=== PATIENT | male | born 1960 | race Caucasian/White ===

== ENCOUNTER → 2016-07-28 | Outpatient (CLI) | payer OTHER ==
[2016-05-05 05:51] VITALS: BP 146/74
[~2016-07-28] MED LIST: ASPI81TA2 PO; CEFU250S PO; CIPR250T30 PO; CRESTOR20 MG PO; DULO20CA PO; FENT1PAT21 TP; GUAI12003 PO; HYDR-2672 PO; HYDR200T5 PO; HYDR40TA PO; IPRA3AMP NEB; LEVO25TA4 PO; LORA0.5T PO; MULT-208 PO; MYCO500T PO; OMEP20CA9 PO; PRED5TAB PO; ZOLP5TAB PO
[2016-07-28 09:06] LABS: BASO % 1 % (0-3); EOS # 0.1 x10^3/uL (0.0-0.7); EOS % 1 % (0-3); HEMATOCRIT 38.4 % (39.0-53.0); HEMOGLOBIN 12.6 g/dL (13.0-17.5); LYMPH # 0.8 x10^3/uL (1.0-4.8); LYMPH % 9 % (24-48); MEAN CORPUSCULAR HEMOGLOBIN 31 pg (25-35); MEAN CORPUSCULAR HGB CONC 33 g/dL (31-37); MEAN CORPUSCULAR VOLUME 94 fL (79-100); MONO # 0.6 x10^3/uL (0.0-1.1); MONO % 7 % (0-9); NEUT # 7.2 x10^3uL (1.8-7.7); NEUT % 82 % (31-73); PLATELET COUNT 254 x10^3/uL (140-400); RED CELL DISTRIBUTION WIDTH 13.8 % (11.5-14.5); WHITE BLOOD COUNT 8.7 x10^3/uL (4.0-11.0)
[2016-07-28 09:11] LABS: ALBUMIN 3.7 g/dL (3.4-5.0); ALBUMIN/GLOBULIN RATIO 0.9 (1.0-1.7); C REACTIVE PROTEIN 3.1 mg/L (0-3.3); CALCIUM 8.8 mg/dL (8.5-10.1); CREATININE 1.2 mg/dL (0.7-1.3); GFR 62.2; POTASSIUM 3.6 mmol/L (3.5-5.1); TOTAL BILIRUBIN 0.3 mg/dL (0.2-1.0); TOTAL PROTEIN 7.7 g/dL (6.4-8.2)
[2016-07-28 10:27] LABS: SEDIMENTATION RATE 20 (0-15)
== END | disposition home or self-care (01) ==
LOC: LAB 09:22
PROVIDERS: ATTEND Internal Medicine
DX: M25.50 Pain in unspecified joint (principal)
CPT/HCPCS: 36415; 80053; 85027; 85651; 86140

== ENCOUNTER → 2016-10-18 | Outpatient (CLI) | payer OTHER ==
[2016-05-05 05:51] VITALS: BP 146/74
[~2016-10-18] MED LIST changes: +ASPI-630 PO; -ASPI81TA2 PO; -DULO20CA PO; +DULO20CA50 PO; -HYDR-2672 PO; +HYDR-2766 PO
[2016-10-18 14:54] LABS: BASO # 0.1 x10^3/uL (0.0-0.2); BASO % 1 % (0-3); EOS # 0.3 x10^3/uL (0.0-0.7); EOS % 5 % (0-3); HEMATOCRIT 36.6 % (39.0-53.0); HEMOGLOBIN 12.2 g/dL (13.0-17.5); LYMPH # 0.8 x10^3/uL (1.0-4.8); LYMPH % 14 % (24-48); MEAN CORPUSCULAR HEMOGLOBIN 31 pg (25-35); MEAN CORPUSCULAR HGB CONC 34 g/dL (31-37); MEAN CORPUSCULAR VOLUME 92 fL (79-100); MONO # 0.6 x10^3/uL (0.0-1.1); MONO % 11 % (0-9); NEUT # 3.7 x10^3uL (1.8-7.7); NEUT % 69 % (31-73); PLATELET COUNT 188 x10^3/uL (140-400); RED BLOOD COUNT 3.99 x10^6/uL (4.30-5.70); RED CELL DISTRIBUTION WIDTH 13.8 % (11.5-14.5); WHITE BLOOD COUNT 5.4 x10^3/uL (4.0-11.0)
[2016-10-18 14:57] LABS: ALBUMIN 3.7 g/dL (3.4-5.0); C REACTIVE PROTEIN 2.3 mg/L (0-3.3); CALCIUM 8.9 mg/dL (8.5-10.1); CREATININE 1.2 mg/dL (0.7-1.3); GFR 62.2; POTASSIUM 4.4 mmol/L (3.5-5.1); TOTAL BILIRUBIN 0.4 mg/dL (0.2-1.0); TOTAL PROTEIN 7.5 g/dL (6.4-8.2)
[2016-10-18 15:59] LABS: SEDIMENTATION RATE 22 (0-15)
== END | disposition home or self-care (01) ==
LOC: LAB 14:19
PROVIDERS: ATTEND Internal Medicine
DX: M05.742 Rheumatoid arthritis with rheumatoid factor of left hand without organ or systems involvement (principal); Z79.899 Other long term (current) drug therapy
CPT/HCPCS: 36415; 80053; 85027; 85651; 86140

== ENCOUNTER → 2017-03-23 | Outpatient (CLI) | payer MEDICARE ==
[2016-05-05 05:51] VITALS: BP 146/74
--- NOTE | 2017-03-23 17:55 | RAD ---
Chest x-ray Indication: Chest congestion, cough Technique: PA and lateral chest Comparison: None Findings: Heart is mildly enlarged in size. No pneumothorax or pleural effusion. There is honeycombing noted in bilateral lungs also seen on previous CT from 05/04/2016. Scattered patchy opacities are noted in the lung bases. Visualized bony thorax within normal limits. Impression: Findings of interstitial lung disease. Superimposed viral/atypical pneumonia not ruled out.
== END | disposition home or self-care (01) ==
LOC: DXRAD 13:29
PROVIDERS: ATTEND Family Medicine
DX: J98.4 Other disorders of lung (principal); I51.7 Cardiomegaly
CPT/HCPCS: 71020

== ENCOUNTER 2017-03-31 15:46 | Inpatient (IN) | payer OTHER, MEDICARE ==
[~2017-03-31] VITALS: Ht 181.6 cm; Wt 155.1 kg
[2017-03-31 16:11] VITALS: BP 162/82
[2017-03-31 16:55] LABS: ALBUMIN 3.1 g/dL (3.4-5.0); ALBUMIN/GLOBULIN RATIO 0.7 (1.0-1.7); CREATININE 1.3 mg/dL (0.7-1.3); GFR 56.5; POTASSIUM 4.1 mmol/L (3.5-5.1); TOTAL BILIRUBIN 0.4 mg/dL (0.2-1.0); TOTAL PROTEIN 7.7 g/dL (6.4-8.2)
--- NOTE | 2017-03-31 17:07 | RAD ---
CT of the chest without contrast, 03/31/2017: History: Pneumonia, fibrosis Noncontrast scans were obtained as requested. Comparison is made to a study from 05/04/2016. Again noted is extensive pulmonary fibrosis with bronchiectasis and honeycombing. There is dominant involvement of the right upper and lower lobes. There are also underlying emphysematous changes. No superimposed acute infiltrate or mass is seen. There is no evidence of pleural fluid. There is mild calcific plaquing of the thoracic aorta. Several coronary artery calcifications are noted. No mediastinal adenopathy is seen. The heart is of normal size. A lap band type device is in place related to the proximal aspect of the stomach. Moderate hypertrophic spurring is present in the spine with bony bridging at multiple levels. IMPRESSION: 1. Emphysema with fibrosis, bronchiectasis and honeycombing, similar to that seen on 05/04/2016. 2. No superimposed acute infiltrate is identified. PQRS Compliance Statement: One or more of the following individualized dose reduction techniques were utilized for this examination: 1. Automated exposure control 2. Adjustment of the mA and/or kV according to patient size 3. Use of iterative reconstruction technique
[2017-03-31 17:18] LABS: BASO # 0.1 x10^3/uL (0.0-0.2); BASO % 0 % (0-3); EOS # 0.2 x10^3/uL (0.0-0.7); EOS % 1 % (0-3); HEMATOCRIT 37.8 % (39.0-53.0); HEMOGLOBIN 12.7 g/dL (13.0-17.5); LYMPH # 0.5 x10^3/uL (1.0-4.8); LYMPH % 3 % (24-48); MEAN CORPUSCULAR HEMOGLOBIN 31 pg (25-35); MEAN CORPUSCULAR HGB CONC 34 g/dL (31-37); MEAN CORPUSCULAR VOLUME 91 fL (79-100); MONO % 6 % (0-9); NEUT # 15.2 x10^3uL (1.8-7.7); NEUT % 90 % (31-73); PLATELET COUNT 359 x10^3/uL (140-400); RED BLOOD COUNT 4.16 x10^6/uL (4.30-5.70); RED CELL DISTRIBUTION WIDTH 13.6 % (11.5-14.5); WHITE BLOOD COUNT 16.9 x10^3/uL (4.0-11.0)
[2017-03-31] MEDS ORDERED: MORP30TA83 PO (17:58)
[2017-03-31] MEDS ORDERED: TRIA0.25 PO (17:58)
[2017-03-31] MEDS ORDERED: CHOL2000 PO (17:58)
[2017-03-31] MEDS ORDERED: LORA1TAB47 PO (17:58)
[2017-03-31] MEDS ORDERED: CARB1TAB2 PO (17:58)
[2017-03-31] MEDS ORDERED: LEVO112T4 PO (17:58)
[2017-03-31] MEDS ORDERED: GUAI600T47 PO (17:58)
[2017-03-31] MEDS ORDERED: PANT40TA3 PO (17:58)
[2017-03-31] MEDS ORDERED: DOCU-109 PO (17:58)
[2017-03-31] MEDS: IPRATRPIUM/ALBUTEROL 0.5/2.5MG 3 ML NEBU. NEB SCH ×2 (18:15→21:34)
[2017-03-31 18:41] VITALS: BP 141/93
[2017-03-31] MEDS: VANCOMYCIN PER PHARMACY MC PRN (19:04)
[2017-03-31] MEDS ORDERED: IPRATRPIUM/ALBUTEROL 0.5/2.5MG 3 ML NEBU. NEB SCH (20:00)
[2017-03-31] MEDS: VANCOMYCIN 2 GM in IV NORMAL SALINE 500ML 500 ML IV SCH (20:15)
[2017-03-31] MEDS: LACTOBACILLUS RHAMNOSUS GG 1 CAPSULE. PO SCH (20:16)
[2017-03-31] MEDS: ZOLPIDEM 10 MG TABLET. PO SCH (20:17)
[2017-03-31] MEDS: HYDROXYCHLOROQUINE 200 MG TABLET PO SCH (20:19)
[2017-03-31] MEDS: MORPHINE ER 30 MG TABLET.ER PO SCH (20:19)
[2017-03-31] MEDS: CARBIDOPA/LEVODOPA 25/100MG TABLET PO SCH (20:20)
[2017-03-31 22:22] LABS: % BANDS 2 % (0-9); % BASOS 1 % (0-3); % EOS 1 % (0-5); % LYMPHS 3 % (24-48); % MONOS 7 % (0-10); % SEGS 86 % (35-66)
[2017-03-31 22:25] LABS: PLT ESTIMATE ADEQUATE (ADEQUATE)
[2017-03-31 23:21] VITALS: BP 107/71
[2017-04-01 05:08] VITALS: BP 118/74
[2017-04-01] MEDS: IPRATRPIUM/ALBUTEROL 0.5/2.5MG 3 ML NEBU. NEB SCH ×4 (05:54→21:07)
[2017-04-01] MEDS: LEVOTHYROXINE 112 MCG TABLET PO SCH (06:05)
[2017-04-01 06:38] LABS: BASO # 0.1 x10^3/uL (0.0-0.2); BASO % 1 % (0-3); EOS # 0.1 x10^3/uL (0.0-0.7); EOS % 2 % (0-3); HEMATOCRIT 34.3 % (39.0-53.0); HEMOGLOBIN 11.5 g/dL (13.0-17.5); LYMPH # 1.3 x10^3/uL (1.0-4.8); LYMPH % 14 % (24-48); MEAN CORPUSCULAR HEMOGLOBIN 31 pg (25-35); MEAN CORPUSCULAR HGB CONC 33 g/dL (31-37); MEAN CORPUSCULAR VOLUME 91 fL (79-100); MONO # 0.9 x10^3/uL (0.0-1.1); MONO % 10 % (0-9); NEUT # 6.6 x10^3uL (1.8-7.7); NEUT % 73 % (31-73); PLATELET COUNT 265 x10^3/uL (140-400); RED BLOOD COUNT 3.76 x10^6/uL (4.30-5.70); RED CELL DISTRIBUTION WIDTH 13.8 % (11.5-14.5); WHITE BLOOD COUNT 9.1 x10^3/uL (4.0-11.0)
[2017-04-01 06:43] LABS: ALBUMIN 2.7 g/dL (3.4-5.0); ALBUMIN/GLOBULIN RATIO 0.6 (1.0-1.7); CALCIUM 8.7 mg/dL (8.5-10.1); CREATININE 1.1 mg/dL (0.7-1.3); GFR 68.5; POTASSIUM 3.8 mmol/L (3.5-5.1); TOTAL BILIRUBIN 0.3 mg/dL (0.2-1.0); TOTAL PROTEIN 6.9 g/dL (6.4-8.2)
[2017-04-01] MEDS: VANCOMYCIN 2 GM in IV NORMAL SALINE 500ML 500 ML IV SCH ×2 (08:12→20:39)
[2017-04-01] MEDS: MORPHINE ER 30 MG TABLET.ER PO SCH ×2 (08:13→20:38)
[2017-04-01] MEDS: ATORVASTATIN CALCIUM 20 MG TABLET PO SCH (08:13)
[2017-04-01] MEDS: PANTOPRAZOLE 40 MG TABLET. PO SCH (08:13)
[2017-04-01] MEDS: DULoxetine HCL 60 MG CAPSULE.DR PO SCH (08:14)
[2017-04-01] MEDS: ASPIRIN 81 MG TAB.CHEW PO SCH (08:14)
[2017-04-01] MEDS: LACTOBACILLUS RHAMNOSUS GG 1 CAPSULE. PO SCH ×2 (08:14→20:37)
[2017-04-01] MEDS: predniSONE 5 MG TABLET PO SCH (08:14)
[2017-04-01] MEDS ORDERED: FUROSEMIDE 20 MG/2 ML VIAL IVP ONE (09:15)
[2017-04-01] MEDS: ENOXAPARIN 40 MG/0.4 ML DISP.SYRIN. SQ SCH ×2 (09:25→20:37)
[2017-04-01] MEDS: DOCUSATE SODIUM 100 MG CAPSULE PO SCH (09:26)
[2017-04-01] MEDS: HYDROXYCHLOROQUINE 200 MG TABLET PO SCH ×2 (09:27→20:37)
--- NOTE | 2017-04-01 10:28 | PN ---
DATE: 03/31/2017 INDICATIONS: The patient with an exacerbation of COPD, acute bronchitis. He had Staph aureus in his sputum. He had a white count of nearly 17,000 on admission. The patient otherwise this morning says he is feeling better. He is on vancomycin and Levaquin. He is making good progress in that regard. He is bringing up quite a bit of phlegm. The patient initially did have a blood pressure of 160/80, respiratory rate 20, pulse 105, temperature 98.4, oxygen saturation 91% on room air. He continues to receive breathing treatments. PHYSICAL EXAMINATION: GENERAL: On exam, pleasant white male, in no apparent distress. However, the patient is on oxygen. The patient otherwise seems to be resting fairly comfortably. LUNGS: Show coarse breath sounds, rhonchi even in the upper lobes. He sounds wet throughout. CARDIOVASCULAR: Regular sinus rhythm. ABDOMEN: Soft, protuberant. EXTREMITIES: No clubbing, cyanosis nor edema. NEUROLOGIC: The patient is alert and oriented x 3. The patient is on Lovenox. We will give him a short course of Lasix and make further evaluation on him. IMPRESSION: Acute exacerbation of chronic obstructive pulmonary disease, acute bronchitis with Staphylococcus aureus, type 2 diabetes, and mild to moderate protein malnutrition. SANDRA NEGRETE MD DR: RAMONA/neetu JOB#: [id number] / [id number]
[2017-04-01 10:58] VITALS: BP 120/84
[2017-04-01 15:50] VITALS: BP 102/78
[2017-04-01] MEDS: levoFLOXacin 750 MG TABLET PO SCH (16:07)
[2017-04-01 19:40] VITALS: BP 118/81
[2017-04-01] MEDS: ZOLPIDEM 10 MG TABLET. PO SCH (20:37)
[2017-04-01] MEDS: LORazepam 0.5 MG TABLET PO PRN (20:37)
[2017-04-01] MEDS: CARBIDOPA/LEVODOPA 25/100MG TABLET PO SCH (20:37)
[2017-04-01 23:03] VITALS: BP 130/67
[2017-04-02] MEDS: IPRATRPIUM/ALBUTEROL 0.5/2.5MG 3 ML NEBU. NEB SCH ×4 (05:42→21:04)
[2017-04-02] MEDS: LEVOTHYROXINE 112 MCG TABLET PO SCH (06:12)
[2017-04-02 06:17] VITALS: BP 118/79
[2017-04-02 08:04] LABS: VANC TR 27.2 mcg/mL (10.0-20.0)
[2017-04-02 08:13] LABS: BASO % 1 % (0-3); EOS # 0.4 x10^3/uL (0.0-0.7); EOS % 4 % (0-3); HEMATOCRIT 34.1 % (39.0-53.0); HEMOGLOBIN 11.3 g/dL (13.0-17.5); LYMPH % 10 % (24-48); MEAN CORPUSCULAR HEMOGLOBIN 30 pg (25-35); MEAN CORPUSCULAR HGB CONC 33 g/dL (31-37); MEAN CORPUSCULAR VOLUME 91 fL (79-100); MONO # 0.9 x10^3/uL (0.0-1.1); MONO % 10 % (0-9); NEUT # 7.3 x10^3uL (1.8-7.7); NEUT % 76 % (31-73); PLATELET COUNT 284 x10^3/uL (140-400); RED BLOOD COUNT 3.75 x10^6/uL (4.30-5.70); RED CELL DISTRIBUTION WIDTH 14.2 % (11.5-14.5); WHITE BLOOD COUNT 9.6 x10^3/uL (4.0-11.0)
[2017-04-02 08:20] LABS: ALBUMIN 2.8 g/dL (3.4-5.0); ALBUMIN/GLOBULIN RATIO 0.7 (1.0-1.7); CALCIUM 8.8 mg/dL (8.5-10.1); CREATININE 1.2 mg/dL (0.7-1.3); POTASSIUM 3.7 mmol/L (3.5-5.1); TOTAL BILIRUBIN 0.3 mg/dL (0.2-1.0); TOTAL PROTEIN 7.1 g/dL (6.4-8.2)
[2017-04-02] MEDS: LACTOBACILLUS RHAMNOSUS GG 1 CAPSULE. PO SCH ×2 (08:22→20:08)
[2017-04-02] MEDS: ATORVASTATIN CALCIUM 20 MG TABLET PO SCH (08:22)
[2017-04-02] MEDS: DULoxetine HCL 60 MG CAPSULE.DR PO SCH (08:23)
[2017-04-02] MEDS: predniSONE 5 MG TABLET PO SCH (08:24)
[2017-04-02] MEDS: MORPHINE ER 30 MG TABLET.ER PO SCH ×2 (08:24→20:08)
[2017-04-02] MEDS: ASPIRIN 81 MG TAB.CHEW PO SCH (08:24)
[2017-04-02] MEDS: PANTOPRAZOLE 40 MG TABLET. PO SCH (08:24)
[2017-04-02] MEDS: HYDROXYCHLOROQUINE 200 MG TABLET PO SCH ×2 (08:25→20:09)
[2017-04-02] MEDS: DOCUSATE SODIUM 100 MG CAPSULE PO SCH (08:25)
[2017-04-02] MEDS: VANCOMYCIN PER PHARMACY MC PRN (08:58)
[2017-04-02] MEDS: ENOXAPARIN 40 MG/0.4 ML DISP.SYRIN. SQ SCH ×2 (10:14→20:07)
[2017-04-02 10:40] VITALS: BP 124/87
[2017-04-02] MEDS ORDERED: FUROSEMIDE 20 MG/2 ML VIAL IVP ONE (13:30)
[2017-04-02 15:56] VITALS: BP 117/75
[2017-04-02] MEDS: levoFLOXacin 750 MG TABLET PO SCH (16:30)
[2017-04-02 19:32] VITALS: BP 108/56
[2017-04-02] MEDS: CARBIDOPA/LEVODOPA 25/100MG TABLET PO SCH (20:07)
[2017-04-02] MEDS: LORazepam 0.5 MG TABLET PO PRN (20:08)
[2017-04-02] MEDS: ZOLPIDEM 10 MG TABLET. PO SCH (20:08)
[2017-04-02] MEDS: VANCOMYCIN 2 GM in IV NORMAL SALINE 500ML 500 ML IV SCH (20:18)
[2017-04-02 22:45] VITALS: BP 103/71
--- NOTE | 2017-04-03 02:23 | PN ---
DATE: SUBJECTIVE: A 57-year-old male in with exacerbation of COPD. The patient says he is feeling a little bit better. He did have recent sputum with Staph aureus, unresponsive to oral antibiotics. As a result of this, the patient was admitted. PHYSICAL EXAMINATION: VITAL SIGNS: Blood pressure 124/87, respiratory rate 20, pulse 88, afebrile presently. HEENT: The patient's head was atraumatic, normocephalic. Eyes: PERRLA without jaundice. The mouth and throat were normal. NECK: Supple. LUNGS: Show diminished breath sounds, particularly a squeaky sensation, wheezing, especially in the right lower lobe and sounds like a wet sponge. CARDIOVASCULAR: Regular sinus rhythm, S1, S2. ABDOMEN: Protuberant. EXTREMITIES: No clubbing, cyanosis, or edema. NEUROLOGIC: Intact. LABORATORY DATA: Show glucose 115. Liver enzymes are normal. Albumin low at 2.8. IMPRESSION: Exacerbation of chronic obstructive pulmonary disease, emphysema, and pulmonary fibrosis. PLAN: Continue to monitor the patient accordingly. Continue with IV vancomycin for Staphylococcus aureus infection and make further assessment at that time. SANDRA NEGRETE MD DR: RAMONA/neetu JOB#: [id number] / [id number]
[2017-04-03] MEDS: LEVOTHYROXINE 112 MCG TABLET PO SCH (05:50)
[2017-04-03] MEDS: IPRATRPIUM/ALBUTEROL 0.5/2.5MG 3 ML NEBU. NEB SCH ×4 (05:51→21:22)
[2017-04-03 06:06] VITALS: BP 110/74
[2017-04-03] MEDS: PANTOPRAZOLE 40 MG TABLET. PO SCH (08:12)
[2017-04-03] MEDS: DULoxetine HCL 60 MG CAPSULE.DR PO SCH (08:12)
[2017-04-03] MEDS: LACTOBACILLUS RHAMNOSUS GG 1 CAPSULE. PO SCH ×2 (08:12→21:38)
[2017-04-03] MEDS: ATORVASTATIN CALCIUM 20 MG TABLET PO SCH (08:13)
[2017-04-03] MEDS: DOCUSATE SODIUM 100 MG CAPSULE PO SCH (08:13)
[2017-04-03] MEDS: ASPIRIN 81 MG TAB.CHEW PO SCH (08:13)
[2017-04-03] MEDS: MORPHINE ER 30 MG TABLET.ER PO SCH ×2 (08:13→21:39)
[2017-04-03] MEDS: HYDROXYCHLOROQUINE 200 MG TABLET PO SCH ×2 (08:14→21:48)
[2017-04-03] MEDS: ENOXAPARIN 40 MG/0.4 ML DISP.SYRIN. SQ SCH ×2 (08:15→21:38)
[2017-04-03 09:28] LABS: HEMATOCRIT 34.1 % (39.0-53.0); HEMOGLOBIN 11.4 g/dL (13.0-17.5); RED BLOOD COUNT 3.75 x10^6/uL (4.30-5.70); RED CELL DISTRIBUTION WIDTH 13.9 % (11.5-14.5); WHITE BLOOD COUNT 6.7 x10^3/uL (4.0-11.0)
[2017-04-03 09:44] LABS: CALCIUM 8.9 mg/dL (8.5-10.1); CREATININE 1.3 mg/dL (0.7-1.3); GFR 56.5; POTASSIUM 3.7 mmol/L (3.5-5.1)
[2017-04-03] MEDS: predniSONE 5 MG TABLET PO SCH (09:51)
[2017-04-03 11:14] VITALS: BP 118/75
[2017-04-03] MEDS ORDERED: FUROSEMIDE 40 MG/4 ML VIAL IVP ONE (12:00)
[2017-04-03 15:35] VITALS: BP 127/66
[2017-04-03] MEDS: levoFLOXacin 750 MG TABLET PO SCH (16:32)
[2017-04-03 19:32] VITALS: BP 126/76
[2017-04-03] MEDS: CARBIDOPA/LEVODOPA 25/100MG TABLET PO SCH (21:37)
[2017-04-03] MEDS: LORazepam 0.5 MG TABLET PO PRN (21:38)
[2017-04-03] MEDS: ZOLPIDEM 10 MG TABLET. PO SCH (21:42)
[2017-04-03] MEDS: VANCOMYCIN 2 GM in IV NORMAL SALINE 500ML 500 ML IV SCH (21:49)
[2017-04-03 22:59] VITALS: BP 138/79
--- NOTE | 2017-04-04 02:43 | PN ---
DATE: SUBJECTIVE: A 57-year-old male in with acute exacerbation of COPD. The patient is doing a little bit better. He is improving; however, still very congested and still has very wet rales noted primarily in the right lower lung base. The patient otherwise says he is feeling a little bit better. OBJECTIVE: VITAL SIGNS: Blood pressure 138/80, respiratory rate 20, pulse 99, temperature afebrile, oxygen saturation 92 on 3 liters. GENERAL: The patient alert and oriented. LUNGS: Show rales in the bases, primarily on the right side. CARDIOVASCULAR: Regular sinus rhythm, S1, S2. ABDOMEN: Soft. EXTREMITIES: No clubbing, cyanosis, nor edema. NEUROLOGIC: Intact. LABORATORY DATA: Basically stable with terms of hemoglobin and hematocrit remained basically stable as well as his electrolytes and blood sugars. IMPRESSION: Acute exacerbation of chronic obstructive pulmonary disease, type 2 diabetes, obesity, moderate protein malnutrition, emphysema and pulmonary fibrosis. PLAN: Continue with aggressive diuresis and make further evaluation on him as indicated. SANDRA NEGRETE MD DR: RAMONA/neetu JOB#: [id number] / [id number]
[2017-04-04] MEDS: LEVOTHYROXINE 112 MCG TABLET PO SCH (04:58)
[2017-04-04 05:18] VITALS: BP 130/75
[2017-04-04] MEDS: IPRATRPIUM/ALBUTEROL 0.5/2.5MG 3 ML NEBU. NEB SCH ×2 (05:43→10:36)
[2017-04-04] MEDS: ASPIRIN 81 MG TAB.CHEW PO SCH (08:06)
[2017-04-04] MEDS: LACTOBACILLUS RHAMNOSUS GG 1 CAPSULE. PO SCH (08:06)
[2017-04-04] MEDS: DOCUSATE SODIUM 100 MG CAPSULE PO SCH (08:06)
[2017-04-04] MEDS: ATORVASTATIN CALCIUM 20 MG TABLET PO SCH (08:07)
[2017-04-04] MEDS: DULoxetine HCL 60 MG CAPSULE.DR PO SCH (08:07)
[2017-04-04] MEDS: MORPHINE ER 30 MG TABLET.ER PO SCH (08:08)
[2017-04-04] MEDS: predniSONE 5 MG TABLET PO SCH (08:09)
[2017-04-04] MEDS: PANTOPRAZOLE 40 MG TABLET. PO SCH (08:09)
[2017-04-04] MEDS: ENOXAPARIN 40 MG/0.4 ML DISP.SYRIN. SQ SCH (08:10)
[2017-04-04] MEDS: HYDROXYCHLOROQUINE 200 MG TABLET PO SCH (08:10)
[2017-04-04] MEDS ORDERED: FUROSEMIDE 40 MG/4 ML VIAL IVP SCH (09:15)
[2017-04-04 10:46] VITALS: BP 124/78
[2017-04-04] MEDS ORDERED: FURO40TA4 PO (15:31)
[2017-04-04 15:33] VITALS: BP 110/67
--- NOTE | 2017-04-04 15:36 | CARD ---
APPROVED REPORT EXAM: Two-dimensional and M-mode echocardiogram with Doppler and color Doppler. Other Information Technically limited study due to body habitus. INDICATION Dyspnea RISK FACTORS Obesity 2D DIMENSIONS RVDd3.3 (2.9-3.5cm)Left Atrium(2D)3.9 (1.6-4.0cm) IVSd1.1 (0.7-1.1cm)Aortic Root(2D)3.0 (2.0-3.7cm) LVDd5.2 (3.9-5.9cm)LVOT Diameter2.4 (1.8-2.4cm) PWd1.0 (0.7-1.1cm)LVDs4.6 (2.5-4.0cm) FS (%) 11.6 %SV32.5 ml LVEF(%)24.9 (>50%) Aortic Valve AoV Peak Bill.161.4cm/sAoV VTI24.8cm AO Peak GR.10.4mmHgLVOT Peak Bill.114.4cm/s LVOT VTI 20.07cmAO Mean GR.5mmHg SEDRICK (VMAX)3.28xt3PWO (VTI)3.59cm2 Mitral Valve MV E Tcvlngks37.7cm/sMV DECEL NSIR370jm MV A Tesywztd62.1cm/sE/A Ratio0.7 LEFT VENTRICLE The left ventricle is normal size. There is normal left ventricular wall thickness. Suspect mild LV d ysfunction. EF 50% LV wall motion not well visualized due to body habitus, suspect inferolateral hypo kinesis. Transmitral Doppler flow pattern is Grade I-abnormal relaxation pattern. RIGHT VENTRICLE The right ventricle is normal size. The right ventricular systolic function is normal. ATRIA The left atrium size is normal. The right atrium size is normal. The interatrial septum is intact wit h no evidence for an atrial septal defect or patent foramen ovale as noted on 2-D or Doppler imaging. AORTIC VALVE The aortic valve is not well visualized but appears to be functioning normally by Doppler interrogati on. Doppler and Color Flow revealed no significant aortic regurgitation. There is no significant aort ic valvular stenosis. MITRAL VALVE The mitral valve is calcified but opens well. There is no evidence of mitral valve prolapse. There is no mitral valve stenosis. Doppler and Color Flow revealed no mitral valve regurgitation noted. TRICUSPID VALVE The tricuspid valve is normal in structure and function. Doppler and Color Flow revealed no tricuspid valve regurgitation noted. There is no tricuspid valve stenosis. PULMONIC VALVE Doppler and Color Flow revealed no pulmonic valvular regurgitation. There is no pulmonic valvular kandace nosis. GREAT VESSELS The aortic root is normal in size. The ascending aorta is normal in size. The IVC was not visualized. PERICARDIAL EFFUSION There is no evidence of significant pericardial effusion. Critical Notification Critical Value: No <Conclusion> Suspect mild LV dysfunction. EF 50% LV wall motion not well visualized due to body habitus, suspect inferolateral hypokinesis. No significant valvular disease or pulmonary hypertension.
[2017-04-04] MEDS: levoFLOXacin 750 MG TABLET PO SCH (15:42)
== END 2017-04-04 16:26 | disposition home or self-care (01) | DRG 871 ==
LOC: 1 SOUTH 15:46
PROVIDERS: ADMIT Family Medicine; ATTEND Family Medicine
PROC: 5A09357 Assistance with Respiratory Ventilation, Less than 24 Consecutive Hours, Continuous Positive Airway Pressure (ICD-10-PCS; principal; 2017-04-01)
PROC: 5A09357 Assistance with Respiratory Ventilation, Less than 24 Consecutive Hours, Continuous Positive Airway Pressure (ICD-10-PCS; 2017-04-02)
PROC: 5A09357 Assistance with Respiratory Ventilation, Less than 24 Consecutive Hours, Continuous Positive Airway Pressure (ICD-10-PCS; 2017-04-03)
PROC: 5A09357 Assistance with Respiratory Ventilation, Less than 24 Consecutive Hours, Continuous Positive Airway Pressure (ICD-10-PCS; 2017-04-04)
DX: A41.9 Sepsis, unspecified organism (principal); J15.211 Pneumonia due to Methicillin susceptible Staphylococcus aureus; E44.0 Moderate protein-calorie malnutrition; J96.11 Chronic respiratory failure with hypoxia; J84.10 Pulmonary fibrosis, unspecified; J84.89 Other specified interstitial pulmonary diseases; J44.1 Chronic obstructive pulmonary disease with (acute) exacerbation; M05.40 Rheumatoid myopathy with rheumatoid arthritis of unspecified site; Z68.42 Body mass index [BMI] 45.0-49.9, adult; J44.0 Chronic obstructive pulmonary disease with (acute) lower respiratory infection; E66.01 Morbid (severe) obesity due to excess calories; E11.9 Type 2 diabetes mellitus without complications; B95.61 Methicillin susceptible Staphylococcus aureus infection as the cause of diseases classified elsewhere; J20.9 Acute bronchitis, unspecified; E03.9 Hypothyroidism, unspecified; E78.5 Hyperlipidemia, unspecified; F32.9 Major depressive disorder, single episode, unspecified; G47.30 Sleep apnea, unspecified; M10.9 Gout, unspecified; M54.5 Low back pain; F17.210 Nicotine dependence, cigarettes, uncomplicated
CPT/HCPCS: 36415; 71250; 80048; 80053; 80202; 83605; 83880; 85007; 85025; 85027; 86738; 87040; 93306; 94640; 94760; G0238; J1650; J1940; J1956; J3370; J7040; J7512; J7620

== ENCOUNTER → 2017-07-23 | Outpatient (CLI) | payer MEDICARE ==
[~2017-07-23] MED LIST changes: +CARB1TAB2 PO; +CHOL2000 PO; +DOCU-109 PO; +FURO40TA4 PO; +GUAI600T47 PO; +LEVO112T4 PO; +LORA1TAB47 PO; +MORP30TA83 PO; +PANT40TA3 PO; +TRIA0.25 PO
[2017-07-23 11:06] LABS: BASO # 0.1 x10^3/uL (0.0-0.2); BASO % 1 % (0-3); EOS # 0.5 x10^3/uL (0.0-0.7); EOS % 7 % (0-3); HEMATOCRIT 39.3 % (39.0-53.0); HEMOGLOBIN 13.1 g/dL (13.0-17.5); LYMPH % 13 % (24-48); MEAN CORPUSCULAR HEMOGLOBIN 31 pg (25-35); MEAN CORPUSCULAR HGB CONC 33 g/dL (31-37); MEAN CORPUSCULAR VOLUME 93 fL (79-100); MONO # 0.8 x10^3/uL (0.0-1.1); MONO % 11 % (0-9); NEUT # 5.2 x10^3uL (1.8-7.7); NEUT % 68 % (31-73); PLATELET COUNT 206 x10^3/uL (140-400); RED BLOOD COUNT 4.22 x10^6/uL (4.30-5.70); RED CELL DISTRIBUTION WIDTH 13.9 % (11.5-14.5); WHITE BLOOD COUNT 7.6 x10^3/uL (4.0-11.0)
[2017-07-23 11:14] LABS: ALBUMIN 3.4 g/dL (3.4-5.0); ALBUMIN/GLOBULIN RATIO 0.9 (1.0-1.7); C REACTIVE PROTEIN 5.9 mg/L (0-3.3); CALCIUM 8.8 mg/dL (8.5-10.1); CREATININE 1.2 mg/dL (0.7-1.3); POTASSIUM 4.1 mmol/L (3.5-5.1); TOTAL BILIRUBIN 0.4 mg/dL (0.2-1.0); TOTAL PROTEIN 7.1 g/dL (6.4-8.2)
[2017-07-23 12:05] LABS: SEDIMENTATION RATE 32 (0-15)
== END | disposition home or self-care (01) ==
LOC: LAB 10:26
PROVIDERS: ATTEND Internal Medicine
DX: J84.9 Interstitial pulmonary disease, unspecified (principal); M05.742 Rheumatoid arthritis with rheumatoid factor of left hand without organ or systems involvement; Z79.899 Other long term (current) drug therapy
CPT/HCPCS: 36415; 80053; 85025; 85651; 86140

== ENCOUNTER 2017-08-17 15:28 | Inpatient (IN) | payer MEDICARE ==
[~2017-08-17] VITALS: Ht 181.6 cm; Wt 149.9 kg
[2017-08-17] MEDS ORDERED: IPRATRPIUM/ALBUTEROL 0.5/2.5MG 3 ML NEBU. NEB ONE (15:45)
[2017-08-17] MEDS ORDERED: methylPREDNISolone SOD SUCC PF 125 MG/2 ML VIAL. IV ONE ×2 (16:00→17:30)
--- NOTE | 2017-08-17 16:11 | RAD ---
Single view chest 08/17/2017 Clinical indication: Irregular heartbeat, shortness of breath. COMPARISON: Chest 03/23/2017, CT chest 03/31/2017. FINDINGS: Hypoinflation of both lungs. Heart size upper limits of normal. There is coarse interstitial thickening most prominent in the left lung base and throughout the right lung. No pleural effusion or pneumothorax. No new focal consolidation. IMPRESSION: No significant change in exam compared to the 03/23/2017 examination with coarse interstitial opacities, likely fibrosis. Electronically signed by: Edd Gates MD (08/17/2017 4:08 PM) [facility] [place]
--- NOTE | 2017-08-17 16:23 | PHYS DOC ---
Adult General Chief Complaint Chief Complaint: SHORTNESS OF BREATH HPI HPI Patient is a 57 year old male who presents with dyspnea. The patient reports 3 day history of cough productive of yellow sputum, shortness of breath at rest, decreased energy, right sided chest pain. Denies fevers, nausea, vomiting, diarrhea, lower extremity pain/swelling. History of pulmonary fibrosis, oxygen dependent 5L at baseline, former cigar smoker. Denies CAD, CHF, COPD. Referred here from Dr. Negrete's office. Review of Systems Review of Systems Constitutional: Denies fever or chills Eyes: Denies change in visual acuity HENT: Denies nasal congestion or sore throat Respiratory: Reports cough and shortness of breath Cardiovascular: Reports chest pain, denies edema GI: Denies abdominal pain, nausea, vomiting, or diarrhea : Denies dysuria or hematuria Musculoskeletal: Denies back pain or joint pain Integument: Denies rash or skin lesions Neurologic: Denies headache, focal weakness or sensory changes All other systems were reviewed and found to be within normal limits, except as documented in this note. Current Medications Current Medications Current Medications Medications (Trade) Dose Ordered Sig/Chris Start Time Stop Time Status Last Admin Dose Admin Albuterol/ Ipratropium (Duoneb) 3 ml 1X ONCE 08/17/17 15:45 08/17/17 15:50 DC Methylprednisolone Sodium Succinate (SOLU-Medrol 125MG VIAL) 125 mg 1X ONCE 08/17/17 16:00 08/17/17 16:01 Allergies Allergies Allergies Coded Allergies Type Severity Reaction Last Updated Verified erythromycin base Allergy Severe 05/05/16 Yes Sulfa (Sulfonamide Antibiotics) Allergy Intermediate 05/04/16 Yes acetaminophen Allergy Intermediate itching 03/31/17 Yes oxycodone Allergy Intermediate itching 03/31/17 Yes Physical Exam Physical Exam Constitutional: obese, no acute distress, non-toxic appearance. HENT: Normocephalic, atraumatic, bilateral external ears normal, oropharynx moist, nose normal. no tonsillar enlargement or exudate. Eyes: conjunctiva normal, no discharge. Neck: supple, no stridor. Cardiovascular: RRR, no murmurs, no edema. Lungs & Thorax: breath sounds present bilaterally, coarse in right base, no definite wheezing, labored breathing without distress. Abdomen: soft, nontender, nondistended. Skin: Warm, dry, no erythema, no rash. Back: No tenderness. Extremities: No tenderness, no edema. no calf tenderness or swelling, distal pulses palpable bilaterally in lower extremities. Neurologic: Alert and oriented X 3, no focal deficits noted. Psychologic: Affect normal, judgement normal, mood normal. EKG EKG interpreted by me: Radiology/Procedures Radiology/Procedures PROCEDURE: CHEST AP ONLY Single view chest 08/17/2017 Clinical indication: Irregular heartbeat, shortness of breath. COMPARISON: Chest 03/23/2017, CT chest 03/31/2017. FINDINGS: Hypoinflation of both lungs. Heart size upper limits of normal. There is coarse interstitial thickening most prominent in the left lung base and throughout the right lung. No pleural effusion or pneumothorax. No new focal consolidation. IMPRESSION: No significant change in exam compared to the 03/23/2017 examination with coarse interstitial opacities, likely fibrosis. Electronically signed by: Mi Gates MD (08/17/2017 4:08 PM) [facility] DICTATED AND SIGNED BY: MI GATES MD DATE: 08/17/17 1606 Course & Med Decision Making Course & Med Decision Making Pertinent Labs and Imaging studies reviewed. (See chart for details) Patient presents with shortness of breath. Continued administering oxygen. Gave nebulized breathing treatment and solumedrol. Obtained labs, EKG, CXR. No definite infiltrate but tachycardic upon arrival with leukocytosis. Will give rocephin for possible bronchitis. Patient still dyspneic. Discussed with Dr. Negrete who agrees to accept for admission to inpatient status. Will give lasix 40 mg BID. The patient agrees with plan of care, is admitted in stable condition. [] Dragon Disclaimer Dragon Disclaimer This electronic medical record was generated, in whole or in part, using a voice recognition dictation system. Departure Departure: Impression: Primary Impression: Acute bronchitis Additional Impressions: Pulmonary fibrosis Leukocytosis Disposition: ADMITTED INPATIENT Admitting Physician: Sandra Negrete Condition: STABLE Referrals: SANDRA NEGRETE MD (PCP) Problem Qualifiers LEONA COX MD Aug 17, 2017 16:23
[2017-08-17 16:25] LABS: BASO % 0 % (0-3); EOS % 0 % (0-3); HEMATOCRIT 36.6 % (39.0-53.0); HEMOGLOBIN 12.4 g/dL (13.0-17.5); LYMPH # 0.5 x10^3/uL (1.0-4.8); LYMPH % 3 % (24-48); MEAN CORPUSCULAR HEMOGLOBIN 31 pg (25-35); MEAN CORPUSCULAR HGB CONC 34 g/dL (31-37); MEAN CORPUSCULAR VOLUME 91 fL (79-100); MONO # 1.3 x10^3/uL (0.0-1.1); MONO % 8 % (0-9); NEUT % 89 % (31-73); PLATELET COUNT 215 x10^3/uL (140-400); RED CELL DISTRIBUTION WIDTH 13.3 % (11.5-14.5); WHITE BLOOD COUNT 15.8 x10^3/uL (4.0-11.0)
[2017-08-17 16:45] LABS: ALBUMIN 3.2 g/dL (3.4-5.0); ALBUMIN/GLOBULIN RATIO 0.7 (1.0-1.7); CREATININE 1.2 mg/dL (0.7-1.3); POTASSIUM 3.8 mmol/L (3.5-5.1); TOTAL BILIRUBIN 0.5 mg/dL (0.2-1.0); TOTAL PROTEIN 7.7 g/dL (6.4-8.2)
[2017-08-17 16:49] LABS: INFLUENZA A PATIENT NEGATIVE (NEGATIVE); INFLUENZA B PATIENT NEGATIVE (NEGATIVE)
[2017-08-17] MEDS ORDERED: ONDANSETRON PF 4 MG/2 ML VIAL. IV PRN (17:30)
[2017-08-17] MEDS ORDERED: IV NORMAL SALINE 500ML 500 ML IV ONE (17:30)
[2017-08-17] MEDS ORDERED: FUROSEMIDE 40 MG/4 ML VIAL IVP ONE (17:30)
[2017-08-17] MEDS ORDERED: cefTRIAXone IV Push 1 GM VIAL. IVP ONE ×2 (17:30→17:45)
[2017-08-17] MEDS ORDERED: cefTRIAXone SODIUM 1 GM VIAL IV ONE (17:31)
--- NOTE | 2017-08-17 17:52 | EKG ---
[address] [address] Test Date: 2017-08-17 Test Time: 15:47:27 Pat Name: YOLANDA CONDE Department: Room: Gender: M [employer]: : [id number] Requested By: LEONA COX Order Number: [id number] Reading MD: Measurements Intervals [place] Rate: 112 P: 57 [place]: 156 QRS: -17 QRSD: 96 T: 52 QT: 308 QTc: 422 Interpretive Statements SINUS TACHYCARDIA VENTRICULAR PREMATURE COMPLEX(ES) LEFTWARD AXIS QRS(T) CONTOUR ABNORMALITY CONSIDER ANTEROLATERAL MYOCARDIAL DAMAGE ABNORMAL ECG RI6.01 No previous ECG available for comparison
[2017-08-17] MEDS ORDERED: ASPIRIN 81 MG TAB.CHEW PO ONE (18:00)
[2017-08-17 18:08] LABS: % BANDS 4 % (0-9); % LYMPHS 2 % (24-48); % MONOS 4 % (0-10); % SEGS 89 % (35-66)
--- NOTE | 2017-08-17 18:09 | NUR ---
PT YOLANDA CONDE 57 ADMITTED TO ROOM 119 FROM ED VIA AMBULANCE FOR BRONCHITIS. Pt is alert and oriented x4. On tele, SR/ST with occasional PVCs. Pt oriented to room. Will continue to monitor.
[2017-08-17 18:13] VITALS: BP 131/85
[2017-08-17 18:16] LABS: PLT ESTIMATE ADEQUATE (ADEQUATE)
[2017-08-17 18:39] LABS: % ATYL 1 % (0-0)
[2017-08-17] MEDS ORDERED: GABA300C8 (18:48)
[2017-08-17] MEDS ORDERED: ZOLP10TA PO (18:48)
[2017-08-17] MEDS ORDERED: LORazepam 0.5 MG TABLET PO PRN (19:00)
[2017-08-17 19:33] VITALS: BP 141/81
[2017-08-17] MEDS ORDERED: IPRATRPIUM/ALBUTEROL 0.5/2.5MG 3 ML NEBU. NEB SCH (21:00)
[2017-08-17] MEDS: PSEUDOEPHEDRINE ER 120 MG TABLET.ER. PO SCH (21:38)
[2017-08-17] MEDS: MORPHINE ER 30 MG TABLET.ER PO SCH (21:40)
[2017-08-17] MEDS: HYDROXYCHLOROQUINE 200 MG TABLET PO SCH (21:41)
[2017-08-17] MEDS: ZOLPIDEM 5 MG TABLET. PO SCH (21:41)
[2017-08-17] MEDS: ENOXAPARIN 40 MG/0.4 ML DISP.SYRIN. SQ SCH (21:42)
[2017-08-17] MEDS: IPRATRPIUM/ALBUTEROL 0.5/2.5MG 3 ML NEBU. NEB SCH (22:09)
[2017-08-17] MEDS: GABAPENTIN 300 MG CAPSULE. PO SCH (22:13)
[2017-08-17 23:00] VITALS: BP 133/67
[2017-08-18 03:16] VITALS: BP 143/75
[2017-08-18 05:01] VITALS: BP 127/71
[2017-08-18] MEDS: IPRATRPIUM/ALBUTEROL 0.5/2.5MG 3 ML NEBU. NEB SCH ×3 (05:33→16:13)
[2017-08-18] MEDS: LEVOTHYROXINE 112 MCG TABLET PO SCH (05:43)
[2017-08-18 06:40] LABS: BASO % 0 % (0-3); EOS % 0 % (0-3); HEMATOCRIT 36.1 % (39.0-53.0); HEMOGLOBIN 12.3 g/dL (13.0-17.5); LYMPH # 0.6 x10^3/uL (1.0-4.8); LYMPH % 7 % (24-48); MEAN CORPUSCULAR HEMOGLOBIN 31 pg (25-35); MEAN CORPUSCULAR HGB CONC 34 g/dL (31-37); MEAN CORPUSCULAR VOLUME 92 fL (79-100); MONO # 0.2 x10^3/uL (0.0-1.1); MONO % 2 % (0-9); NEUT # 8.3 x10^3uL (1.8-7.7); NEUT % 91 % (31-73); PLATELET COUNT 184 x10^3/uL (140-400); RED BLOOD COUNT 3.92 x10^6/uL (4.30-5.70); RED CELL DISTRIBUTION WIDTH 13.5 % (11.5-14.5); WHITE BLOOD COUNT 9.2 x10^3/uL (4.0-11.0)
[2017-08-18 06:49] LABS: CALCIUM 9.1 mg/dL (8.5-10.1); CREATININE 1.4 mg/dL (0.7-1.3); GFR 51.9; POTASSIUM 3.6 mmol/L (3.5-5.1)
[2017-08-18] MEDS: PSEUDOEPHEDRINE ER 120 MG TABLET.ER. PO SCH ×2 (08:42→20:59)
[2017-08-18] MEDS: FUROSEMIDE 40 MG/4 ML VIAL IVP SCH ×2 (08:43→14:51)
[2017-08-18] MEDS: DOCUSATE SODIUM 100 MG CAPSULE PO SCH (08:43)
[2017-08-18] MEDS: ASPIRIN 81 MG TAB.CHEW PO SCH (08:44)
[2017-08-18] MEDS: GABAPENTIN 300 MG CAPSULE. PO SCH ×3 (08:44→21:00)
[2017-08-18] MEDS: DULoxetine HCL 60 MG CAPSULE.DR PO SCH (08:44)
[2017-08-18] MEDS: CHOLECALCIFEROL (VITAMIN D3) 1,000 UNIT TABLET PO SCH (08:44)
[2017-08-18] MEDS: ATORVASTATIN CALCIUM 20 MG TABLET PO SCH (08:44)
[2017-08-18] MEDS: PANTOPRAZOLE 40 MG TABLET. PO SCH (08:45)
[2017-08-18] MEDS: MORPHINE ER 30 MG TABLET.ER PO SCH ×2 (08:45→21:01)
[2017-08-18] MEDS: CETIRIZINE HCL 10 MG TABLET PO SCH (08:46)
[2017-08-18] MEDS: MULTIVITAMIN with MINERAL TABLET. PO SCH (08:46)
[2017-08-18] MEDS: ENOXAPARIN 40 MG/0.4 ML DISP.SYRIN. SQ SCH ×2 (08:47→20:59)
[2017-08-18] MEDS: HYDROXYCHLOROQUINE 200 MG TABLET PO SCH ×2 (08:48→21:01)
[2017-08-18] MEDS ORDERED: FUROSEMIDE 40 MG TABLET PO SCH (09:00)
--- NOTE | 2017-08-18 10:04 | PDOC2 ---
CONSULT Date of Admission DATE: 08/18/17 TIME: 09:59 Reason for Consult: SOB/CHF Problem List Problems Medical Problems: (1) Acute bronchitis Status: Acute (2) Leukocytosis Status: Acute (3) Pulmonary fibrosis Status: Acute History of Present Illness Mr Delaney is a 57 year old male with history of pulmonary fibrosis, edema, and significant family history of coronary artery disease who presents with complaints of upper respiratory type symptoms and progressive dyspnea over the last several days. He denies chest discomfort, orthopnea or PND, palpitations, lightheadedness or syncope. He does report lower extremity edema which is worse in the right leg. He has a very limited functional capacity of 1/4 block before needing to stop and catch his breath. He uses oxygen with exertion only. He did have an echo recently that revealed normal LV function and a probable inferolateral hypokinesis but was a technically difficult study. He has been essentially in bed over the last 3 days due to symptoms. He reports having been started on lasix outpatient every other day and symptoms had improved. His reports he has not been compliant with this recently. Past Medical History pulmonary fibrosis (5L exertional oxygen), rheumatoid arthritis, hyperlipidemia , hypothyroid, GERD, anxiety, depression Past Surgical History lap band, trigger finger, tonsillectomy Family History mother - from PE, sister - valve replacement, chf, bypass in her early 50s, age 58. Social History occasional cigar, quit > 3years ago, no significant ETOH, no illicit drugs Current Medications Current Medications Albuterol/ Ipratropium (Duoneb) 3 ml 1X ONCE NEB Last administered on at 16:10; Start 08/17/17 at 15:45; Stop 08/17/17 at 15:50; Status DC Methylprednisolone Sodium Succinate (SOLU-Medrol 125MG VIAL) 125 mg 1X ONCE IV Last administered on 08/17/17at 16:20; Start 08/17/17 at 16:00; Stop 08/17/17 at 16:01; Status DC Sodium Chloride 500 ml @ 0 mls/hr 1X ONCE IV ; Start 08/17/17 at 17:30; Stop at 17:32; Status DC Furosemide (Lasix) 40 mg 1X ONCE IVP Last administered on 08/17/17at 18:08; Start 08/17/17 at 17:30; Stop 08/17/17 at 17:32; Status DC Methylprednisolone Sodium Succinate (SOLU-Medrol 125MG VIAL) 125 mg 1X ONCE IV ; Start 08/17/17 at 17:30; Stop 08/17/17 at 17:51; Status DC Ceftriaxone Sodium 1 gm/ Sodium Chloride 50 ml @ 100 mls/hr 1X ONCE IV ; Start 08/17/17 at 17:30; Stop 08/17/17 at 17:33; Status DC Ondansetron HCl (Zofran) 4 mg PRN Q4HRS PRN IV NAUSEA/VOMITING; Start 08/17/17 at 17:30; Stop 08/18/17 at 17:29 Albuterol/ Ipratropium (Duoneb) 3 ml RTQID NEB Last administered on 08/18/17at 09:36; Start 08/17/17 at 20:00; Stop 08/18/17 at 19:59 Furosemide (Lasix) 40 mg BID92 IVP Last administered on 08/18/17at 08:43; Start 08/18/17 at 09:00 Ceftriaxone Sodium (Rocephin) 1 gm STK-MED ONCE IVP ; Start 08/17/17 at 17:30; Stop 08/17/17 at 17:31; Status DC Ceftriaxone Sodium (Rocephin) 1 gm STK-MED ONCE IV ; Start 08/17/17 at 17:31; Stop 08/17/17 at 17:32; Status DC Ceftriaxone Sodium (Rocephin) 1 gm 1X ONCE IVP Last administered on 08/17/17at 18:08; Start 08/17/17 at 17:45; Stop 08/17/17 at 17:46; Status DC Aspirin (Children'S Aspirin) 324 mg 1X ONCE PO Last administered on 08/17/17at 19:54; Start 08/17/17 at 18:00; Stop 08/17/17 at 18:02; Status DC Aspirin (Children'S Aspirin) 81 mg DAILY PO Last administered on 08/18/17at 08: 44; Start 08/18/17 at 09:00 Docusate Sodium (Colace) 100 mg DAILY PO Last administered on 08/18/17at 08:43; Start 08/18/17 at 09:00 Duloxetine HCl (Cymbalta) 60 mg DAILY PO Last administered on 08/18/17 08:44; Start 08/18/17 at 09:00 Furosemide (Lasix) 40 mg DAILY PO Last administered on 08/18/17 08:56; Start 08/18/17 at 09:00 Gabapentin (Neurontin) 300 mg TID PO Last administered on 08/18/17 08:44; Start 08/17/17 at 21:00 Guaifenesin (Mucinex Er) 600 mg BID PO Last administered on 08/18/17 08:44; Start 08/17/17 at 21:00 Hydroxychloroquine Sulfate (Plaquenil) 200 mg BID PO Last administered on 08:48; Start 08/17/17 at 21:00 Albuterol/ Ipratropium (Duoneb) 3 ml QID NEB ; Start 08/17/17 at 21:00; Stop at 21:00; Status DC Levothyroxine Sodium (Synthroid) 112 mcg DAILY06 PO Last administered on at 05:43; Start 08/18/17 at 06:00 Lorazepam (Ativan) 0.5 mg PRN TID PRN PO ANXIETY / AGITATION; Start 08/17/17 at 19:00 Morphine Sulfate (Ms Contin) 30 mg BID PO Last administered on 08/18/17 08:45 ; Start 08/17/17 at 21:00 Pantoprazole Sodium (Protonix) 40 mg DAILYAC PO Last administered on 08/18/17 08:45; Start 08/18/17 at 07:30 Vitamin D (Vitamin D3) 2,000 unit DAILY PO Last administered on 08/18/17 08:44 ; Start 08/18/17 at 09:00 Cetirizine HCl (ZyrTEC) 5 mg DAILY PO Last administered on 08/18/17 08:46; Start 08/18/17 at 09:00 Multivitamins/ Calcium (Thera-M Plus) 1 tab DAILY PO Last administered on 08:46; Start 08/18/17 at 09:00 Atorvastatin Calcium (Lipitor) 80 mg DAILY PO Last administered on 08/18/17 08 :44; Start 08/18/17 at 09:00 Zolpidem Tartrate (Ambien) 10 mg QHS PO Last administered on 08/17/17at 21:41; Start 08/17/17 at 21:00 Enoxaparin Sodium (Lovenox) 40 mg Q12HR SQ Last administered on 08/18/17at 08:47 ; Start 08/17/17 at 21:00 Ceftriaxone Sodium 1 gm/ Sodium Chloride 50 ml @ 100 mls/hr Q24H IV ; Start at 19:15; Stop 08/17/17 at 19:43; Status DC Levofloxacin/ Dextrose (Levaquin Per Pharmacy) 1 each PRN DAILY PRN MC SEE COMMENTS; Start 08/17/17 at 19:15 Ceftriaxone Sodium (Rocephin) 1 gm Q24H IVP ; Start 08/18/17 at 18:00 Levofloxacin/ Dextrose 150 ml @ 150 mls/hr Q24H IV Last administered on at 21:43; Start 08/17/17 at 20:00 Pseudoephedrine HCl (Sudafed 12-Hour) 120 mg BID PO Last administered on at 08:42; Start 08/17/17 at 21:00 Active Scripts Active Furosemide 40 Mg Tablet 1 Tab PO DAILY Duoneb 0.5-3(2.5) Mg/3 Ml (Albuterol/Ipratropium) 3 Ml Ampul.neb 3 Ml NEB QID Multi-Day Vitamins (Multivitamin) 1 Each Tablet 1 Tab PO DAILY Hydroxychloroquine Sulfate 200 Mg Tablet 1 Tab PO BID Lorazepam 0.5 Mg Tablet 1 Tab PO TID PRN Crestor (Rosuvastatin Calcium) 20 Mg Tablet 1 Tab PO DAILY Reported Gabapentin 300 Mg Capsule Ambien (Zolpidem Tartrate) 10 Mg Tablet 1 Tab PO QHS Mucinex (Guaifenesin) 600 Mg Tablet.er 1 Tab PO BID LAST DOSE GIVEN: DATE: TODAY TIME: AM NEXT DOSE DUE: DATE: TODAY TIME: PM Ms Contin (Morphine Sulfate) 30 Mg Tablet.er 1 Tab PO BID LAST DOSE GIVEN: DATE: TODAY TIME: AM NEXT DOSE DUE: DATE: TODAY TIME: PM Vitamin D (Cholecalciferol (Vitamin D3)) 2,000 Unit Capsule 1 Cap PO DAILY LAST DOSE GIVEN: DATE: TIME: NEXT DOSE DUE: DATE: TIME: Claritin-D 12 Hour Tablet (Loratadine/Pseudoephedrine) 1 Each Tab.er.12h 1 Each PO DAILY LAST DOSE GIVEN: DATE: TIME: NEXT DOSE DUE: DATE: TIME: Colace (Docusate Sodium) 100 Mg Capsule 100 Mg PO DAILY LAST DOSE GIVEN: DATE: TODAY TIME: AM NEXT DOSE DUE: DATE: TOMORROW TIME: AM Levothyroxine Sodium 112 Mcg Tablet 1 Tab PO DAILY LAST DOSE GIVEN: DATE: TODAY TIME: AM NEXT DOSE DUE: DATE: TOMORROW TIME: AM Protonix (Pantoprazole Sodium) 40 Mg Tablet.dr 1 Tab PO DAILY LAST DOSE GIVEN: DATE: TODAY TIME: AM NEXT DOSE DUE: DATE: TOMORROW TIME: AM Cymbalta (Duloxetine Hcl) 20 Mg Capsule.dr 3 Cap PO DAILY LAST DOSE GIVEN: DATE: TODAY TIME: AM NEXT DOSE DUE: DATE: TOMORR TIME: AM Aspirin 81 Mg Tab.chew 1 Tab PO DAILY LAST DOSE GIVEN: DATE: TODAY TIME: AM NEXT DOSE DUE: DATE: TOMORROW TIME: AM Allergies: Coded Allergies: erythromycin base (Verified Allergy, Severe, 05/05/16) Sulfa (Sulfonamide Antibiotics) (Verified Allergy, Intermediate, 05/04/16) acetaminophen (Verified Allergy, Intermediate, itching, 03/31/17) oxycodone (Verified Allergy, Intermediate, itching, 03/31/17) Review of System as per HPI General: YES: Fatigue, Malaise PSYCHOLOGICAL ROS: YES: Anxiety, Depression Respiratory: YES: Cough, SOB with excertion, Sputum Changes Cardiovascular: yes: Edema Musculoskeletal: YES: Joint Pain, Joint Stiffness General: Alert, Oriented X3, Cooperative, No acute distress HEENT: Atraumatic, EOMI, Mucous membr. moist/pink Lungs: Other (basilar crackles bilaterally, no wheezing or rhonchi) Heart: Regular rate, Normal S1, Normal S2, Other (no gallops, clicks or rubs) Abdomen: Normal bowel sounds, Soft, No tenderness, Other (obese) Extremities: Normal pulses, Other (+ bilateral lower extremity edema) Neuro: Normal speech, Strength at 5/5 X4 ext Psych/Mental Status: Mental status NL, Mood NL VITALS Vital Signs Date Time Temp Pulse Resp B/P (MAP) Pulse Ox O2 Delivery O2 Flow Rate FiO2 08/18/17 09:37 97 Nasal Cannula 3.5 08/18/17 05:01 97.7 74 18 127/71 (89) Labs Laboratory Tests Test 08/17/17 15:50 08/17/17 16:00 08/17/17 23:42 08/18/17 06:05 Influenza Type A (Rapid) Negative (NEGATIVE) Influenza Type B (Rapid) Negative (NEGATIVE) White Blood Count 15.8 x10^3/uL (4.0-11.0) 9.2 x10^3/uL (4.0-11.0) Red Blood Count 4.00 x10^6/uL (4.30-5.70) 3.92 x10^6/uL (4.30-5.70) Hemoglobin 12.4 g/dL (13.0-17.5) 12.3 g/dL (13.0-17.5) Hematocrit 36.6 % (39.0-53.0) 36.1 % (39.0-53.0) Mean Corpuscular Volume 91 fL (79-100) 92 fL (79-100) Mean Corpuscular Hemoglobin 31 pg (25-35) 31 pg (25-35) Mean Corpuscular Hemoglobin Concent 34 g/dL (31-37) 34 g/dL (31-37) Red Cell Distribution Width 13.3 % (11.5-14.5) 13.5 % (11.5-14.5) Platelet Count 215 x10^3/uL (140-400) 184 x10^3/uL (140-400) Neutrophils (%) (Auto) 89 % (31-73) 91 % (31-73) Lymphocytes (%) (Auto) 3 % (24-48) 7 % (24-48) Monocytes (%) (Auto) 8 % (0-9) 2 % (0-9) Eosinophils (%) (Auto) 0 % (0-3) 0 % (0-3) Basophils (%) (Auto) 0 % (0-3) 0 % (0-3) Neutrophils # (Auto) 14.0 x10^3uL (1.8-7.7) 8.3 x10^3uL (1.8-7.7) Lymphocytes # (Auto) 0.5 x10^3/uL (1.0-4.8) 0.6 x10^3/uL (1.0-4.8) Monocytes # (Auto) 1.3 x10^3/uL (0.0-1.1) 0.2 x10^3/uL (0.0-1.1) Eosinophils # (Auto) 0.0 x10^3/uL (0.0-0.7) 0.0 x10^3/uL (0.0-0.7) Basophils # (Auto) 0.0 x10^3/uL (0.0-0.2) 0.0 x10^3/uL (0.0-0.2) Segmented Neutrophils % 89 % (35-66) Band Neutrophils % 4 % (0-9) Lymphocytes % 2 % (24-48) Atypical Lymphocytes % (Manual) 1 % (0-0) Monocytes % 4 % (0-10) Platelet Estimate Adequate (ADEQUATE) Erythrocyte Sedimentation Rate 85 (0-15) Prothrombin Time 10.2 SEC (9.4-11.4) Prothromb Time International Ratio 1.0 (0.9-1.1) D-Dimer (Yu) 3.97 mg/L (0.00-0.50) Sodium Level 137 mmol/L (136-145) 137 mmol/L (136-145) Potassium Level 3.8 mmol/L (3.5-5.1) 3.6 mmol/L (3.5-5.1) Chloride Level 100 mmol/L (98-107) 99 mmol/L (98-107) Carbon Dioxide Level 26 mmol/L (21-32) 26 mmol/L (21-32) Anion Gap 11 (6-14) 12 (6-14) Blood Urea Nitrogen 17 mg/dL (8-26) 22 mg/dL (8-26) Creatinine 1.2 mg/dL (0.7-1.3) 1.4 mg/dL (0.7-1.3) Estimated GFR (Cockcroft-Gault) 62.0 51.9 BUN/Creatinine Ratio 14 (6-20) Glucose Level 102 mg/dL (70-99) 170 mg/dL (70-99) Lactic Acid Level 1.9 mmol/L (0.4-2.0) Calcium Level 9.0 mg/dL (8.5-10.1) 9.1 mg/dL (8.5-10.1) Magnesium Level 1.9 mg/dL (1.8-2.4) Total Bilirubin 0.5 mg/dL (0.2-1.0) Aspartate Amino Transf (AST/SGOT) 27 U/L (15-37) Alanine Aminotransferase (ALT/SGPT) 21 U/L (16-63) Alkaline Phosphatase 98 U/L (46-116) Creatine Kinase 66 U/L (39-308) Troponin I Quantitative < 0.017 ng/mL (0-0.055) < 0.017 ng/mL (0-0.055) C-Reactive Protein 177.0 mg/L (0-3.3) YP-Muf-C-Type Natriuretic Peptide 335 pg/mL (0-124) Total Protein 7.7 g/dL (6.4-8.2) Albumin 3.2 g/dL (3.4-5.0) Albumin/Globulin Ratio 0.7 (1.0-1.7) Images CXR - IMPRESSION: No significant change in exam compared to the 03/23/2017 examination with coarse interstitial opacities, likely fibrosis. EKG - sinus rhythm, LAD, early R transition, non specific t abn, PVCs. Assessment/Plan 1. acute on chronic respiratory insufficiency - likely multifactorial acute bronchitis - per PCP pulmonary fibrosis - mgmt per PCP possible mild acute diastolic HF - consider increased diuresis short term. monitor I/Os and daily weights. avoid sodium in diet. repeat echo with contrast. 2. abnormal EKG - non specific abnormalities with PVCs 3. inferolateral hypokinesis on echo - MPI in am 4. elevated d dimer - CTA chest, venous duplex 5. hyperlipidemia - check lipids 6. family history of premature coronary disease Problems: CHEPE ESPINOZA PERMIT COORDINATOR Aug 18, 2017 10:04
[2017-08-18 10:54] VITALS: BP 118/79
[2017-08-18] MEDS ORDERED: IOHEXOL 300 MG/ML 75 ML VIAL. IV ONE (11:00)
[2017-08-18] MEDS ORDERED: IOHEXOL 300 MG/ML 50 ML VIAL. IV ONE (11:00)
--- NOTE | 2017-08-18 12:50 | RAD ---
Bilateral lower extremity venous duplex ultrasound. 08/18/2017 12:46 PM Indication: + Elevated d-dimer. Shortness of breath. Comparison study: None Discussion: Sonographic evaluation of the deep veins of the bilateral lower extremities was performed. This includes grayscale imaging and color duplex imaging with spectral analysis. No evidence of deep venous thrombosis is seen. Interrogated veins are compressible and demonstrate augmentable blood flow and color Doppler imaging. Impression: No evidence of deep venous thrombosis involving either lower extremity.
[2017-08-18 14:57] VITALS: BP 142/83
--- NOTE | 2017-08-18 15:00 | RAD ---
PQRS Compliance Statement: One or more of the following individualized dose reduction techniques were utilized for this examination: 1. Automated exposure control 2. Adjustment of the mA and/or kV according to patient size 3. Use of iterative reconstruction technique CT CHEST WITH CONTRAST, PULMONARY ANGIOGRAM History: SHORT OF BREATH, ELEVATED D-DIMER, HX OF PULMONARY FIBROSIS Comparison: CT chest without contrast, 01/29/2017. Technique: Helical CT of the chest was performed after the administration of 100 cc of Omnipaque 300 intravenous contrast according to PE protocol. Axial and coronal reconstructions were obtained. 3-D MIP images were constructed to better evaluate the pulmonary arteries. Findings: Contrast opacification of the pulmonary arteries is nondiagnostic for evaluation of pulmonary embolus. 10 mm upper right paratracheal lymph node, smaller than on prior study. No hilar adenopathy. Great vessels are normal caliber. Mild coronary artery disease. Cardiac size normal, no pericardial effusion. No pleural effusion. Pulmonary fibrotic changes have not progressed. The central airways are patent. There is gastric lap band in appropriate position. Old right anterolateral fifth rib fracture. Degenerative spondylosis of the thoracic spine. IMPRESSION: 1. Study is nondiagnostic for pulmonary embolus. 2. Pulmonary fibrosis, no significant change from prior study. Electronically signed by: Sergey Alexis MD (08/18/2017 2:57 PM) [id number]
[2017-08-18] MEDS ORDERED: PERFLUTREN PROTEIN-A MICROSPHR 0.22 MG/ML 3 ML VIAL. IV ONE (15:45)
--- NOTE | 2017-08-18 16:46 | CARD ---
MR#: [id number] Date of Study: 08/18/2017 Ordering Physician: SANDRA NEGRETE, Referring Physician: SANDRA NEGRETE Tech: Ting Maloney ROSEMARY APPROVED REPORT EXAM: Two-dimensional and M-mode echocardiogram with Doppler and color Doppler. Other Information Quality : Technically Limited Technically limited study due to body habitus. INDICATION Dyspnea Congestive Heart Failure Echo Enhancing Agent Indication: Endocardial border delineation Agent/Amount Used: [id number] RISK FACTORS Obesity 2D DIMENSIONS Left Atrium(2D)3.1 (1.6-4.0cm)IVSd1.1 (0.7-1.1cm) Aortic Root(2D)3.5 (2.0-3.7cm)LVDd4.5 (3.9-5.9cm) LVOT Diameter2.4 (1.8-2.4cm)PWd1.1 (0.7-1.1cm) LVDs3.0 (2.5-4.0cm)FS (%) 34.3 % SV59.2 mlLVEF(%)60.4 (>50%) Aortic Valve AoV Peak Bill.158.7cm/sAoV VTI24.6cm AO Peak GR.10.1mmHgLVOT Peak Bill.149.7cm/s LVOT VTI 24.10cmAO Mean GR.6mmHg SEDRICK (VMAX)4.38ns7SCR (VTI)4.44cm2 Mitral Valve MV E Umzohsbo90.9cm/sMV DECEL [id number] MV A Ivbthyho068.9cm/sE/A Ratio0.6 LEFT VENTRICLE The left ventricle is normal size. There is normal left ventricular wall thickness. The left ventricu lar systolic function is normal. The Ejection Fraction is 55-60%. There is normal LV segmental wall m otion. RIGHT VENTRICLE The right ventricle is normal size. The right ventricular systolic function is normal. ATRIA The left atrium size is normal. The right atrium size is normal. The interatrial septum is intact wit h no evidence for an atrial septal defect or patent foramen ovale as noted on 2-D or Doppler imaging. AORTIC VALVE The aortic valve is calcified but opens well. Doppler and Color Flow revealed no significant aortic r egurgitation. There is no significant aortic valvular stenosis. MITRAL VALVE The mitral valve is calcified but opens well. There is no evidence of mitral valve prolapse. There is no mitral valve stenosis. Doppler and Color Flow revealed no mitral valve regurgitation noted. TRICUSPID VALVE The tricuspid valve is normal in structure and function. Doppler and Color Flow revealed no tricuspid valve regurgitation noted. There is no tricuspid valve stenosis. PULMONIC VALVE The pulmonic valve is not well visualized. Doppler and Color Flow revealed trace pulmonic valvular re gurgitation. There is no pulmonic valvular stenosis. GREAT VESSELS The aortic root is normal in size. The ascending aorta is not well seen. The IVC was not visualized. PERICARDIAL EFFUSION There is no evidence of significant pericardial effusion. Critical Notification Critical Value: No <Conclusion> Technically very difficult study. Valves not well visualized. The left ventricular systolic function is normal. The Ejection Fraction is 55-60%. There is normal LV segmental wall motion. There is no evidence of significant pericardial effusion. Signed by : Sagar Limon, Electronically Approved : 08/18/2017 16:45:30
[2017-08-18] MEDS ORDERED: cefTRIAXone IV Push 1 GM VIAL. IVP SCH (18:00)
[2017-08-18 19:17] VITALS: BP 133/89
[2017-08-18] MEDS: ZOLPIDEM 5 MG TABLET. PO SCH (21:00)
[2017-08-18] MEDS: LACTOBACILLUS RHAMNOSUS GG 1 CAPSULE. PO SCH (21:01)
[2017-08-18 23:10] VITALS: BP 126/73
--- NOTE | 2017-08-19 00:42 | PN ---
DATE: 08/18/2017 SUBJECTIVE: The patient is a 57-year-old gentleman came in with probable mild congestive heart failure as well as acute bronchitis, possible pneumonitis. The patient's white count went down from 15,000 down to 9000, hemoglobin from 12, states that his sed rate 85 elevated. His C-reactive protein is 177, elevated rheumatoid factor. BUN and creatinine remain basically stable, slightly decreased on his albumin. BNP elevated at 300. OBJECTIVE: VITAL SIGNS: Blood pressure 130/70, respiratory rate 18, pulse 74, temperature 97.7. GENERAL: The patient is alert and oriented. LUNGS: Diminished coarse breath sounds, but basically clear than they were yesterday. CARDIOVASCULAR: Regular sinus rhythm. ABDOMEN: Soft, protuberant. EXTREMITIES: No clubbing, cyanosis. Trace edema. PLAN: The patient will have an echo. Cardiology consultation. Labs will be forwarded on to his life management teacher. In any case, the patient is resting fairly comfortably and we will get further testing as indicated. SANDRA NEGRETE MD DR: RAMONA/neetu JOB#: [id number] / [id number]
[2017-08-19] MEDS ORDERED: IPRATRPIUM/ALBUTEROL 0.5/2.5MG 3 ML NEBU. ONE (04:46)
[2017-08-19 05:18] VITALS: BP 126/77
[2017-08-19] MEDS: LEVOTHYROXINE 112 MCG TABLET PO SCH (05:48)
[2017-08-19] MEDS ORDERED: REGADENOSON 0.4 MG/5 ML DISP.SYRIN. IV ONE (08:30)
[2017-08-19] MEDS: DOCUSATE SODIUM 100 MG CAPSULE PO SCH (09:14)
[2017-08-19] MEDS: FUROSEMIDE 40 MG/4 ML VIAL IVP SCH (09:14)
[2017-08-19] MEDS: ENOXAPARIN 40 MG/0.4 ML DISP.SYRIN. SQ SCH (09:14)
[2017-08-19] MEDS: PANTOPRAZOLE 40 MG TABLET. PO SCH (09:15)
[2017-08-19] MEDS: MULTIVITAMIN with MINERAL TABLET. PO SCH (09:15)
[2017-08-19] MEDS: LACTOBACILLUS RHAMNOSUS GG 1 CAPSULE. PO SCH (09:15)
[2017-08-19] MEDS: DULoxetine HCL 60 MG CAPSULE.DR PO SCH (09:15)
[2017-08-19] MEDS: GABAPENTIN 300 MG CAPSULE. PO SCH ×2 (09:15→14:00)
[2017-08-19] MEDS: CHOLECALCIFEROL (VITAMIN D3) 1,000 UNIT TABLET PO SCH (09:15)
[2017-08-19] MEDS: MORPHINE ER 30 MG TABLET.ER PO SCH (09:15)
[2017-08-19] MEDS: PSEUDOEPHEDRINE ER 120 MG TABLET.ER. PO SCH (09:15)
[2017-08-19] MEDS: ATORVASTATIN CALCIUM 20 MG TABLET PO SCH (09:15)
[2017-08-19] MEDS: ASPIRIN 81 MG TAB.CHEW PO SCH (09:15)
[2017-08-19] MEDS: CETIRIZINE HCL 10 MG TABLET PO SCH (09:17)
[2017-08-19] MEDS: HYDROXYCHLOROQUINE 200 MG TABLET PO SCH (09:17)
--- NOTE | 2017-08-19 09:43 | PDOC ---
ALEXISCHEPE J ASSOCIATE DIRECTOR DATA [employer] ANALYTICS 08/19/17 0943: PROGRESS NOTES Diagnosis Problem Problems Medical Problems: (1) Acute bronchitis Status: Acute (2) Leukocytosis Status: Acute (3) Pulmonary fibrosis Status: Acute Assessment Problems Medical Problems: (1) Acute bronchitis Status: Acute (2) Leukocytosis Status: Acute (3) Pulmonary fibrosis Status: Acute 1. acute on chronic respiratory insufficiency - likely multifactorial acute bronchitis - per PCP pulmonary fibrosis - mgmt per PCP possible mild acute diastolic HF though this is less likely and he currently appears euvolemic - monitor I/Os and daily weights. avoid sodium in diet. repeat echo reveals continued normal LVEF. 2. abnormal EKG - non specific abnormalities with PVCs 3. inferolateral hypokinesis on prior echo - MPI pending. 4. elevated d dimer - CTA chest, venous duplex both negative. 5. hyperlipidemia - lipids well controlled. 6. family history of premature coronary disease 7. mild renal insufficiency - suggest decreased dose of lasix. Await MPI results. If negative, ok for DC from cardiology perspective with outpatient follow up. Suggest risk factor reduction to include current medical therapy and weight reduction. Thank you for the consultation. Feel free to call with any questions or concerns. Problems: Subjective no chest pain, dyspnea improved. swelling improved. no palpitations. Objective Vital Signs Date Time Temp Pulse Resp B/P (MAP) Pulse Ox O2 Delivery O2 Flow Rate FiO2 08/19/17 09:15 99 Nasal Cannula 3.0 08/19/17 05:18 97.9 86 18 126/77 (93) Intake and Output 08/19/17 07:00 Intake Total 1350 ml Output Total 1325 ml Balance 25 ml Intake Oral 1200 ml IV Total 150 ml Output Urine Total 1325 ml Abdomen: Normal bowel sounds, Soft Heart: Regular rate, Normal S1, Normal S2, No murmurs, Other (no gallops, clicks or rubs) Extremities: No cyanosis, Normal pulses, Other (trace edema) General: Alert, Oriented X3, Cooperative, No acute distress HEENT: Atraumatic, EOMI, Mucous membr. moist/pink Lungs: Other (few basilar crackles) Neuro: Normal speech, Strength at 5/5 X4 ext Psych/Mental Status: Mental status NL, Mood NL Review of Relevant I have reviewed the following items jamie (where applicable) has been applied. Labs Laboratory Tests Test 08/17/17 15:50 08/17/17 16:00 08/17/17 23:42 08/18/17 06:05 Influenza Type A (Rapid) Negative (NEGATIVE) Influenza Type B (Rapid) Negative (NEGATIVE) White Blood Count 15.8 x10^3/uL (4.0-11.0) 9.2 x10^3/uL (4.0-11.0) Red Blood Count 4.00 x10^6/uL (4.30-5.70) 3.92 x10^6/uL (4.30-5.70) Hemoglobin 12.4 g/dL (13.0-17.5) 12.3 g/dL (13.0-17.5) Hematocrit 36.6 % (39.0-53.0) 36.1 % (39.0-53.0) Mean Corpuscular Volume 91 fL (79-100) 92 fL (79-100) Mean Corpuscular Hemoglobin 31 pg (25-35) 31 pg (25-35) Mean Corpuscular Hemoglobin Concent 34 g/dL (31-37) 34 g/dL (31-37) Red Cell Distribution Width 13.3 % (11.5-14.5) 13.5 % (11.5-14.5) Platelet Count 215 x10^3/uL (140-400) 184 x10^3/uL (140-400) Neutrophils (%) (Auto) 89 % (31-73) 91 % (31-73) Lymphocytes (%) (Auto) 3 % (24-48) 7 % (24-48) Monocytes (%) (Auto) 8 % (0-9) 2 % (0-9) Eosinophils (%) (Auto) 0 % (0-3) 0 % (0-3) Basophils (%) (Auto) 0 % (0-3) 0 % (0-3) Neutrophils # (Auto) 14.0 x10^3uL (1.8-7.7) 8.3 x10^3uL (1.8-7.7) Lymphocytes # (Auto) 0.5 x10^3/uL (1.0-4.8) 0.6 x10^3/uL (1.0-4.8) Monocytes # (Auto) 1.3 x10^3/uL (0.0-1.1) 0.2 x10^3/uL (0.0-1.1) Eosinophils # (Auto) 0.0 x10^3/uL (0.0-0.7) 0.0 x10^3/uL (0.0-0.7) Basophils # (Auto) 0.0 x10^3/uL (0.0-0.2) 0.0 x10^3/uL (0.0-0.2) Segmented Neutrophils % 89 % (35-66) Band Neutrophils % 4 % (0-9) Lymphocytes % 2 % (24-48) Atypical Lymphocytes % (Manual) 1 % (0-0) Monocytes % 4 % (0-10) Platelet Estimate Adequate (ADEQUATE) Erythrocyte Sedimentation Rate 85 (0-15) Prothrombin Time 10.2 SEC (9.4-11.4) Prothromb Time International Ratio 1.0 (0.9-1.1) D-Dimer (Yu) 3.97 mg/L (0.00-0.50) Sodium Level 137 mmol/L (136-145) 137 mmol/L (136-145) Potassium Level 3.8 mmol/L (3.5-5.1) 3.6 mmol/L (3.5-5.1) Chloride Level 100 mmol/L (98-107) 99 mmol/L (98-107) Carbon Dioxide Level 26 mmol/L (21-32) 26 mmol/L (21-32) Anion Gap 11 (6-14) 12 (6-14) Blood Urea Nitrogen 17 mg/dL (8-26) 22 mg/dL (8-26) Creatinine 1.2 mg/dL (0.7-1.3) 1.4 mg/dL (0.7-1.3) Estimated GFR (Cockcroft-Gault) 62.0 51.9 BUN/Creatinine Ratio 14 (6-20) Glucose Level 102 mg/dL (70-99) 170 mg/dL (70-99) Lactic Acid Level 1.9 mmol/L (0.4-2.0) Calcium Level 9.0 mg/dL (8.5-10.1) 9.1 mg/dL (8.5-10.1) Magnesium Level 1.9 mg/dL (1.8-2.4) Total Bilirubin 0.5 mg/dL (0.2-1.0) Aspartate Amino Transf (AST/SGOT) 27 U/L (15-37) Alanine Aminotransferase (ALT/SGPT) 21 U/L (16-63) Alkaline Phosphatase 98 U/L (46-116) Creatine Kinase 66 U/L (39-308) Troponin I Quantitative < 0.017 ng/mL (0-0.055) < 0.017 ng/mL (0-0.055) C-Reactive Protein 177.0 mg/L (0-3.3) QX-Hkq-F-Type Natriuretic Peptide 335 pg/mL (0-124) Total Protein 7.7 g/dL (6.4-8.2) Albumin 3.2 g/dL (3.4-5.0) Albumin/Globulin Ratio 0.7 (1.0-1.7) Procalcitonin 0.23 ng/mL (0.00-0.10) Thyroid Stimulating Hormone (TSH) 2.479 uIU/mL (0.358-3.740) Rheumatoid Factor 18.6 IU/mL (0.0-13.9) Mycoplasma Serology (LAB) Negative (NEGATIVE) Triglycerides Level 64 mg/dL (0-150) Cholesterol Level 158 mg/dL (0-200) LDL Cholesterol, Calculated 69 mg/dL (0-100) VLDL Cholesterol, Calculated 12 mg/dL (0-40) Non-HDL Cholesterol Calculated 81 mg/dL (0-129) HDL Cholesterol 77 mg/dL (40-60) Cholesterol/HDL Ratio 2.0 Vitamin B12 Level 727 pg/mL (247-911) 25-Hydroxy Vitamin D Total 19.7 ng/mL (30-100) Microbiology 08/17/17 Blood Culture - Preliminary, Resulted NO GROWTH AFTER 1 DAY Medications Current Medications Albuterol/ Ipratropium (Duoneb) 3 ml 1X ONCE NEB Last administered on at 16:10; Start 08/17/17 at 15:45; Stop 08/17/17 at 15:50; Status DC Methylprednisolone Sodium Succinate (SOLU-Medrol 125MG VIAL) 125 mg 1X ONCE IV Last administered on 08/17/17at 16:20; Start 08/17/17 at 16:00; Stop 08/17/17 at 16:01; Status DC Sodium Chloride 500 ml @ 0 mls/hr 1X ONCE IV ; Start 08/17/17 at 17:30; Stop at 17:32; Status DC Furosemide (Lasix) 40 mg 1X ONCE IVP Last administered on 08/17/17at 18:08; Start 08/17/17 at 17:30; Stop 08/17/17 at 17:32; Status DC Methylprednisolone Sodium Succinate (SOLU-Medrol 125MG VIAL) 125 mg 1X ONCE IV ; Start 08/17/17 at 17:30; Stop 08/17/17 at 17:51; Status DC Ceftriaxone Sodium 1 gm/ Sodium Chloride 50 ml @ 100 mls/hr 1X ONCE IV ; Start 08/17/17 at 17:30; Stop 08/17/17 at 17:33; Status DC Ondansetron HCl (Zofran) 4 mg PRN Q4HRS PRN IV NAUSEA/VOMITING; Start 08/17/17 at 17:30; Stop 08/18/17 at 17:29; Status DC Albuterol/ Ipratropium (Duoneb) 3 ml RTQID NEB Last administered on 08/18/17at 16:13; Start 08/17/17 at 20:00; Stop 08/18/17 at 19:59; Status DC Furosemide (Lasix) 40 mg BID92 IVP Last administered on 08/19/17at 09:14; Start 08/18/17 at 09:00 Ceftriaxone Sodium (Rocephin) 1 gm STK-MED ONCE IVP ; Start 08/17/17 at 17:30; Stop 08/17/17 at 17:31; Status DC Ceftriaxone Sodium (Rocephin) 1 gm STK-MED ONCE IV ; Start 08/17/17 at 17:31; Stop 08/17/17 at 17:32; Status DC Ceftriaxone Sodium (Rocephin) 1 gm 1X ONCE IVP Last administered on 08/17/17at 18:08; Start 08/17/17 at 17:45; Stop 08/17/17 at 17:46; Status DC Aspirin (Children'S Aspirin) 324 mg 1X ONCE PO Last administered on 08/17/17at 19:54; Start 08/17/17 at 18:00; Stop 08/17/17 at 18:02; Status DC Aspirin (Children'S Aspirin) 81 mg DAILY PO Last administered on 08/19/17 09: 15; Start 08/18/17 at 09:00 Docusate Sodium (Colace) 100 mg DAILY PO Last administered on 08/19/17 09:14; Start 08/18/17 at 09:00 Duloxetine HCl (Cymbalta) 60 mg DAILY PO Last administered on 08/19/17 09:15; Start 08/18/17 at 09:00 Furosemide (Lasix) 40 mg DAILY PO Last administered on 08/18/17at 08:56; Start 08/18/17 at 09:00; Stop 08/18/17 at 12:52; Status DC Gabapentin (Neurontin) 300 mg TID PO Last administered on 08/19/17 09:15; Start 08/17/17 at 21:00 Guaifenesin (Mucinex Er) 600 mg BID PO Last administered on 08/19/17 09:15; Start 08/17/17 at 21:00 Hydroxychloroquine Sulfate (Plaquenil) 200 mg BID PO Last administered on 09:17; Start 08/17/17 at 21:00 Albuterol/ Ipratropium (Duoneb) 3 ml QID NEB ; Start 08/17/17 at 21:00; Stop at 21:00; Status DC Levothyroxine Sodium (Synthroid) 112 mcg DAILY06 PO Last administered on at 05:48; Start 08/18/17 at 06:00 Lorazepam (Ativan) 0.5 mg PRN TID PRN PO ANXIETY / AGITATION Last administered on 08/18/17at 21:01; Start 08/17/17 at 19:00 Morphine Sulfate (Ms Contin) 30 mg BID PO Last administered on 08/19/17 09:15 ; Start 08/17/17 at 21:00 Pantoprazole Sodium (Protonix) 40 mg DAILYAC PO Last administered on 08/19/17 09:15; Start 08/18/17 at 07:30 Vitamin D (Vitamin D3) 2,000 unit DAILY PO Last administered on 08/19/17at 09:15 ; Start 08/18/17 at 09:00 Cetirizine HCl (ZyrTEC) 5 mg DAILY PO Last administered on 08/19/17 09:17; Start 08/18/17 at 09:00 Multivitamins/ Calcium (Thera-M Plus) 1 tab DAILY PO Last administered on 09:15; Start 08/18/17 at 09:00 Atorvastatin Calcium (Lipitor) 80 mg DAILY PO Last administered on 08/19/17 09 :15; Start 08/18/17 at 09:00 Zolpidem Tartrate (Ambien) 10 mg QHS PO Last administered on 08/18/17at 21:00; Start 08/17/17 at 21:00 Enoxaparin Sodium (Lovenox) 40 mg Q12HR SQ Last administered on 08/19/17 09:14 ; Start 08/17/17 at 21:00 Ceftriaxone Sodium 1 gm/ Sodium Chloride 50 ml @ 100 mls/hr Q24H IV ; Start at 19:15; Stop 08/17/17 at 19:43; Status DC Levofloxacin/ Dextrose (Levaquin Per Pharmacy) 1 each PRN DAILY PRN MC SEE COMMENTS; Start 08/17/17 at 19:15 Ceftriaxone Sodium (Rocephin) 1 gm Q24H IVP Last administered on 08/18/17 18: 22; Start 08/18/17 at 18:00 Levofloxacin/ Dextrose 150 ml @ 150 mls/hr Q24H IV Last administered on 21:02; Start 08/17/17 at 20:00 Pseudoephedrine HCl (Sudafed 12-Hour) 120 mg BID PO Last administered on 09:15; Start 08/17/17 at 21:00 Iohexol (Omnipaque 300 Mg/ml) 50 ml 1X ONCE IV Last administered on 08/18/17 11:08; Start 08/18/17 at 11:00; Stop 08/18/17 at 11:01; Status DC Iohexol (Omnipaque 300 Mg/ml) 75 ml 1X ONCE IV Last administered on 08/18/17 11:08; Start 08/18/17 at 11:00; Stop 08/18/17 at 11:01; Status DC Perflutren Protein Type A Microsphe (Optison) 0.66 mg 1X ONCE IV Last administered on 08/18/17at 15:45; Start 08/18/17 at 15:45; Stop 08/18/17 at 15:46 ; Status DC Lactobacillus Rhamnosus (Culturelle) 1 cap BID PO Last administered on at 09:15; Start 08/18/17 at 21:00 Albuterol/ Ipratropium (Duoneb) 3 ml STK-MED ONCE .ROUTE ; Start 08/19/17 at 04: 46; Stop 08/19/17 at 04:47; Status DC Regadenoson (Lexiscan) 0.4 mg 1X ONCE IV Last administered on 08/19/17at 08:58 ; Start 08/19/17 at 08:30; Stop 08/19/17 at 08:31; Status DC Active Scripts Active Furosemide 40 Mg Tablet 1 Tab PO DAILY Duoneb 0.5-3(2.5) Mg/3 Ml (Albuterol/Ipratropium) 3 Ml Ampul.neb 3 Ml NEB QID Multi-Day Vitamins (Multivitamin) 1 Each Tablet 1 Tab PO DAILY Hydroxychloroquine Sulfate 200 Mg Tablet 1 Tab PO BID Lorazepam 0.5 Mg Tablet 1 Tab PO TID PRN Crestor (Rosuvastatin Calcium) 20 Mg Tablet 1 Tab PO DAILY Reported Gabapentin 300 Mg Capsule Ambien (Zolpidem Tartrate) 10 Mg Tablet 1 Tab PO QHS Mucinex (Guaifenesin) 600 Mg Tablet.er 1 Tab PO BID LAST DOSE GIVEN: DATE: TODAY TIME: AM NEXT DOSE DUE: DATE: TODAY TIME: PM Ms Contin (Morphine Sulfate) 30 Mg Tablet.er 1 Tab PO BID LAST DOSE GIVEN: DATE: TODAY TIME: AM NEXT DOSE DUE: DATE: TODAY TIME: PM Vitamin D (Cholecalciferol (Vitamin D3)) 2,000 Unit Capsule 1 Cap PO DAILY LAST DOSE GIVEN: DATE: TIME: NEXT DOSE DUE: DATE: TIME: Claritin-D 12 Hour Tablet (Loratadine/Pseudoephedrine) 1 Each Tab.er.12h 1 Each PO DAILY LAST DOSE GIVEN: DATE: TIME: NEXT DOSE DUE: DATE: TIME: Colace (Docusate Sodium) 100 Mg Capsule 100 Mg PO DAILY LAST DOSE GIVEN: DATE: TODAY TIME: AM NEXT DOSE DUE: DATE: TOMORROW TIME: AM Levothyroxine Sodium 112 Mcg Tablet 1 Tab PO DAILY LAST DOSE GIVEN: DATE: TODAY TIME: AM NEXT DOSE DUE: DATE: TOMORROW TIME: AM Protonix (Pantoprazole Sodium) 40 Mg Tablet.dr 1 Tab PO DAILY LAST DOSE GIVEN: DATE: TODAY TIME: AM NEXT DOSE DUE: DATE: TOMORROW TIME: AM Cymbalta (Duloxetine Hcl) 20 Mg Capsule.dr 3 Cap PO DAILY LAST DOSE GIVEN: DATE: TODAY TIME: AM NEXT DOSE DUE: DATE: TOMORROW TIME: AM Aspirin 81 Mg Tab.chew 1 Tab PO DAILY LAST DOSE GIVEN: DATE: TODAY TIME: AM NEXT DOSE DUE: DATE: TOMORROW TIME: AM Vitals/I & O Vital Sign - Last 24 Hours 08/18/17 08/18/17 08/18/17 08/18/17 09:37 10:54 14:57 16:13 Temp 97.5 97.8 Pulse 107 100 Resp 24 20 B/P (MAP) 118/79 (92) 142/83 (102) Pulse Ox 97 94 98 98 O2 Delivery Nasal Cannula Nasal Cannula Nasal Cannula Nasal Cannula O2 Flow Rate 3.5 3.0 3.0 3.5 08/18/17 08/18/17 08/18/17 08/18/17 19:17 19:55 21:01 22:00 Temp 97.8 Pulse 105 Resp 20 16 B/P (MAP) 133/89 (104) Pulse Ox 96 96 O2 Delivery Nasal Cannula Nasal Cannula Room Air Nasal Cannula O2 Flow Rate 3.0 3.0 3.0 3.5 08/18/17 08/19/17 08/19/17 08/19/17 23:10 01:05 05:18 09:15 Temp 97.9 Pulse 112 86 Resp 18 16 18 B/P (MAP) 126/73 (90) 126/77 (93) Pulse Ox 98 99 99 O2 Delivery Nasal Cannula Nasal Cannula Nasal Cannula Nasal Cannula O2 Flow Rate 3.0 3.0 3.0 3.0 Intake and Output 08/18/17 08/18/17 08/19/17 15:00 23:00 07:00 Intake Total 720 ml 480 ml 150 ml Output Total 500 ml 400 ml 425 ml Balance 220 ml 80 ml -275 ml JOSE GAY MD 08/20/17 8897: PROGRESS NOTES Review of Relevant Pt. seen and examined. Agree with above [employer] note. Late entry for 08/19/2017 57 y.o male with dysnea and abnormal stress test. (1) Plan for LHC/RHC and coronary angiography CHEPE ESPINOZA APRN Aug 19, 2017 09:43 JOSE GAY MD Aug 20, 2017 16:37
[2017-08-19] MEDS ORDERED: ONDANSETRON PF 4 MG/2 ML VIAL. IV PRN (10:00)
[2017-08-19 10:48] VITALS: BP 158/95
--- NOTE | 2017-08-19 12:18 | RAD ---
MR#: [id number] Date of Study: 08/18/2017 Ordering Physician: CHEPE ESPINOZA, Referring Physician: JAMESON BEDOLLA Tech: ELIJAH Fisher ARRT (R) (N) APPROVED REPORT Test Type: Pharmacological Stress Nurse/Tech: GARRETT Joe Test Indications: dyspnea Medications: See Electronic Medical Record Medical History: See Electronic Medical Record Resting ECG: ST Resting Heart Rate: 95 bpm Resting Blood Pressure: 151/77mmHg Pretest Chest Pain: None Nurse/Tech Notes SR, NO CP, NO EKG CHAGES Pharm. Details Pharmacologic stress testing was performed using 0.4mg per 5ml of regadenoson given intravenously ove r 7-10 seconds. Stress Symptoms No chest pain or symptoms. POST EXERCISE Reason for Termination: Infusion complete Target HR: No Max HR: 106 bpm 77% of Maximum Predicted HR: 136 bpm Exercise duration: 6 min:sec, Stage Max Blood Pressure: 131/81mmHg Blood Pressure response to exercise: Normal blood pressure response during stress. Chest Pain: No. Arrhythmia: No. ST Change: No. INTERPRETATION Stress EKG Conclusion: Baseline EKG showed sinus rhythm. No ischemic changes at peak stress. No arr hythmias. Imaging Protocol IMAGE PROTOCOL: Rest Tc-99m/stress Tc-99m 2 days Rest: Stress: Viability: Radiopharm.Tc99m [id number] Sestamibi Wgzm26bMr 38mCi Img Date 08/18/2017 08/19/2017 Inj-Img Eswb01qoc. 90min. Rest Admin Site:IV - Right HandAdministrator: ELIJAH Fisher ARRT (R)(N) Stress Admin Site: IV - Left AntecubitalAdministrator: ELIJAH Fisher ARRT (R)(N) STRESS DATA End Diast. Vol.146.0mlAv. Heart Rate98.0bpm LVEDV index BSA2.0mlCardiac Output0.1L/min End Syst. Vol.63.0mlCO Index BSA8.1L/min LVESV index BSA1.0mlMyocardial Szrv997.0g Eject. Tktycwmk91.0% Stress Rates Pk. Fill Rate3.62EDV/secLVtime Pk. Fill 176.88msec Pk. Empty Rate3.55ESV/secLVtime Pk. Eject82.82msec 1/3 Pk. Fill1.33EDV/sec Stress Scores Regional WT1.00Summed WT9.00 Regional WM0.00Summed WM8.00 LV Perfusion Scintigraphic images showed moderate reversible defect involving anteroapical wall consistent with is chemia. Also seen was transient ischemic dilation 1.45 in stress images suggestive of balanced ische rosemary. Wall Motion Normal left ventricular systolic function with ejection fraction calculated at 57%. LV Perf. Quant 17 Seg. SSS13.00 17 Seg. SRS1.00 17 Seg. SDS12.00 Stress Defect Extent (% LAD)31.90Rest Defect Extent (% LAD)6.30Rev. Defect Extent (% LAD)27.50 Stress Defect Extent (% LCX) 30.00Rest Defect Extent (% LCX)0.00Rev. Defect Extent (% LCX)23.80 Stress Defect Extent (% RCA)11.10Rest Defect Extent (% RCA)0.00Rev. Defect Extent (% RCA)11.10 Stress Defect Extent (% AIDA)28.90Rest Defect Extent (% AIDA)2.20Rev. Defect Extent (% AIDA)25.00 Conclusion 1. Regadenoson cardioisotope stress test showed moderate amount of anteroapical wall ischemia associa dagmar with transient ischemic dilation. 2. Normal left ventricular systolic function with ejection fraction calculated at 57%. 3. Consider cardiac catheterization for definitive evaluation. Signed by : Sagar Limon, Electronically Approved : 08/19/2017 12:17:37
--- NOTE | 2017-08-19 14:31 | NUR ---
Discharge Note: YOLANDA CONDE Discharge instructions and discharge home medications reviewed with JIN [facility] RN, and a copy given. All questions have been answered and understanding verbalized. The following instructions and handouts were given: MEDICATIONS, LABS, IMAGING, HISTORY, ACTIVITY, DIET, IV SITE, AND PLAN OF CARE. Discontinued lines and drains: PERIPHERAL IV LEFT INTACT FOR USE AT [facility]. Patient discharged to [facility] via EMS.
--- NOTE | 2017-08-20 02:41 | DS ---
DATE OF DISCHARGE: 08/19/2017 HOSPITAL COURSE: A 57-year-old gentleman with history of pulmonary fibrosis. The patient came in, he was in mild congestive heart failure. The patient had an echocardiogram that showed 55% ejection fraction, also had a stress test that was unremarkable; however, the patient did have a probable bronchitis, if not more. Because of the significant pulmonary fibrosis, it is hard to evaluate whether or not he had more going on; however, did bring up quite a bit of phlegm. Cultures are still pending on that at this time. The patient had positive D-dimer. DVTs were negative. Any case, the patient made good progress. His lungs cleared with IV antibiotic therapy, aggressive pulmonary toilet. He will be discharged to home. 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 His sed rate was elevated to 85 and his C-reactive protein was also elevated to 177. Procalcitonin was elevated to 0.23, which would give an indication that he did have a respiratory infection. It is noted his creatinine and his GFR was approximately 52. His rheumatoid factor was elevated at 18.6. Mycoplasma was negative. IMPRESSION: Therefore, acute congestive heart failure, pulmonary fibrosis, pneumonitis, acute bronchitis, acute respiratory infection, elevated sed rate and CRP consistent with history of rheumatoid arthritis. The patient is taking immunosuppressive drugs and needs to be monitored carefully for any signs of infection. Warned about going out in large crowds, whether maybe other types of infective etiology. Last blood pressure 140/80, respiratory 18, pulse 95, afebrile. Last weight 330 pounds, that should be about his baseline as he did receive IV Lasix with a good diuresis. DISCHARGE INSTRUCTIONS: See MRAD. Decreased activity. Monitor salt intake. Follow up with Pulmonology and Rheumatology. SANDRA NEGRETE MD DR: RAMONA/neetu JOB#: [id number] / [id number]
[2017-08-20] MEDS ORDERED: FUROSEMIDE 40 MG TABLET PO SCH (09:00)
== END 2017-08-19 14:33 | disposition short-term general hospital (02) | DRG 871 ==
LOC: ER 15:28 → 1 SOUTH 17:12
PROVIDERS: ADMIT Family Medicine; ATTEND Family Medicine
DX: A41.9 Sepsis, unspecified organism (principal); J18.9 Pneumonia, unspecified organism; I50.31 Acute diastolic (congestive) heart failure; E11.69 Type 2 diabetes mellitus with other specified complication; Z68.42 Body mass index [BMI] 45.0-49.9, adult; M05.40 Rheumatoid myopathy with rheumatoid arthritis of unspecified site; Z99.81 Dependence on supplemental oxygen; E66.01 Morbid (severe) obesity due to excess calories; J20.9 Acute bronchitis, unspecified; G47.30 Sleep apnea, unspecified; F32.9 Major depressive disorder, single episode, unspecified; M10.9 Gout, unspecified; M19.90 Unspecified osteoarthritis, unspecified site; E78.5 Hyperlipidemia, unspecified; E03.9 Hypothyroidism, unspecified; F51.01 Primary insomnia; G25.81 Restless legs syndrome; F41.9 Anxiety disorder, unspecified; K21.9 Gastro-esophageal reflux disease without esophagitis; I49.3 Ventricular premature depolarization; R79.1 Abnormal coagulation profile; Z87.891 Personal history of nicotine dependence; Z90.89 Acquired absence of other organs; Z79.899 Other long term (current) drug therapy; Z79.82 Long term (current) use of aspirin; Z91.19 Patient's noncompliance with other medical treatment and regimen; Z88.2 Allergy status to sulfonamides; Z88.5 Allergy status to narcotic agent; Z88.1 Allergy status to other antibiotic agents; Z88.6 Allergy status to analgesic agent; Z82.49 Family history of ischemic heart disease and other diseases of the circulatory system; R06.89 Other abnormalities of breathing
CPT/HCPCS: 36415; 71045; 71275; 78452; 80048; 80053; 80061; 82306; 82550; 82607; 83605; 83735; 83880; 84145; 84443; 84484; 85007; 85025; 85379; 85610; 85651; 86140; 86431; 86738; 87040; 87070; 87205; 87449; 87804; 93005; 93017; 93970; 94640; 96374; 96375; 96376; A9500; C8929; J0696; J1650; J1940; J1956; J2405; J2785; J2930; J7620; Q9956; Q9967

== ENCOUNTER → 2017-10-25 | Outpatient (CLI) | payer MEDICARE ==
[~2017-10-25] MED LIST changes: +GABA300C8; -IPRA3AMP NEB; +IPRA3AMP29 NEB; +ZOLP10TA PO
[2017-10-25 09:51] LABS: BASO % 1 % (0-3); EOS # 0.1 x10^3/uL (0.0-0.7); EOS % 2 % (0-3); HEMATOCRIT 40.2 % (39.0-53.0); HEMOGLOBIN 13.4 g/dL (13.0-17.5); LYMPH # 1.3 x10^3/uL (1.0-4.8); LYMPH % 14 % (24-48); MEAN CORPUSCULAR HEMOGLOBIN 31 pg (25-35); MEAN CORPUSCULAR HGB CONC 33 g/dL (31-37); MEAN CORPUSCULAR VOLUME 93 fL (79-100); MONO # 0.6 x10^3/uL (0.0-1.1); MONO % 7 % (0-9); NEUT # 6.9 x10^3uL (1.8-7.7); NEUT % 77 % (31-73); PLATELET COUNT 257 x10^3/uL (140-400); RED BLOOD COUNT 4.32 x10^6/uL (4.30-5.70); RED CELL DISTRIBUTION WIDTH 15.9 % (11.5-14.5)
[2017-10-25 10:00] LABS: ALBUMIN 3.6 g/dL (3.4-5.0); C REACTIVE PROTEIN 2.5 mg/L (0-3.3); CREATININE 1.1 mg/dL (0.7-1.3); GFR 68.5; POTASSIUM 3.9 mmol/L (3.5-5.1); TOTAL BILIRUBIN 0.5 mg/dL (0.2-1.0); TOTAL PROTEIN 7.2 g/dL (6.4-8.2)
[2017-10-25 10:55] LABS: SEDIMENTATION RATE 17 (0-15)
== END | disposition home or self-care (01) ==
LOC: LAB 09:08
PROVIDERS: ATTEND Internal Medicine
DX: M05.741 Rheumatoid arthritis with rheumatoid factor of right hand without organ or systems involvement (principal); M05.742 Rheumatoid arthritis with rheumatoid factor of left hand without organ or systems involvement; E11.9 Type 2 diabetes mellitus without complications; E78.5 Hyperlipidemia, unspecified; J44.9 Chronic obstructive pulmonary disease, unspecified; E03.9 Hypothyroidism, unspecified
CPT/HCPCS: 36415; 80053; 85025; 85651; 86140

== ENCOUNTER 2017-12-19 17:36 | Inpatient (IN) | payer MEDICARE ==
[~2017-12-19] VITALS: Ht 180.3 cm; Wt 148.4 kg
[2017-12-19 18:10] VITALS: BP 126/76
[2017-12-19 18:45] LABS: BASO % 0 % (0-3); EOS # 0.1 x10^3/uL (0.0-0.7); EOS % 2 % (0-3); HEMATOCRIT 37.4 % (39.0-53.0); HEMOGLOBIN 12.8 g/dL (13.0-17.5); LYMPH # 1.3 x10^3/uL (1.0-4.8); LYMPH % 34 % (24-48); MEAN CORPUSCULAR HEMOGLOBIN 30 pg (25-35); MEAN CORPUSCULAR HGB CONC 34 g/dL (31-37); MEAN CORPUSCULAR VOLUME 89 fL (79-100); MONO # 1.5 x10^3/uL (0.0-1.1); MONO % 39 % (0-9); NEUT # 0.9 x10^3uL (1.8-7.7); NEUT % 24 % (31-73); PLATELET COUNT 355 x10^3/uL (140-400); RED BLOOD COUNT 4.22 x10^6/uL (4.30-5.70); RED CELL DISTRIBUTION WIDTH 14.4 % (11.5-14.5); WHITE BLOOD COUNT 3.9 x10^3/uL (4.0-11.0)
[2017-12-19] MEDS ORDERED: LORazepam 0.5 MG TABLET PO PRN (18:45)
[2017-12-19 18:47] LABS: ALBUMIN 2.6 g/dL (3.4-5.0); ALBUMIN/GLOBULIN RATIO 0.5 (1.0-1.7); CALCIUM 8.9 mg/dL (8.5-10.1); CREATININE 1.4 mg/dL (0.7-1.3); GFR 51.9; POTASSIUM 4.2 mmol/L (3.5-5.1); TOTAL BILIRUBIN 0.5 mg/dL (0.2-1.0); TOTAL PROTEIN 7.5 g/dL (6.4-8.2)
[2017-12-19 19:00] VITALS: BP 119/68
[2017-12-19] MEDS: VANCOMYCIN PER PHARMACY MC PRN (19:22)
[2017-12-19] MEDS ORDERED: ALBUTEROL SULFATE 2.5 MG/3 ML NEBU. NEB SCH (20:00)
[2017-12-19 20:07] LABS: % BANDS 5 % (0-9); % LYMPHS 38 % (24-48); % METAS 2 % (0-0); % MONOS 38 % (0-10); % SEGS 9 % (35-66)
[2017-12-19 20:08] LABS: TOXIC GRANULATION PRESENT
[2017-12-19] MEDS: ZOLPIDEM 5 MG TABLET. PO SCH ×2 (20:20→21:00)
[2017-12-19] MEDS: MORPHINE ER 30 MG TABLET.ER PO SCH ×2 (20:20→21:00)
[2017-12-19] MEDS: guaiFENesin/PS-EPHED 600/60MG 1 TAB TAB.ER.12H PO SCH ×2 (20:20→21:00)
[2017-12-19] MEDS: HYDROXYCHLOROQUINE 200 MG TABLET PO SCH ×2 (20:20→21:00)
[2017-12-19] MEDS: VANCOMYCIN 2 GM in IV NORMAL SALINE 500ML 500 ML IV SCH (20:28)
[2017-12-19 20:30] VITALS: BP 94/66
[2017-12-19] MEDS: IPRATRPIUM/ALBUTEROL 0.5/2.5MG 3 ML NEBU. NEB SCH (20:34)
[2017-12-19] MEDS: BUDESONIDE 0.5 MG/2 ML NEBU NEB SCH (20:34)
[2017-12-19 22:30] VITALS: BP 119/84
[2017-12-19 23:00] VITALS: BP 121/91
[2017-12-20] VITALS (10 sets, daily range): BP systolic 106–149; BP diastolic 66–117
[2017-12-20] MEDS: IPRATRPIUM/ALBUTEROL 0.5/2.5MG 3 ML NEBU. NEB SCH ×4 (04:18→20:03)
[2017-12-20] MEDS: LEVOTHYROXINE 112 MCG TABLET PO SCH (06:16)
[2017-12-20 06:43] LABS: BASO % 0 % (0-3); EOS # 0.2 x10^3/uL (0.0-0.7); EOS % 5 % (0-3); HEMATOCRIT 34.7 % (39.0-53.0); HEMOGLOBIN 11.7 g/dL (13.0-17.5); LYMPH # 1.9 x10^3/uL (1.0-4.8); LYMPH % 35 % (24-48); MEAN CORPUSCULAR HEMOGLOBIN 30 pg (25-35); MEAN CORPUSCULAR HGB CONC 34 g/dL (31-37); MEAN CORPUSCULAR VOLUME 90 fL (79-100); MONO # 1.7 x10^3/uL (0.0-1.1); MONO % 31 % (0-9); NEUT # 1.6 x10^3uL (1.8-7.7); NEUT % 29 % (31-73); PLATELET COUNT 284 x10^3/uL (140-400); RED BLOOD COUNT 3.87 x10^6/uL (4.30-5.70); RED CELL DISTRIBUTION WIDTH 14.3 % (11.5-14.5); WHITE BLOOD COUNT 5.4 x10^3/uL (4.0-11.0)
[2017-12-20 06:58] LABS: C REACTIVE PROTEIN 160.9 mg/L (0-3.3); CREATININE 1.3 mg/dL (0.7-1.3); GFR 56.5; POTASSIUM 3.3 mmol/L (3.5-5.1)
[2017-12-20] MEDS: VANCOMYCIN 2 GM in IV NORMAL SALINE 500ML 500 ML IV SCH ×2 (08:18→20:49)
[2017-12-20] MEDS: MORPHINE ER 30 MG TABLET.ER PO SCH ×2 (08:19→20:51)
[2017-12-20] MEDS: FUROSEMIDE 40 MG TABLET PO SCH ×2 (08:19→09:00)
[2017-12-20] MEDS: DULoxetine HCL 60 MG CAPSULE.DR PO SCH (08:19)
[2017-12-20] MEDS: MULTIVITAMIN with MINERAL TABLET. PO SCH (08:19)
[2017-12-20] MEDS: ATORVASTATIN CALCIUM 20 MG TABLET PO SCH ×2 (08:19→09:00)
[2017-12-20] MEDS: PANTOPRAZOLE 40 MG TABLET. PO SCH (08:19)
[2017-12-20] MEDS: ASPIRIN 81 MG TAB.CHEW PO SCH (08:20)
[2017-12-20] MEDS: CHOLECALCIFEROL (VITAMIN D3) 1,000 UNIT TABLET PO SCH (08:20)
[2017-12-20] MEDS: HYDROXYCHLOROQUINE 200 MG TABLET PO SCH ×2 (08:21→20:52)
[2017-12-20] MEDS: guaiFENesin/PS-EPHED 600/60MG 1 TAB TAB.ER.12H PO SCH ×2 (08:21→20:50)
[2017-12-20] MEDS ORDERED: DOCUSATE SODIUM 100 MG CAPSULE PO SCH (09:00)
[2017-12-20] MEDS ORDERED: DOCUSATE SODIUM 100 MG CAPSULE PO PRN (10:30)
[2017-12-20] MEDS ORDERED: POTASSIUM CHLORIDE 20 MEQ TABLET.ER. PO ONE (10:30)
[2017-12-20] MEDS: BUDESONIDE 0.5 MG/2 ML NEBU NEB SCH ×2 (11:42→20:03)
--- NOTE | 2017-12-20 16:00 | RAD ---
Ventilation/perfusion lung scan, 12/20/2017: HISTORY: Elevated d-dimer, shortness of breath The ventilation study was performed utilizing 8.5 mCi of xenon-133. Activity in the lungs is moderately heterogeneous, at least partially related to the patient's size. There is delayed washout of the xenon from the right lung compared to the left. Perfusion imaging was performed utilizing 5.5 mCi of technetium 99m MAA. A similar pattern of activity is present in the lungs. No definite unmatched perfusion defects are seen. IMPRESSION: The probability of pulmonary emboli is considered to be low. Electronically signed by: Gavin Hanley MD (12/20/2017 3:57 PM) [facility]
[2017-12-20] MEDS ORDERED: ELECTROLYTE (NON-ICU) PROTOCOL MC PRN (18:15)
[2017-12-20] MEDS: LACTOBACILLUS RHAMNOSUS GG 1 CAPSULE. PO SCH (20:50)
[2017-12-20] MEDS: ZOLPIDEM 5 MG TABLET. PO SCH (20:51)
[2017-12-20] MEDS ORDERED: ATORVASTATIN CALCIUM 20 MG TABLET PO SCH (21:00)
[2017-12-21 00:05] VITALS: BP 122/64
[2017-12-21 04:23] VITALS: BP 140/59
[2017-12-21] MEDS: IPRATRPIUM/ALBUTEROL 0.5/2.5MG 3 ML NEBU. NEB SCH ×2 (05:37→10:40)
[2017-12-21] MEDS: LEVOTHYROXINE 112 MCG TABLET PO SCH (06:00)
[2017-12-21] MEDS: BUDESONIDE 0.5 MG/2 ML NEBU NEB SCH (08:00)
[2017-12-21 08:03] VITALS: BP 131/73
[2017-12-21] MEDS: DULoxetine HCL 60 MG CAPSULE.DR PO SCH (08:50)
[2017-12-21] MEDS: PANTOPRAZOLE 40 MG TABLET. PO SCH (08:50)
[2017-12-21] MEDS: CHOLECALCIFEROL (VITAMIN D3) 1,000 UNIT TABLET PO SCH (08:50)
[2017-12-21] MEDS: guaiFENesin/PS-EPHED 600/60MG 1 TAB TAB.ER.12H PO SCH (08:50)
[2017-12-21] MEDS: LACTOBACILLUS RHAMNOSUS GG 1 CAPSULE. PO SCH (08:50)
[2017-12-21] MEDS: ASPIRIN 81 MG TAB.CHEW PO SCH (08:50)
[2017-12-21] MEDS: MORPHINE ER 30 MG TABLET.ER PO SCH (08:50)
[2017-12-21] MEDS: VANCOMYCIN 2 GM in IV NORMAL SALINE 500ML 500 ML IV SCH (08:50)
[2017-12-21] MEDS: HYDROXYCHLOROQUINE 200 MG TABLET PO SCH (08:50)
[2017-12-21] MEDS: MULTIVITAMIN with MINERAL TABLET. PO SCH (08:50)
[2017-12-21 08:51] LABS: BASO # 0.1 x10^3/uL (0.0-0.2); BASO % 1 % (0-3); EOS # 0.6 x10^3/uL (0.0-0.7); EOS % 10 % (0-3); HEMATOCRIT 34.4 % (39.0-53.0); HEMOGLOBIN 11.6 g/dL (13.0-17.5); LYMPH # 1.4 x10^3/uL (1.0-4.8); LYMPH % 22 % (24-48); MEAN CORPUSCULAR HEMOGLOBIN 30 pg (25-35); MEAN CORPUSCULAR HGB CONC 34 g/dL (31-37); MEAN CORPUSCULAR VOLUME 90 fL (79-100); MONO # 1.2 x10^3/uL (0.0-1.1); MONO % 18 % (0-9); NEUT # 3.3 x10^3uL (1.8-7.7); NEUT % 50 % (31-73); PLATELET COUNT 328 x10^3/uL (140-400); RED BLOOD COUNT 3.83 x10^6/uL (4.30-5.70); RED CELL DISTRIBUTION WIDTH 14.6 % (11.5-14.5); WHITE BLOOD COUNT 6.7 x10^3/uL (4.0-11.0)
[2017-12-21 08:52] LABS: VANC TR 29.9 mcg/mL (10.0-20.0)
[2017-12-21] MEDS ORDERED: methylPREDNISolone SOD SUCC PF 40 MG/ML VIAL. IV SCH (09:00)
[2017-12-21 09:04] LABS: ALBUMIN 2.4 g/dL (3.4-5.0); ALBUMIN/GLOBULIN RATIO 0.6 (1.0-1.7); CALCIUM 8.6 mg/dL (8.5-10.1); CREATININE 1.3 mg/dL (0.7-1.3); GFR 56.5; MAGNESIUM 1.7 mg/dL (1.8-2.4); POTASSIUM 4.1 mmol/L (3.5-5.1); TOTAL BILIRUBIN 0.3 mg/dL (0.2-1.0); TOTAL PROTEIN 6.1 g/dL (6.4-8.2)
--- NOTE | 2017-12-21 09:53 | PN ---
DATE: 12/20/2017 SUBJECTIVE: The patient came in with acute respiratory failure. He says he is feeling somewhat better. The patient's oxygenation is better than it was when he first came in. He has been on BiPAP and CPAP as well. Initially, his blood pressure had been down as low as 94/66, pulse upwards of 98 and 100, and temperature 99.7, has come down gradually. The patient on 3 liters has come up dramatically with aggressive pulmonary toilet and the like. He continues to receive IV antibiotic therapy. Sputum sent for culture. OBJECTIVE: VITAL SIGNS: Otherwise, blood pressure 145/89, respiratory rate 20. GENERAL: The patient is alert and oriented. Speech is fluent and spontaneous, and seems to be feeling better. LUNGS: Diminished throughout, poor movement of air. CARDIOVASCULAR: Regular sinus rhythm. ABDOMEN: Soft, nontender, no rebounding and no guarding. EXTREMITIES: No clubbing or cyanosis. Trace edema noted. NEUROLOGIC: Alert and oriented x3. LABORATORY DATA: Basically stable, does show an increase in monocytes. Sed rate is greater than 120, may be from his RA. A V/Q scan is negative. Potassium is low at 3.3. C-reactive protein is elevated at 160.9. DICTATION ENDS HERE SANDRA NEGRETE MD DR: RAMONA/neetu JOB#: [id number] / [id number]
[2017-12-21] MEDS: VANCOMYCIN PER PHARMACY MC PRN (10:01)
[2017-12-21 10:35] VITALS: BP 141/74
--- NOTE | 2017-12-21 10:55 | RAD ---
Chest, 2 views, 12/21/2017: HISTORY: Shortness of breath, pulmonary fibrosis Comparison is made to a portable exam from 08/17/2017 as well as older PA and lateral views from 03/23/2017. A right PICC is in place extending into the superior vena cava. The heart is within normal limits in size. Prominent pulmonary markings throughout the right lung and in the left lower chest appear unchanged. CT studies have demonstrated considerable fibrosis and bronchiectasis. No definite superimposed acute infiltrate is seen, although that possibility would be better evaluated with CT scanning. There is no evidence of pleural fluid. Moderate hypertrophic spurring is present in the spine. IMPRESSION: 1. Extensive pulmonary fibrosis, worse on the right. 2. No definite change since 08/17/2017. 3. Satisfactory right PICC position. Electronically signed by: Gavin Hanley MD (12/21/2017 10:52 AM) [facility]
[2017-12-21] MEDS ORDERED: VANC1.5P33 IV (13:12)
[2017-12-21] MEDS ORDERED: LORA0.5T PO (13:12)
[2017-12-21] MEDS ORDERED: HYDR-965 PO (13:12)
[2017-12-21] MEDS ORDERED: BUDE0.5A11 NEB (13:12)
[2017-12-21] MEDS ORDERED: MORP30TA83 PO (13:12)
[2017-12-21] MEDS ORDERED: LEVO112T4 PO (13:12)
[2017-12-21] MEDS ORDERED: PRED5TAB PO (13:12)
[2017-12-21] MEDS ORDERED: ZOLP10TA PO (13:12)
[2017-12-21] MEDS ORDERED: VANCOMYCIN 1.5 GM in IV NORMAL SALINE 500ML 500 ML IV SCH (21:00)
[2017-12-22 16:29] LABS: PLT ESTIMATE INCREASED (ADEQUATE)
== END 2017-12-21 14:45 | disposition home health service (06) | DRG 871 ==
LOC: 1 SOUTH 17:36 → ICU 18:16
PROVIDERS: ADMIT Family Medicine; ATTEND Family Medicine
PROC: 5A09357 Assistance with Respiratory Ventilation, Less than 24 Consecutive Hours, Continuous Positive Airway Pressure (ICD-10-PCS; principal; 2017-12-20)
DX: A41.89 Other specified sepsis (principal); J96.01 Acute respiratory failure with hypoxia; J15.8 Pneumonia due to other specified bacteria; M05.49 Rheumatoid myopathy with rheumatoid arthritis of multiple sites; Z68.42 Body mass index [BMI] 45.0-49.9, adult; E66.01 Morbid (severe) obesity due to excess calories; G47.30 Sleep apnea, unspecified; M10.9 Gout, unspecified; M19.90 Unspecified osteoarthritis, unspecified site; J84.17 Other interstitial pulmonary diseases with fibrosis in diseases classified elsewhere; E78.5 Hyperlipidemia, unspecified; F32.9 Major depressive disorder, single episode, unspecified; M06.9 Rheumatoid arthritis, unspecified; G89.29 Other chronic pain; Z87.01 Personal history of pneumonia (recurrent); Z79.899 Other long term (current) drug therapy
CPT/HCPCS: 36415; 71046; 78582; 80048; 80053; 80202; 83605; 83735; 83880; 85007; 85025; 85379; 85651; 86140; 86738; 87040; 87070; 87205; 87449; 87641; 94640; 96374; A9540; A9558; J1956; J2920; J3370; J7040; J7620; J7626

== ENCOUNTER 2018-03-26 11:06 | Inpatient (IN) | payer MEDICARE ==
[~2018-03-26] VITALS: Ht 180.3 cm; Wt 152.4 kg
[~2018-03-26 11:06] MED LIST changes: +BUDE0.5A11 NEB; -GABA300C8; +GABA300C8 PO; -HYDR-2766 PO; +HYDR-2769 PO; +HYDR-3166 PO; +VANC1.5P33 IV
[2018-03-26] MEDS ORDERED: HYDROcodone/APAP 7.5/325MG 1 TAB TABLET PO PRN (12:00)
[2018-03-26] MEDS ORDERED: LORazepam 0.5 MG TABLET PO PRN (12:30)
[2018-03-26 13:56] VITALS: BP 113/76
[2018-03-26] MEDS ORDERED: LORazepam 0.5 MG TABLET PO SCH (14:00)
[2018-03-26] MEDS: IV NORMAL SALINE 1,000ML 1,000 ML IV SCH (14:23)
[2018-03-26 14:34] LABS: BASO % 1 % (0-3); EOS # 0.1 x10^3/uL (0.0-0.7); EOS % 3 % (0-3); HEMATOCRIT 31.8 % (39.0-53.0); HEMOGLOBIN 10.9 g/dL (13.0-17.5); LYMPH # 0.5 x10^3/uL (1.0-4.8); LYMPH % 13 % (24-48); MEAN CORPUSCULAR HEMOGLOBIN 30 pg (25-35); MEAN CORPUSCULAR HGB CONC 34 g/dL (31-37); MEAN CORPUSCULAR VOLUME 87 fL (79-100); MONO # 0.9 x10^3/uL (0.0-1.1); MONO % 28 % (0-9); NEUT # 1.9 x10^3uL (1.8-7.7); NEUT % 56 % (31-73); PLATELET COUNT 201 x10^3/uL (140-400); RED BLOOD COUNT 3.66 x10^6/uL (4.30-5.70); RED CELL DISTRIBUTION WIDTH 16.9 % (11.5-14.5); WHITE BLOOD COUNT 3.4 x10^3/uL (4.0-11.0)
[2018-03-26 14:40] LABS: ALBUMIN 2.3 g/dL (3.4-5.0); ALBUMIN/GLOBULIN RATIO 0.5 (1.0-1.7); CALCIUM 8.6 mg/dL (8.5-10.1); CREATININE 1.5 mg/dL (0.7-1.3); GFR 47.7; POTASSIUM 3.7 mmol/L (3.5-5.1); TOTAL BILIRUBIN 0.8 mg/dL (0.2-1.0); TOTAL PROTEIN 7.1 g/dL (6.4-8.2)
[2018-03-26 14:47] LABS: FECAL OB PT POSITIVE (NEG)
[2018-03-26] MEDS: metroNIDAZOLE 500 MG TABLET PO SCH ×2 (15:59→21:28)
[2018-03-26 20:00] VITALS: BP 106/72
[2018-03-26] MEDS: BUDESONIDE 0.5 MG/2 ML NEBU NEB SCH (20:00)
[2018-03-26] MEDS ORDERED: NON FORMULARY ITEM (Budesonide 0.5 MG) NEB SCH (20:00)
[2018-03-26] MEDS ORDERED: VANCOMYCIN IV SCH (21:00)
[2018-03-26] MEDS ORDERED: SOD CHLORIDE IV SCH (21:00)
[2018-03-26] MEDS ORDERED: [UNRECOGNIZED DRUG - OTHER] IV SCH (21:00)
[2018-03-26] MEDS: HYDROXYCHLOROQUINE 200 MG TABLET PO SCH (21:24)
[2018-03-26] MEDS: MORPHINE ER 30 MG TABLET.ER PO SCH (21:25)
[2018-03-26] MEDS: ZOLPIDEM 5 MG TABLET. PO SCH (21:25)
[2018-03-26] MEDS: ENOXAPARIN 40 MG/0.4 ML SYRINGE. SQ SCH (21:26)
[2018-03-26] MEDS: LOPERAMIDE 2 MG CAPSULE PO PRN (22:27)
[2018-03-26 22:40] LABS: % BANDS 17 % (0-9); % BASOS 2 % (0-3); % EOS 2 % (0-5); % LYMPHS 22 % (24-48); % MONOS 25 % (0-10); % SEGS 28 % (35-66); PLT ESTIMATE ADEQUATE (ADEQUATE); TOXIC GRANULATION PRESENT; TOXIC VACUOLATION PRESENT
[2018-03-26 22:43] LABS: % ATYL 4 % (0-0)
[2018-03-26 23:30] VITALS: BP 92/62
[2018-03-27] VITALS (21 sets, daily range): BP systolic 74–141; BP diastolic 43–91
[2018-03-27] MEDS: IV NORMAL SALINE 1,000ML 1,000 ML IV SCH ×7 (03:08→23:53)
[2018-03-27] MEDS ORDERED: ADENOSINE 6 MG/2 ML VIAL IV ONE ×2 (04:51→06:03)
[2018-03-27] MEDS ORDERED: DIGOXIN IV 500 MCG/2 ML AMPUL. ONE (05:06)
[2018-03-27 05:34] LABS: BASO % 1 % (0-3); EOS # 0.2 x10^3/uL (0.0-0.7); EOS % 5 % (0-3); HEMATOCRIT 31.4 % (39.0-53.0); HEMOGLOBIN 10.5 g/dL (13.0-17.5); LYMPH # 0.8 x10^3/uL (1.0-4.8); LYMPH % 21 % (24-48); MEAN CORPUSCULAR HEMOGLOBIN 30 pg (25-35); MEAN CORPUSCULAR HGB CONC 33 g/dL (31-37); MEAN CORPUSCULAR VOLUME 90 fL (79-100); MONO # 0.9 x10^3/uL (0.0-1.1); MONO % 25 % (0-9); NEUT # 1.7 x10^3uL (1.8-7.7); NEUT % 48 % (31-73); PLATELET COUNT 210 x10^3/uL (140-400); RED BLOOD COUNT 3.51 x10^6/uL (4.30-5.70); RED CELL DISTRIBUTION WIDTH 16.4 % (11.5-14.5); WHITE BLOOD COUNT 3.6 x10^3/uL (4.0-11.0)
[2018-03-27] MEDS ORDERED: DIGOXIN IV 500 MCG/2 ML AMPUL. IV ONE (05:45)
[2018-03-27 05:49] LABS: ALBUMIN 2.2 g/dL (3.4-5.0); ALBUMIN/GLOBULIN RATIO 0.6 (1.0-1.7); CALCIUM 7.9 mg/dL (8.5-10.1); CREATININE 1.6 mg/dL (0.7-1.3); GFR 44.3; POTASSIUM 3.8 mmol/L (3.5-5.1); TOTAL BILIRUBIN 0.5 mg/dL (0.2-1.0); TOTAL PROTEIN 5.8 g/dL (6.4-8.2)
--- NOTE | 2018-03-27 06:27 | EKG ---
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
--- NOTE | 2018-03-27 06:28 | EKG ---
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
[2018-03-27] MEDS ORDERED: MAGNESIUM SULFATE 1GM 100 ML IV ONE (07:15)
[2018-03-27] MEDS ORDERED: IOHEXOL 300 MG/ML 75 ML VIAL. IV ONE (07:30)
[2018-03-27] MEDS ORDERED: PANTOPRAZOLE 40 MG TABLET. PO SCH (07:30)
[2018-03-27] MEDS ORDERED: IOHEXOL 300 MG/ML 50 ML VIAL. IV ONE (07:30)
[2018-03-27] MEDS ORDERED: IOHEXOL 240 MG/ML 50ML VIAL. PO ONE (07:30)
--- NOTE | 2018-03-27 07:41 | RAD ---
Portable chest, 03/27/2018: HISTORY: Chest pain, elevated d-dimer Comparison is made to a study from 12/22/2017. The heart is within normal limits in size. There are ongoing moderate, predominantly interstitial opacities in both lungs which are unchanged. Previous imaging has demonstrated considerable fibrosis and bronchiectasis. No new pulmonary abnormality is seen. There is no evidence of pleural fluid. IMPRESSION: Unchanged extensive bilateral predominately interstitial opacities compatible with known fibrosis and bronchiectasis. A component of chronic pneumonitis cannot be excluded. Electronically signed by: Gavin Hanley MD (03/27/2018 7:37 AM) [facility]
[2018-03-27] MEDS ORDERED: ACETAMINOPHEN 325 MG TABLET PO ONE (07:58)
[2018-03-27] MEDS: metroNIDAZOLE 500 MG TABLET PO SCH ×3 (08:08→21:09)
[2018-03-27] MEDS: LEVOTHYROXINE 112 MCG TABLET PO SCH (08:08)
[2018-03-27] MEDS: MORPHINE ER 30 MG TABLET.ER PO SCH ×2 (08:10→21:09)
[2018-03-27] MEDS ORDERED: ACETAMINOPHEN 325 MG TABLET PO PRN (08:15)
--- NOTE | 2018-03-27 08:30 | HP ---
ADMIT DATE: 03/26/2018 HISTORY OF PRESENT ILLNESS: A 58-year-old gentleman with history of seropositive rheumatoid arthritis as well as interstitial lung disease. Over the past week or so, the patient has been having problems with severe diarrhea, has multiple stools up to 10 a day with some abdominal discomfort. The patient has also had a cough and the patient was finally brought in, just general weakness, dehydration, and severe diarrhea with abdominal pain, obviously he has multiple medical issues that also require him to be on the facility. PAST MEDICAL HISTORY: Interstitial lung disease, rheumatoid arthritis, seropositive; morbid obesity. He had previous lap band, obstructive sleep apnea, gout, generalized anxiety, vertigo, GERD, history of sudden cardiac , seasonal allergies, hyperlipidemia. He has RA - ILD, chronic pain, continuous oxygen sleep apnea and BiPAP, chronic lower back pain, hypothyroidism, synovitis. He has been on multiple immunosuppressive drugs, probable pulmonary hypertension. MEDICATIONS: Include hydroxychloroquine sulfate 200 mg, Crestor 20 mg, aspirin 81, hydrocodone 7.5/325 p.r.n., MS Contin 30 mg b.i.d., gabapentin 300 mg, Cymbalta, lorazepam 0.5 p.r.n. for anxiety, Ambien 10 mg at bedtime, budesonide for nebulizer b.i.d., guaifenesin, Protonix 40 mg a day, prednisone 40 mg a day, levothyroxine 112 mcg, vitamin D3 2000 units, multivitamin. ALLERGIES: SULFUR, SULFONAMIDE, ANTIBIOTICS, AZITHROMYCIN AND OXYCODONE. The patient is a full code. PAST SURGICAL HISTORY: Right ankle fracture, tonsillectomy, gastric bypass, arthroscopic exam of the left knee, cortisone injections. FAMILY HISTORY: Maternal with osteoarthritis. Maternal also psoriasis. SOCIAL HISTORY: The patient was a former smoker. Denies alcohol. Used to smoke cigars, quit several years ago. REVIEW OF SYSTEMS: GENERAL: The patient is not feeling very well. Feels weak, tired. Mild cough, shortness of breath. Has some palpitations. Does have abdominal pain primarily in the left, mid lower quadrant area. Multiple watery explosive stools up to 10 a day. MUSCULOSKELETAL: Chronic achiness pain in joints secondary to seropositive RA. NEUROLOGICAL: Intact. No focal weakness. PHYSICAL EXAMINATION: GENERAL: Pleasant white male, moderate amount of distress. VITAL SIGNS: Initial blood pressure 113/76, respiratory rate 22, pulse 92, afebrile on admission, although did drop to 99.8, pulse went up to 180, respiratory rate went up to 32. Weight 321 pounds. HEENT: Otherwise, the patient's head is atraumatic, normocephalic. Eyes: PERRLA without jaundice. Mouth and throat: Dry mucous membranes. NECK: Supple without JVD, carotid bruits, or thyromegaly. LUNGS: Multiple rhonchi noted throughout. Occasional expiratory wheezes. CARDIOVASCULAR: One time regular sinus rhythm, S1, S2, without murmur, rub, thrill, or extra heart sound. ABDOMEN: Protuberant, soft, but definite tenderness in the left mid, left lower quadrant areas. EXTREMITIES: Without clubbing, cyanosis, or edema. Some hyperpigmentation noted in the pretibial areas. NEUROLOGIC: The patient is alert and oriented x 3. Speech fluent, spontaneous, appropriate. Cranial nerves 2-12 are intact. LABORATORY DATA: The patient's stool Hemoccult positive. White count 3.4, hemoglobin 10.9 and 31. Did have elevated bands (NC). Elevated D-dimer. CTA being scheduled. He has had these before, but we will repeat as well as a CT angiogram of the abdomen and pelvis. BNP elevated to 119. Lactic acid 2.7 (NC). Creatinine elevated at 1.5 with a decrease in the GFR of 47. Sodium low at 127. Albumin 2.3. UA still pending. C. difficile toxin B gene positive. The patient started on Flagyl orally. X-ray still pending. CTA pending of the abdomen and pelvis, angiogram. Other labs pending. Apparently, the patient approximately 11:00 dropped blood pressure down to 92/62 (NC), temperature 99.8 (NC), approximately 5:00 pulse went up to 180, respiratory rate 27. The patient transferred to the ICU. Dr. Leonard was consulted, tried digoxin first 500 mcg and then 250, but failed to control the SVT that was noted on the EKG. There were some abnormalities as well. Troponins are pending. Second dose of adenosine, Adenocard 6 mg IV and then repeated once another 6 mg brought the patient's heart rate down to 110. Other vital signs are still pending. The patient remains in the ICU. He is in good condition. He denies chest pain. There is diffuse abdominal discomfort. Some labs are still pending as well as his x-rays. IMPRESSION: Sepsis, hypotension, supraventricular tachycardia, rate of 180; hypotension, C. difficile colitis, positive blood in the stool, abdominal pain, seropositive rheumatoid arthritis, obstructive sleep apnea, on immunosuppressive medications for his rheumatoid arthritis IMPRESSION AND PLAN: In any case, the patient continues in the ICU in good condition, started him on a sepsis protocol, be tricky with his C. difficile. He is on Flagyl orally and IV Vancomycin at the present time and sputum cultures, blood cultures are still pending on that. We will make further evaluation on him as indicated with all these other tests are still in the orders stage. SANDRA NEGRETE MD DR: RAMONA/neetu JOB#: [id number] / [id number]
[2018-03-27 08:57] LABS: INFLUENZA A PATIENT NEGATIVE (NEGATIVE); INFLUENZA B PATIENT NEGATIVE (NEGATIVE)
[2018-03-27] MEDS ORDERED: ATORVASTATIN CALCIUM 20 MG TABLET PO SCH (09:00)
[2018-03-27] MEDS ORDERED: IV NORMAL SALINE 1,000ML 2,250 ML IV SCH (09:00)
[2018-03-27] MEDS: DULoxetine HCL 30 MG CAPSULE.DR PO SCH (09:00)
[2018-03-27] MEDS ORDERED: predniSONE 20 MG TABLET PO SCH (09:00)
[2018-03-27] MEDS ORDERED: VANCOMYCIN PER PHARMACY MC PRN (09:15)
--- NOTE | 2018-03-27 09:36 | PDOC2 ---
ALEXISCHEPE Cabrera COMPUTER OPERATIONS MANAGER 03/27/18 0935: CONSULT Date of Admission DATE: 03/27/18 TIME: 09:35 Reason for Consult: SVT History of Present Illness Mr Delaney is a 58 year old male with history of pulmonary fibrosis, hypertension , hyperlipidemia who presented to his PCP with complaints of diarrhea for a couple weeks. He was admitted to the hospital for evaluation and treatment of Cdiff. He then developed SVT with rates 180s to 200 bpm and consult was called. The rhythm apparently broke, likely due to vasovagal stimulation while preparing for adenosine. He has been sinus - sinus tachy since that time. He denies any increased dyspnea from his baseline, no chest pain, no lightheadedness. +palpitations during the episode but now resolved. He continues to feel tired and weak. Past Medical History Past Medical History pulmonary fibrosis (5L exertional oxygen), rheumatoid arthritis, hyperlipidemia , hypothyroid, GERD, anxiety, depression, elevated d dimer Last echo 08/18/17 Technically very difficult study. Valves not well visualized. The left ventricular systolic function is normal. The Ejection Fraction is 55-60%. There is normal LV segmental wall motion. There is no evidence of significant pericardial effusion MPI 08/18/17 Conclusion 1. Regadenoson cardioisotope stress test showed moderate amount of anteroapical wall ischemia associated with transient ischemic dilation. 2. Normal left ventricular systolic function with ejection fraction calculated at 57%. 3. Consider cardiac catheterization for definitive evaluation. Cath 08/20/17 RHC: RA - 8 mm Hg RV - 45/05/04 PA - PCWP - 11 mm Hg (Confirmed with a wedge saturation of 95%). Arterial sat - 96% PA sat - 57% ADELA CO - 5.3 L/min LEFT VENTRICULOGRAM: Deferred due to mild renal insufficiency and known EF on stress testing of > 55%. CORONARY ANGIOGRAPHY: LM is a large caliber vessel with normal angiographic appearance. LAD is a large caliber vessel with normal angiographic appearance. D1 is a moderate caliber vessel with normal angiographic apeparance. LCx is a moderate caliber co-dominant vessel with normal angiographic appearance. OM1 is a moderate caliber vessel with normal angiographic appearance. LPL1 is a moderate caliber vessel with normal angiographic appearance. RCA is a moderate caliber co-dominant vessel with an ostial 60-70% stenosis with catheter dampening upon engagement. RPDA is a moderate caliber vessel with normal angiographic appearance. Past Surgical History lap band, trigger finger, tonsillectomy Family History mother - from PE, sister - valve replacement, chf, bypass in her early 50s, age 58. Social History occasional cigar, quit > 3years ago, no significant ETOH, no illicit drugs Current Medications Current Medications Acetaminophen/ Hydrocodone Bitart (Lortab 7.5/325) 1 tab PRN Q6HRS PRN PO PAIN ; Start 03/26/18 at 12:00 Levothyroxine Sodium (Synthroid) 112 mcg DAILY06 PO Last administered on at 08:08; Start 03/27/18 at 06:00 Morphine Sulfate (Ms Contin) 30 mg BID PO Last administered on 03/27/18at 08:10 ; Start 03/26/18 at 21:00 Prednisone (Prednisone) 40 mg DAILY PO ; Start 03/27/18 at 09:00; Stop 03/27/18 at 09:00; Status DC Aspirin (Children'S Aspirin) 81 mg DAILYWBKFT PO ; Start 03/27/18 at 08:00 Non-Formulary Medication (Budesonide ) 0.5 mg RTBID NEB ; Start 03/26/18 at 20: 00; Status UNV Vitamin D (Vitamin D3) 2,000 unit DAILY PO ; Start 03/27/18 at 09:00 Duloxetine HCl (Cymbalta) 60 mg DAILY PO ; Start 03/27/18 at 09:00 Hydroxychloroquine Sulfate (Plaquenil) 200 mg BID PO Last administered on at 21:24; Start 03/26/18 at 21:00 Lorazepam (Ativan) 0.5 mg TID PO ; Start 03/26/18 at 14:00; Status Cancel Multivitamins/ Calcium (Thera-M Plus) 1 tab DAILY PO ; Start 03/27/18 at 09:00 Pantoprazole Sodium (Protonix) 40 mg DAILYAC PO ; Start 03/27/18 at 07:30; Stop 03/27/18 at 07:30; Status DC Atorvastatin Calcium (Lipitor) 80 mg DAILY PO ; Start 03/27/18 at 09:00; Stop 03/27/18 at 09:00; Status DC Non-Formulary Medication (Vancomycin/0.9 % Sod Chloride (Vanco 1.5 gm/300 ml-0.9 % NaCl)) 1.5 gm BID IV ; Start 03/26/18 at 21:00; Stop 03/26/18 at 21:00; Status DC Zolpidem Tartrate (Ambien) 10 mg QHS PO Last administered on 03/26/18at 21:25; Start 03/26/18 at 21:00 Sodium Chloride 1,000 ml @ 100 mls/hr Q10H IV Last administered on 03/27/18at 07:20; Start 03/26/18 at 12:00 Lorazepam (Ativan) 0.5 mg PRN TID PRN PO ANXIETY / AGITATION; Start 03/26/18 at 12:30 Budesonide (Pulmicort) 0.5 mg RTBID NEB ; Start 03/26/18 at 20:00 Prednisone (Prednisone) 10 mg DAILY PO ; Start 03/27/18 at 09:00 Metronidazole (Flagyl) 500 mg Q8HRS PO Last administered on 03/27/18at 08:08; Start 03/26/18 at 16:00 Enoxaparin Sodium (Lovenox 40mg Syringe) 40 mg Q12HR SQ Last administered on at 21:26; Start 03/26/18 at 21:00 Loperamide HCl (Imodium) 2 mg PRN QID PRN PO DIARRHEA Last administered on 03/26at 22:27; Start 03/26/18 at 21:30 Adenosine (Adenocard) 6 mg STK-MED ONCE IV ; Start 03/27/18 at 04:51; Stop 03/27 at 04:52; Status DC Digoxin (Lanoxin) 500 mcg STK-MED ONCE .ROUTE ; Start 03/27/18 at 05:06; Stop 03/27/18 at 05:07; Status DC Digoxin (Lanoxin) 250 mcg 1X ONCE IV Last administered on 03/27/18at 05:10; Start 03/27/18 at 05:45; Stop 03/27/18 at 05:46; Status DC Lactobacillus Rhamnosus (Culturelle) 1 cap BID PO ; Start 03/27/18 at 09:00 Adenosine (Adenocard) 6 mg STK-MED ONCE IV ; Start 03/27/18 at 06:03; Stop 03/27 at 06:04; Status DC Magnesium Sulfate 100 ml @ 100 mls/hr 1X ONCE IV Last administered on at 07:42; Start 03/27/18 at 07:15; Stop 03/27/18 at 08:14; Status DC Iohexol (Omnipaque 240 Mg/ml) 30 ml 1X ONCE PO ; Start 03/27/18 at 07:30; Stop 03/27/18 at 07:33; Status DC Iohexol (Omnipaque 300 Mg/ml) 75 ml 1X ONCE IV ; Start 03/27/18 at 07:30; Stop 03/27/18 at 07:33; Status DC Iohexol (Omnipaque 300 Mg/ml) 25 ml 1X ONCE IV ; Start 03/27/18 at 07:30; Stop 03/27/18 at 07:33; Status DC Acetaminophen (Tylenol) 325 mg STK-MED ONCE PO ; Start 03/27/18 at 07:58; Stop 03/27/18 at 07:59; Status DC Acetaminophen (Tylenol) 650 mg PRN Q6HRS PRN PO PAIN / TEMP Last administered on 03/27/18at 08:08; Start 03/27/18 at 08:15 Sodium Chloride 2,250 ml @ 2,250 mls/hr Q1H IV Last administered on 03/27/18at 09:06; Start 03/27/18 at 09:00; Stop 03/27/18 at 09:15; Status DC Vancomycin HCl (Vanco Per Pharmacy) 1 each PRN DAILY PRN MC SEE COMMENTS; Start 03/27/18 at 09:15; Status UNV Vancomycin HCl (Vanco Per Pharmacy) 1 each PRN DAILY PRN MC SEE COMMENTS; Start 03/27/18 at 09:15 Sodium Chloride 1,000 ml @ 2,250 mls/hr Q27M IV ; Start 03/27/18 at 09:30; Stop 03/27/18 at 10:00 Vancomycin HCl 2 gm/Sodium Chloride 500 ml @ 250 mls/hr 1X ONCE IV ; Start at 10:00; Stop 03/27/18 at 11:59 Active Scripts Active Wheatley 7.5-325 Tablet (Hydrocodone Bit/Acetaminophen) 1 Each Tablet 1 Tab PO PRN Q6HRS PRN For break through pain Prednisone 5 Mg Tablet 40 Mg PO DAILY Take 5 tablets daily and decrease by one tablet every third day until you reach 10mg, then continue 10mg daily Budesonide 0.5 Mg/2 Ml Ampul.neb 0.5 Mg NEB RTBID Ambien (Zolpidem Tartrate) 10 Mg Tablet 1 Tab PO QHS Ms Contin (Morphine Sulfate) 30 Mg Tablet.er 1 Tab PO BID LAST DOSE GIVEN: DATE: TODAY TIME: AM NEXT DOSE DUE: DATE: TODAY TIME: PM Levothyroxine Sodium 112 Mcg Tablet 1 Tab PO DAILY LAST DOSE GIVEN: DATE: TODAY TIME: AM NEXT DOSE DUE: DATE: TOMORROW TIME: AM Lorazepam 0.5 Mg Tablet 1 Tab PO TID PRN Multi-Day Vitamins (Multivitamin) 1 Each Tablet 1 Tab PO DAILY Hydroxychloroquine Sulfate 200 Mg Tablet 1 Tab PO BID Crestor (Rosuvastatin Calcium) 20 Mg Tablet 1 Tab PO DAILY Reported Gabapentin 300 Mg Capsule Mucinex (Guaifenesin) 600 Mg Tablet.er 1 Tab PO BID LAST DOSE GIVEN: DATE: TODAY TIME: AM NEXT DOSE DUE: DATE: TODAY TIME: PM Vitamin D (Cholecalciferol (Vitamin D3)) 2,000 Unit Capsule 1 Cap PO DAILY LAST DOSE GIVEN: DATE: TIME: NEXT DOSE DUE: DATE: TIME: Protonix (Pantoprazole Sodium) 40 Mg Tablet.dr 1 Tab PO DAILY LAST DOSE GIVEN: DATE: TIME: AM NEXT DOSE DUE: DATE: TOMORROW TIME: AM Cymbalta (Duloxetine Hcl) 20 Mg Capsule.dr 3 Cap PO DAILY LAST DOSE GIVEN: DATE: TODAY TIME: AM NEXT DOSE DUE: DATE: TOMORROW TIME: AM Aspirin 81 Mg Tab.chew 1 Tab PO DAILY LAST DOSE GIVEN: DATE: TODAY TIME: AM NEXT DOSE DUE: DATE: TOMORROW TIME: AM Allergies: Coded Allergies: erythromycin base (Verified Allergy, Severe, 05/05/16) Sulfa (Sulfonamide Antibiotics) (Verified Allergy, Intermediate, 05/04/16) oxycodone (Verified Allergy, Intermediate, itching, 03/31/17) General: YES: Fatigue, Malaise Respiratory: YES: Cough, Shortness of breath Cardiovascular: yes: Palpitations Gastrointestinal: YES: Abdominal Pain, Diarrhea Musculoskeletal: YES: Joint Pain, Joint Stiffness General: Alert, Oriented X3, Cooperative, No acute distress Lungs: Other (few bilateral crackles mostly basilar) Heart: Normal S1, Normal S2, Other (no gallops, clicks or rubs) Abdomen: Other (+_ tenderness, + bowel sounds) Extremities: Normal pulses, Other (chronic bilateral lower extremity edema at baseline) Neuro: Normal speech, Strength at 5/5 X4 ext Psych/Mental Status: Mental status NL, Mood NL VITALS Vital Signs Date Time Temp Pulse Resp B/P (MAP) Pulse Ox O2 Delivery O2 Flow Rate FiO2 03/27/18 08:10 92 5.0 03/27/18 08:00 Bi-pap 03/27/18 06:36 117 28 82/49 (60) 03/26/18 23:30 99.8 Labs Laboratory Tests Test 03/26/18 13:00 03/26/18 14:10 03/26/18 18:50 03/27/18 05:20 Stool Occult Blood Positive (NEG) Clostridium difficile Toxin B Gene Positive (Negative) White Blood Count 3.4 x10^3/uL (4.0-11.0) 3.6 x10^3/uL (4.0-11.0) Red Blood Count 3.66 x10^6/uL (4.30-5.70) 3.51 x10^6/uL (4.30-5.70) Hemoglobin 10.9 g/dL (13.0-17.5) 10.5 g/dL (13.0-17.5) Hematocrit 31.8 % (39.0-53.0) 31.4 % (39.0-53.0) Mean Corpuscular Volume 87 fL (79-100) 90 fL (79-100) Mean Corpuscular Hemoglobin 30 pg (25-35) 30 pg (25-35) Mean Corpuscular Hemoglobin Concent 34 g/dL (31-37) 33 g/dL (31-37) Red Cell Distribution Width 16.9 % (11.5-14.5) 16.4 % (11.5-14.5) Platelet Count 201 x10^3/uL (140-400) 210 x10^3/uL (140-400) Neutrophils (%) (Auto) 56 % (31-73) 48 % (31-73) Lymphocytes (%) (Auto) 13 % (24-48) 21 % (24-48) Monocytes (%) (Auto) 28 % (0-9) 25 % (0-9) Eosinophils (%) (Auto) 3 % (0-3) 5 % (0-3) Basophils (%) (Auto) 1 % (0-3) 1 % (0-3) Neutrophils # (Auto) 1.9 x10^3uL (1.8-7.7) 1.7 x10^3uL (1.8-7.7) Lymphocytes # (Auto) 0.5 x10^3/uL (1.0-4.8) 0.8 x10^3/uL (1.0-4.8) Monocytes # (Auto) 0.9 x10^3/uL (0.0-1.1) 0.9 x10^3/uL (0.0-1.1) Eosinophils # (Auto) 0.1 x10^3/uL (0.0-0.7) 0.2 x10^3/uL (0.0-0.7) Basophils # (Auto) 0.0 x10^3/uL (0.0-0.2) 0.0 x10^3/uL (0.0-0.2) Segmented Neutrophils % 28 % (35-66) Band Neutrophils % 17 % (0-9) Lymphocytes % 22 % (24-48) Atypical Lymphocytes % (Manual) 4 % (0-0) Monocytes % 25 % (0-10) Eosinophils % 2 % (0-5) Basophils % 2 % (0-3) Toxic Granulation Present Toxic Vacuolation Present Dohle Bodies Present Platelet Estimate Adequate (ADEQUATE) D-Dimer (Yu) 5.15 mg/L (0.00-0.50) Sodium Level 127 mmol/L (136-145) 131 mmol/L (136-145) Potassium Level 3.7 mmol/L (3.5-5.1) 3.8 mmol/L (3.5-5.1) Chloride Level 90 mmol/L (98-107) 93 mmol/L (98-107) Carbon Dioxide Level 27 mmol/L (21-32) 24 mmol/L (21-32) Anion Gap 10 (6-14) 14 (6-14) Blood Urea Nitrogen 19 mg/dL (8-26) 19 mg/dL (8-26) Creatinine 1.5 mg/dL (0.7-1.3) 1.6 mg/dL (0.7-1.3) Estimated GFR (Cockcroft-Gault) 47.7 44.3 BUN/Creatinine Ratio 13 (6-20) 12 (6-20) Glucose Level 102 mg/dL (70-99) 112 mg/dL (70-99) Calcium Level 8.6 mg/dL (8.5-10.1) 7.9 mg/dL (8.5-10.1) Total Bilirubin 0.8 mg/dL (0.2-1.0) 0.5 mg/dL (0.2-1.0) Aspartate Amino Transf (AST/SGOT) 27 U/L (15-37) 28 U/L (15-37) Alanine Aminotransferase (ALT/SGPT) 13 U/L (16-63) 12 U/L (16-63) Alkaline Phosphatase 75 U/L (46-116) 73 U/L (46-116) Total Protein 7.1 g/dL (6.4-8.2) 5.8 g/dL (6.4-8.2) Albumin 2.3 g/dL (3.4-5.0) 2.2 g/dL (3.4-5.0) Albumin/Globulin Ratio 0.5 (1.0-1.7) 0.6 (1.0-1.7) Lactic Acid Level 2.7 mmol/L (0.4-2.0) Magnesium Level 1.6 mg/dL (1.8-2.4) Troponin I Quantitative < 0.017 ng/mL (0-0.055) ZX-Mxy-C-Type Natriuretic Peptide 1195 pg/mL (0-124) Test 03/27/18 06:25 03/27/18 08:16 Lactic Acid Level 1.5 mmol/L (0.4-2.0) Creatine Kinase 90 U/L (39-308) Influenza Type A (Rapid) Negative (NEGATIVE) Influenza Type B (Rapid) Negative (NEGATIVE) Images CXR - IMPRESSION: Unchanged extensive bilateral predominately interstitial opacities compatible with known fibrosis and bronchiectasis. A component of chronic pneumonitis cannot be excluded. EKG - #[address]/t abn #2 sinus tachycardia Assessment/Plan 1. SVT - remains sinus rhythm, sinus tachycardia at this time. Continue to monitor. Consider addition of daily medication if reoccurrence. 2. Cdiff - per PCP 3. hypotension - mild, secondary to #2 and dehydration 4. Renal insufficiency, acute - secondary to dehydration, agree with IVF 5. pulmonary fibrosis - Oxygen as indicated, mgmt per PCP 6. hyperlipidemia - statin 7. electrolyte imbalance - secondary to #2. replace and recheck. CAESAR SZYMANSKI MD 03/27/18 2236: CONSULT Assessment/Plan Patient seen and examined. Agree with GROUND SYSTEMS ENGINEER's assessment and plan. Patient with paroxysmal SVT presently back in sinus rhythm 2D echo showed normal LVF Plan event monitor as outpatient to evaluate need for antiarrhythmic therapy Will consider initiation of BB/CCB once BP stable Thank you for your consultation CHEPE ESPINOZA APRN Mar 27, 2018 09:35 CAESAR SZYMANSKI MD Mar 27, 2018 22:36
[2018-03-27] MEDS ORDERED: VANCOMYCIN 2 GM in IV NORMAL SALINE 500ML 500 ML IV ONE (10:00)
[2018-03-27] MEDS: VANCOMYCIN PER PHARMACY MC PRN (10:06)
[2018-03-27] MEDS: BUDESONIDE 0.5 MG/2 ML NEBU NEB SCH ×2 (11:25→20:00)
[2018-03-27] MEDS: CHOLECALCIFEROL (VITAMIN D3) 1,000 UNIT TABLET PO SCH (12:05)
[2018-03-27] MEDS: ENOXAPARIN 40 MG/0.4 ML SYRINGE. SQ SCH ×2 (12:05→21:10)
[2018-03-27] MEDS: MULTIVITAMIN with MINERAL TABLET. PO SCH (12:05)
[2018-03-27] MEDS: ASPIRIN 81 MG TAB.CHEW PO SCH (12:06)
[2018-03-27] MEDS: LACTOBACILLUS RHAMNOSUS GG 1 CAPSULE. PO SCH ×2 (12:06→21:09)
[2018-03-27] MEDS: predniSONE 10 MG TABLET PO SCH (12:06)
[2018-03-27] MEDS: HYDROXYCHLOROQUINE 200 MG TABLET PO SCH ×2 (12:08→21:09)
[2018-03-27 13:23] LABS: CLARITY,URINE HAZY; COLOR,URINE AMBER
[2018-03-27 13:24] LABS: AMORPHOUS SEDIMENT,UR PRESENT /HPF; BACTERIA,URINE MOD /HPF (0-FEW); BILIRUBIN,URINE NEG (NEG); GLUCOSE,URINE NEG (NEG); GRANULAR CASTS,URINE MOD /HPF; NITRITE,URINE NEG (NEG); SQUAMOUS EPITHELIAL CELL,UR FEW /LPF; UROBILINOGEN,URINE 1 mg/dL (0.2 mg/dL)
--- NOTE | 2018-03-27 14:16 | RAD ---
CT ANGIOGRAPHY CHEST Indication: Elevated d-dimer, shortness of breath. . Comparison: August 18, 2017 Technique: After intravenous contrast administration, CT imaging was performed of the chest. MIP reconstructions were obtained. Exposure: One or more of the following individualized dose reduction techniques were utilized for this examination: 1. Automated exposure control 2. Adjustment of the mA and/or kV according to patient size 3. Use of iterative reconstruction technique. Note there is significant image degradation due to body habitus. FINDINGS: Pulmonary arteries: Suboptimal opacification of the pulmonary arteries, results in nondiagnostic exam, cannot exclude pulmonary embolism. Appearance is similar to the prior exam. Thoracic aorta: Mildly calcified. No aneurysm. Tortuous. Thyroid gland: Not well seen. Lymph nodes: Right paratracheal lymph node measures 22 mm x 15 mm, compared with 18 mm x 8 mm on prior similar slice. Heart: Coronary artery calcifications. Esophagus: Small hiatal hernia. Pleural spaces: No significant effusion Lungs: Diffuse irregular opacity in both lungs, with multiple areas of cystic change and/or honeycombing are again identified. The degree of parenchymal density has increased, particularly in the lung bases but also in the right upper lobe. Trachea and central airways: Patent Bones: No destructive process Upper abdomen: Slices through the upper abdomen are limited due to the technique . Gastric lap band is again identified and appears stable in position. IMPRESSION: 1. Exam is nondiagnostic for pulmonary embolism due to body habitus and insufficient pulmonary artery contrast opacification. 2. Mild enlargement of right paratracheal lymph node, now measures 22 mm x 15 mm, compared with 18 mm x 8 mm on similar previous slice. 3. Diffuse chronic changes of both lungs are again identified. However, there is some increased parenchymal opacity in both lower lobes and right upper lobe, suspicious for more acute inflammatory/infectious disease. Electronically signed by: Kimo Angelo MD (03/27/2018 2:12 PM) [id number]
--- NOTE | 2018-03-27 16:03 | CARD ---
MR#: [id number] Date of Study: 03/27/2018 Ordering Physician: SANDRA NEGRETE, Referring Physician: SANDRA NEGRETE, Tech: Kaelyn Hewitt ROSEMARY APPROVED REPORT EXAM: Two-dimensional and M-mode echocardiogram with Doppler and color Doppler. Other Information Quality : PoorHR: 90bpm Rhythm : NSRTechnically limited study due to body habitus and COPD. INDICATION Hypotension 2D DIMENSIONS RVDd4.0 (2.9-3.5cm)Left Atrium(2D)3.4 (1.6-4.0cm) IVSd1.1 (0.7-1.1cm)Aortic Root(2D)3.7 (2.0-3.7cm) LVDd5.4 (3.9-5.9cm)LVOT Diameter2.4 (1.8-2.4cm) PWd1.3 (0.7-1.1cm)LVDs4.2 (2.5-4.0cm) FS (%) 22.9 %SV65.2 ml Aortic Valve AoV Peak Bill.143.2cm/sAoV VTI25.0cm AO Peak GR.8.2mmHgLVOT Peak Bill.93.5cm/s LVOT VTI 20.77cmAO Mean GR.5mmHg SEDRICK (VMAX)2.28vu5RPY (VTI)3.62cm2 Mitral Valve MV E Xiipfetz53.8cm/sMV DECEL [id number] MV A [place]77.5cm/sE/A Ratio1.2 MV A [id number] Pulmonary Valve PV Peak Bhrbjayg45.0cm/sPV Peak Grad.4mmHg Tricuspid Valve TR P. Gmahowih590pi/sRAP [id number] TR Peak Gr.[id number] LEFT VENTRICLE The left ventricle is normal size. There is borderline to mild concentric left ventricular hypertroph y. The left ventricular sytolic function appears to be normal. The ejection fraction is estimated at 55%. RIGHT VENTRICLE The right ventricle is normal size. There is normal right ventricular wall thickness. The right ventr icular systolic function is normal. ATRIA The left atrium is mildly dilated. The right atrium is mildly dilated. The interatrial septum is inta ct with no evidence for an atrial septal defect or patent foramen ovale as noted on 2-D or Doppler im aging. AORTIC VALVE The aortic valve is normal in structure and function. The aortic valve is trileaflet. Doppler and Col or Flow revealed no significant aortic regurgitation. There is no significant aortic valvular stenosi s. MITRAL VALVE The mitral valve is appears normal in structure and function in the parasternal views. There is no ev idence of mitral valve prolapse. There is no mitral valve stenosis. Doppler and Color Flow revealed n o mitral valve regurgitation noted. TRICUSPID VALVE The tricuspid valve is normal in structure and function. Doppler and Color Flow revealed trace tricus pid regurgitation. There is moderate pulmonary hypertension. The PA pressure was estimated at 64 mmHg . There is no tricuspid valve prolapse or vegetation. There is no tricuspid valve stenosis. PULMONIC VALVE Pulmonic valve not well visualized. GREAT VESSELS The aortic root is mildly enlarged. The ascending aorta is normal in size. PERICARDIAL EFFUSION There is no evidence of significant pericardial effusion. Critical Notification Critical Value: No <Conclusion> Technically difficult study. The left ventricular sytolic function appears to be normal. The ejection fraction is estimated at 55%. Trace tricuspid regurgitation. There is moderate pulmonary hypertension. The PA pressure was estimated at 64 mmHg. There is no evidence of significant pericardial effusion. Signed by : Sagar Limon, Electronically Approved : 03/27/2018 16:01:57
--- NOTE | 2018-03-27 17:01 | RAD ---
CT of the abdomen and pelvis with contrast, 03/27/2018: HISTORY: Diarrhea, abdominal pain, nausea Multidetector CT imaging was performed following oral and IV administration of contrast. There are extensive interstitial opacities in the lung bases with bronchiectasis and peripheral honeycombing. The findings suggest chronic interstitial lung disease/fibrosis. No pleural fluid is evident. No hepatic abnormality is seen. The gallbladder is unremarkable. The pancreas shows no abnormality. The spleen is of normal size. No renal or adrenal abnormality is detected. There is mild aortoiliac calcific plaquing. No abdominal or pelvic adenopathy is seen. A lap band device is evident related to the proximal stomach. The bowel loops are not dilated. There is a suggestion of mild colonic mural thickening, such as in the distal descending colon. Lack of colonic distention may be contributing to this appearance. No free air or free fluid is evident in the abdomen or pelvis. Moderate multilevel degenerative changes are present in the spine. IMPRESSION: 1. A LAP-BAND type device is in place. 2. Probable mild colonic mural thickening compatible with nonspecific colitis. 3. Extensive interstitial lung disease. PQRS Compliance Statement: One or more of the following individualized dose reduction techniques were utilized for this examination: 1. Automated exposure control 2. Adjustment of the mA and/or kV according to patient size 3. Use of iterative reconstruction technique Electronically signed by: Gavin Hanley MD (03/27/2018 4:57 PM) [facility]
[2018-03-27] MEDS ORDERED: LACTOBACILLUS RHAMNOSUS GG 1 CAPSULE. PO SCH (21:00)
[2018-03-27] MEDS: ZOLPIDEM 5 MG TABLET. PO SCH (21:09)
[2018-03-28] VITALS (8 sets, daily range): BP systolic 107–132; BP diastolic 62–77
[2018-03-28] MEDS: LEVOTHYROXINE 112 MCG TABLET PO SCH (06:13)
[2018-03-28] MEDS: metroNIDAZOLE 500 MG TABLET PO SCH ×3 (06:13→20:58)
[2018-03-28] MEDS: LACTOBACILLUS RHAMNOSUS GG 1 CAPSULE. PO SCH (07:42)
[2018-03-28] MEDS: ENOXAPARIN 40 MG/0.4 ML SYRINGE. SQ SCH ×2 (07:42→20:58)
[2018-03-28] MEDS: DULoxetine HCL 30 MG CAPSULE.DR PO SCH (07:43)
[2018-03-28] MEDS: ASPIRIN 81 MG TAB.CHEW PO SCH (07:43)
[2018-03-28] MEDS: MULTIVITAMIN with MINERAL TABLET. PO SCH (07:43)
[2018-03-28] MEDS: predniSONE 10 MG TABLET PO SCH (07:43)
[2018-03-28] MEDS: HYDROXYCHLOROQUINE 200 MG TABLET PO SCH ×2 (07:43→20:59)
[2018-03-28] MEDS: CHOLECALCIFEROL (VITAMIN D3) 1,000 UNIT TABLET PO SCH (07:43)
[2018-03-28] MEDS: MORPHINE ER 30 MG TABLET.ER PO SCH ×2 (07:43→20:59)
[2018-03-28] MEDS: BUDESONIDE 0.5 MG/2 ML NEBU NEB SCH ×2 (08:00→20:36)
[2018-03-28 08:13] LABS: HEMOGLOBIN A1C 5.7 % (4.8-5.6)
[2018-03-28 09:04] LABS: BASO % 1 % (0-3); EOS # 0.2 x10^3/uL (0.0-0.7); EOS % 5 % (0-3); HEMOGLOBIN 9.7 g/dL (13.0-17.5); LYMPH # 0.7 x10^3/uL (1.0-4.8); LYMPH % 17 % (24-48); MEAN CORPUSCULAR HEMOGLOBIN 30 pg (25-35); MEAN CORPUSCULAR HGB CONC 33 g/dL (31-37); MEAN CORPUSCULAR VOLUME 90 fL (79-100); MONO # 0.8 x10^3/uL (0.0-1.1); MONO % 19 % (0-9); NEUT # 2.4 x10^3uL (1.8-7.7); NEUT % 59 % (31-73); PLATELET COUNT 213 x10^3/uL (140-400); RED BLOOD COUNT 3.21 x10^6/uL (4.30-5.70); RED CELL DISTRIBUTION WIDTH 16.8 % (11.5-14.5); WHITE BLOOD COUNT 4.1 x10^3/uL (4.0-11.0)
[2018-03-28 09:12] LABS: CREATININE 1.4 mg/dL (0.7-1.3); GFR 51.7
[2018-03-28] MEDS ORDERED: POTASSIUM CHLORIDE 20 MEQ TABLET.ER. PO ONE ×2 (09:30→09:40)
--- NOTE | 2018-03-28 09:39 | PDOC ---
PROGRESS NOTES Assessment 1. SVT - remains sinus rhythm, sinus tachycardia at this time. Continue to monitor. Outpatient MCT to eval for recurrent SVT as well as for PVC burden. consider add low dose BB as tolerated after replacement of electrolytes. 2. Cdiff - per PCP 3. hypotension - improved. continue to monitor. 4. Renal insufficiency, acute - secondary to dehydration, improving with IVF 5. Hypokalemia - replace and recheck 5. pulmonary fibrosis - Oxygen as indicated, mgmt per PCP 6. hyperlipidemia - statin Subjective still having diarrhea stools but reports improvement. dyspnea at baseline, no chest pain, palpitations, lightheadedness Objective Vital Signs Date Time Temp Pulse Resp B/P (MAP) Pulse Ox O2 Delivery O2 Flow Rate FiO2 03/28/18 08:00 Bi-pap 5.0 03/28/18 05:58 97.4 80 24 119/65 (83) 97 Intake and Output 03/28/18 07:00 Intake Total 6697 ml Output Total 650 ml Balance 6047 ml Intake Oral 1050 ml IV Total 5647 ml Output Urine Total 650 ml # Voids 1 # Bowel Movements 3 Abdomen: Normal bowel sounds, Soft Heart: Normal S1, Normal S2, Other (irregular, no gallops, clicks or rubs) Extremities: No cyanosis, Normal pulses General: Alert, Oriented X3, Cooperative, No acute distress HEENT: Atraumatic, EOMI Lungs: Other (bilateral crackles) Neuro: Normal speech, Strength at 5/5 X4 ext Psych/Mental Status: Mental status NL, Mood NL Review of Relevant I have reviewed the following items jamie (where applicable) has been applied. Labs Laboratory Tests Test 03/26/18 13:00 03/26/18 14:10 03/26/18 18:50 03/27/18 05:20 Stool Occult Blood Positive (NEG) Clostridium difficile Toxin B Gene Positive (Negative) White Blood Count 3.4 x10^3/uL (4.0-11.0) 3.6 x10^3/uL (4.0-11.0) Red Blood Count 3.66 x10^6/uL (4.30-5.70) 3.51 x10^6/uL (4.30-5.70) Hemoglobin 10.9 g/dL (13.0-17.5) 10.5 g/dL (13.0-17.5) Hematocrit 31.8 % (39.0-53.0) 31.4 % (39.0-53.0) Mean Corpuscular Volume 87 fL (79-100) 90 fL (79-100) Mean Corpuscular Hemoglobin 30 pg (25-35) 30 pg (25-35) Mean Corpuscular Hemoglobin Concent 34 g/dL (31-37) 33 g/dL (31-37) Red Cell Distribution Width 16.9 % (11.5-14.5) 16.4 % (11.5-14.5) Platelet Count 201 x10^3/uL (140-400) 210 x10^3/uL (140-400) Neutrophils (%) (Auto) 56 % (31-73) 48 % (31-73) Lymphocytes (%) (Auto) 13 % (24-48) 21 % (24-48) Monocytes (%) (Auto) 28 % (0-9) 25 % (0-9) Eosinophils (%) (Auto) 3 % (0-3) 5 % (0-3) Basophils (%) (Auto) 1 % (0-3) 1 % (0-3) Neutrophils # (Auto) 1.9 x10^3uL (1.8-7.7) 1.7 x10^3uL (1.8-7.7) Lymphocytes # (Auto) 0.5 x10^3/uL (1.0-4.8) 0.8 x10^3/uL (1.0-4.8) Monocytes # (Auto) 0.9 x10^3/uL (0.0-1.1) 0.9 x10^3/uL (0.0-1.1) Eosinophils # (Auto) 0.1 x10^3/uL (0.0-0.7) 0.2 x10^3/uL (0.0-0.7) Basophils # (Auto) 0.0 x10^3/uL (0.0-0.2) 0.0 x10^3/uL (0.0-0.2) Segmented Neutrophils % 28 % (35-66) Band Neutrophils % 17 % (0-9) Lymphocytes % 22 % (24-48) Atypical Lymphocytes % (Manual) 4 % (0-0) Monocytes % 25 % (0-10) Eosinophils % 2 % (0-5) Basophils % 2 % (0-3) Toxic Granulation Present Toxic Vacuolation Present Dohle Bodies Present Platelet Estimate Adequate (ADEQUATE) D-Dimer (Yu) 5.15 mg/L (0.00-0.50) Sodium Level 127 mmol/L (136-145) 131 mmol/L (136-145) Potassium Level 3.7 mmol/L (3.5-5.1) 3.8 mmol/L (3.5-5.1) Chloride Level 90 mmol/L (98-107) 93 mmol/L (98-107) Carbon Dioxide Level 27 mmol/L (21-32) 24 mmol/L (21-32) Anion Gap 10 (6-14) 14 (6-14) Blood Urea Nitrogen 19 mg/dL (8-26) 19 mg/dL (8-26) Creatinine 1.5 mg/dL (0.7-1.3) 1.6 mg/dL (0.7-1.3) Estimated GFR (Cockcroft-Gault) 47.7 44.3 BUN/Creatinine Ratio 13 (6-20) 12 (6-20) Glucose Level 102 mg/dL (70-99) 112 mg/dL (70-99) Hemoglobin A1c 5.7 % (4.8-5.6) Calcium Level 8.6 mg/dL (8.5-10.1) 7.9 mg/dL (8.5-10.1) Total Bilirubin 0.8 mg/dL (0.2-1.0) 0.5 mg/dL (0.2-1.0) Aspartate Amino Transf (AST/SGOT) 27 U/L (15-37) 28 U/L (15-37) Alanine Aminotransferase (ALT/SGPT) 13 U/L (16-63) 12 U/L (16-63) Alkaline Phosphatase 75 U/L (46-116) 73 U/L (46-116) Total Protein 7.1 g/dL (6.4-8.2) 5.8 g/dL (6.4-8.2) Albumin 2.3 g/dL (3.4-5.0) 2.2 g/dL (3.4-5.0) Albumin/Globulin Ratio 0.5 (1.0-1.7) 0.6 (1.0-1.7) Lactic Acid Level 2.7 mmol/L (0.4-2.0) Magnesium Level 1.6 mg/dL (1.8-2.4) Troponin I Quantitative < 0.017 ng/mL (0-0.055) QX-Fma-W-Type Natriuretic Peptide 1195 pg/mL (0-124) Mycoplasma Serology (LAB) Negative (NEGATIVE) Test 03/27/18 06:25 03/27/18 07:59 03/27/18 08:16 03/27/18 10:11 Lactic Acid Level 1.5 mmol/L (0.4-2.0) Creatine Kinase 90 U/L (39-308) Procalcitonin 4.35 ng/mL (0.00-0.10) Nasal Screen MRSA (PCR) Negative (Negative) Influenza Type A (Rapid) Negative (NEGATIVE) Influenza Type B (Rapid) Negative (NEGATIVE) Troponin I Quantitative < 0.017 ng/mL (0-0.055) Test 03/27/18 12:50 03/28/18 08:54 Urine Collection Type Void Urine Color Maria A Urine Clarity Hazy Urine pH 6.0 Urine Specific [place] 1.015 Urine Protein 100 mg/dl (NEG-TRACE) Urine Glucose (UA) Neg mg/dL (NEG) Urine Ketones (Stick) Trace mg/dL (NEG) Urine Blood Mod (NEG) Urine Nitrite Neg (NEG) Urine Bilirubin Neg (NEG) Urine Urobilinogen Dipstick 1 mg/dL (0.2 mg/dL) Urine Leukocyte Esterase Neg (NEG) Urine RBC 1-2 /HPF (0-2) Urine WBC 1-4 /HPF (0-4) Urine Squamous Epithelial Cells Few /LPF Urine Amorphous Sediment Present /HPF Urine Bacteria Mod /HPF (0-FEW) Urine Granular Casts Mod /HPF Urine Mucus Slight /LPF White Blood Count 4.1 x10^3/uL (4.0-11.0) Red Blood Count 3.21 x10^6/uL (4.30-5.70) Hemoglobin 9.7 g/dL (13.0-17.5) Hematocrit 29.0 % (39.0-53.0) Mean Corpuscular Volume 90 fL (79-100) Mean Corpuscular Hemoglobin 30 pg (25-35) Mean Corpuscular Hemoglobin Concent 33 g/dL (31-37) Red Cell Distribution Width 16.8 % (11.5-14.5) Platelet Count 213 x10^3/uL (140-400) Neutrophils (%) (Auto) 59 % (31-73) Lymphocytes (%) (Auto) 17 % (24-48) Monocytes (%) (Auto) 19 % (0-9) Eosinophils (%) (Auto) 5 % (0-3) Basophils (%) (Auto) 1 % (0-3) Neutrophils # (Auto) 2.4 x10^3uL (1.8-7.7) Lymphocytes # (Auto) 0.7 x10^3/uL (1.0-4.8) Monocytes # (Auto) 0.8 x10^3/uL (0.0-1.1) Eosinophils # (Auto) 0.2 x10^3/uL (0.0-0.7) Basophils # (Auto) 0.0 x10^3/uL (0.0-0.2) Sodium Level 134 mmol/L (136-145) Potassium Level 3.0 mmol/L (3.5-5.1) Chloride Level 99 mmol/L (98-107) Carbon Dioxide Level 24 mmol/L (21-32) Anion Gap 11 (6-14) Blood Urea Nitrogen 17 mg/dL (8-26) Creatinine 1.4 mg/dL (0.7-1.3) Estimated GFR (Cockcroft-Gault) 51.7 Glucose Level 99 mg/dL (70-99) Calcium Level 8.0 mg/dL (8.5-10.1) Microbiology 03/27/18 Blood Culture - Preliminary, Resulted NO GROWTH AFTER 1 DAY... Medications Current Medications Acetaminophen/ Hydrocodone Bitart (Lortab 7.5/325) 1 tab PRN Q6HRS PRN PO PAIN ; Start 03/26/18 at 12:00 Levothyroxine Sodium (Synthroid) 112 mcg DAILY06 PO Last administered on at 06:13; Start 03/27/18 at 06:00 Morphine Sulfate (Ms Contin) 30 mg BID PO Last administered on 03/28/18at 07:43 ; Start 03/26/18 at 21:00 Prednisone (Prednisone) 40 mg DAILY PO ; Start 03/27/18 at 09:00; Stop 03/27/18 at 09:00; Status DC Aspirin (Children'S Aspirin) 81 mg DAILYWBKFT PO Last administered on at 07:43; Start 03/27/18 at 08:00 Non-Formulary Medication (Budesonide ) 0.5 mg RTBID NEB ; Start 03/26/18 at 20: 00; Status UNV Vitamin D (Vitamin D3) 2,000 unit DAILY PO Last administered on 03/28/18at 07:43 ; Start 03/27/18 at 09:00 Duloxetine HCl (Cymbalta) 60 mg DAILY PO Last administered on 03/28/18at 07:43; Start 03/27/18 at 09:00 Hydroxychloroquine Sulfate (Plaquenil) 200 mg BID PO Last administered on at 07:43; Start 03/26/18 at 21:00 Lorazepam (Ativan) 0.5 mg TID PO ; Start 03/26/18 at 14:00; Status Cancel Multivitamins/ Calcium (Thera-M Plus) 1 tab DAILY PO Last administered on at 07:43; Start 03/27/18 at 09:00 Pantoprazole Sodium (Protonix) 40 mg DAILYAC PO ; Start 03/27/18 at 07:30; Stop 03/27/18 at 07:30; Status DC Atorvastatin Calcium (Lipitor) 80 mg DAILY PO ; Start 03/27/18 at 09:00; Stop 03/27/18 at 09:00; Status DC Non-Formulary Medication (Vancomycin/0.9 % Sod Chloride (Vanco 1.5 gm/300 ml-0.9 % NaCl)) 1.5 gm BID IV ; Start 03/26/18 at 21:00; Stop 03/26/18 at 21:00; Status DC Zolpidem Tartrate (Ambien) 10 mg QHS PO Last administered on 03/27/18at 21:09; Start 03/26/18 at 21:00 Sodium Chloride 1,000 ml @ 100 mls/hr Q10H IV Last administered on 03/27/18at 23:53; Start 03/26/18 at 12:00 Lorazepam (Ativan) 0.5 mg PRN TID PRN PO ANXIETY / AGITATION; Start 03/26/18 at 12:30 Budesonide (Pulmicort) 0.5 mg RTBID NEB Last administered on 03/27/18at 11:25; Start 03/26/18 at 20:00 Prednisone (Prednisone) 10 mg DAILY PO Last administered on 03/28/18at 07:43; Start 03/27/18 at 09:00 Metronidazole (Flagyl) 500 mg Q8HRS PO Last administered on 03/28/18at 06:13; Start 03/26/18 at 16:00 Enoxaparin Sodium (Lovenox 40mg Syringe) 40 mg Q12HR SQ Last administered on 07:42; Start 03/26/18 at 21:00 Loperamide HCl (Imodium) 2 mg PRN QID PRN PO DIARRHEA Last administered on 03/26at 22:27; Start 03/26/18 at 21:30 Adenosine (Adenocard) 6 mg STK-MED ONCE IV ; Start 03/27/18 at 04:51; Stop 03/27 at 04:52; Status DC Digoxin (Lanoxin) 500 mcg STK-MED ONCE .ROUTE ; Start 03/27/18 at 05:06; Stop 03/27/18 at 05:07; Status DC Digoxin (Lanoxin) 250 mcg 1X ONCE IV Last administered on 03/27/18at 05:10; Start 03/27/18 at 05:45; Stop 03/27/18 at 05:46; Status DC Lactobacillus Rhamnosus (Culturelle) 1 cap BID PO Last administered on at 07:42; Start 03/27/18 at 09:00 Adenosine (Adenocard) 6 mg STK-MED ONCE IV ; Start 03/27/18 at 06:03; Stop 03/27 at 06:04; Status DC Magnesium Sulfate 100 ml @ 100 mls/hr 1X ONCE IV Last administered on at 07:42; Start 03/27/18 at 07:15; Stop 03/27/18 at 08:14; Status DC Iohexol (Omnipaque 240 Mg/ml) 30 ml 1X ONCE PO Last administered on 03/27/18at 07:20; Start 03/27/18 at 07:30; Stop 03/27/18 at 07:33; Status DC Iohexol (Omnipaque 300 Mg/ml) 75 ml 1X ONCE IV Last administered on 03/27/18at 11:00; Start 03/27/18 at 07:30; Stop 03/27/18 at 07:33; Status DC Iohexol (Omnipaque 300 Mg/ml) 25 ml 1X ONCE IV Last administered on 03/27/18at 10:55; Start 03/27/18 at 07:30; Stop 03/27/18 at 07:33; Status DC Acetaminophen (Tylenol) 325 mg STK-MED ONCE PO ; Start 03/27/18 at 07:58; Stop 03/27/18 at 07:59; Status DC Acetaminophen (Tylenol) 650 mg PRN Q6HRS PRN PO PAIN / TEMP Last administered on 03/27/18at 08:08; Start 03/27/18 at 08:15 Sodium Chloride 2,250 ml @ 2,250 mls/hr Q1H IV Last administered on 03/27/18at 09:06; Start 03/27/18 at 09:00; Stop 03/27/18 at 09:15; Status DC Vancomycin HCl (Vanco Per Pharmacy) 1 each PRN DAILY PRN MC SEE COMMENTS; Start 03/27/18 at 09:15; Status UNV Vancomycin HCl (Vanco Per Pharmacy) 1 each PRN DAILY PRN MC SEE COMMENTS Last administered on 03/27/18at 10:06; Start 03/27/18 at 09:15 Sodium Chloride 1,000 ml @ 2,250 mls/hr Q27M IV Last administered on at 12:39; Start 03/27/18 at 09:30; Stop 03/27/18 at 10:00; Status DC Vancomycin HCl 2 gm/Sodium Chloride 500 ml @ 250 mls/hr 1X ONCE IV Last administered on 03/27/18at 11:18; Start 03/27/18 at 10:00; Stop 03/27/18 at 11:59 ; Status DC Lactobacillus Rhamnosus (Culturelle) 1 cap BID PO ; Start 03/27/18 at 21:00; Status Cancel Vancomycin HCl (Vancomycin Trough Level) 1 each 1X ONCE MC ; Start 03/29/18 at 09:30; Stop 03/29/18 at 09:31 Vancomycin HCl 2 gm/Sodium Chloride 500 ml @ 250 mls/hr Q24H IV ; Start at 10:00 Potassium Chloride (Klor-Con) 40 meq 1X ONCE PO ; Start 03/28/18 at 09:30; Stop 03/28/18 at 09:31; Status UNV Guaifenesin (Robitussin Dm) 10 ml PRN Q6HRS PRN PO COUGH; Start 03/28/18 at 09: 30; Status UNV Active Scripts Active [place] 7.5-325 Tablet (Hydrocodone Bit/Acetaminophen) 1 Each Tablet 1 Tab PO PRN Q6HRS PRN For break through pain Prednisone 5 Mg Tablet 40 Mg PO DAILY Take 5 tablets daily and decrease by one tablet every third day until you reach 10mg, then continue 10mg daily Budesonide 0.5 Mg/2 Ml Ampul.neb 0.5 Mg NEB RTBID Ambien (Zolpidem Tartrate) 10 Mg Tablet 1 Tab PO QHS Ms Contin (Morphine Sulfate) 30 Mg Tablet.er 1 Tab PO BID LAST DOSE GIVEN: DATE: TODAY TIME: AM NEXT DOSE DUE: DATE: TODAY TIME: PM Levothyroxine Sodium 112 Mcg Tablet 1 Tab PO DAILY LAST DOSE GIVEN: DATE: TODAY TIME: AM NEXT DOSE DUE: DATE: TOMORROW TIME: AM Lorazepam 0.5 Mg Tablet 1 Tab PO TID PRN Multi-Day Vitamins (Multivitamin) 1 Each Tablet 1 Tab PO DAILY Hydroxychloroquine Sulfate 200 Mg Tablet 1 Tab PO BID Crestor (Rosuvastatin Calcium) 20 Mg Tablet 1 Tab PO DAILY Reported Gabapentin 300 Mg Capsule Mucinex (Guaifenesin) 600 Mg Tablet.er 1 Tab PO BID LAST DOSE GIVEN: DATE: TODAY TIME: AM NEXT DOSE DUE: DATE: TODAY TIME: PM Vitamin D (Cholecalciferol (Vitamin D3)) 2,000 Unit Capsule 1 Cap PO DAILY LAST DOSE GIVEN: DATE: TIME: NEXT DOSE DUE: DATE: TIME: Protonix (Pantoprazole Sodium) 40 Mg Tablet.dr 1 Tab PO DAILY LAST DOSE GIVEN: DATE: TODAY TIME: AM NEXT DOSE DUE: DATE: TOMORROW TIME: AM Cymbalta (Duloxetine Hcl) 20 Mg Capsule.dr 3 Cap PO DAILY LAST DOSE GIVEN: DATE: TODAY TIME: AM NEXT DOSE DUE: DATE: TOMORROW TIME: AM Aspirin 81 Mg Tab.chew 1 Tab PO DAILY LAST DOSE GIVEN: DATE: TODAY TIME: AM NEXT DOSE DUE: DATE: TOMORROW TIME: AM Vitals/I & O Vital Sign - Last 24 Hours 03/27/18 03/27/18 03/27/18 03/27/18 09:36 10:00 10:30 11:00 Pulse 83 88 82 Resp 28 22 24 B/P (MAP) 86/49 (61) 118/62 (80) 141/72 (95) Pulse Ox 92 6 92 O2 Delivery Trilogy Bipap Nasal Cannula Nasal Cannula Bi-pap O2 Flow Rate 5.0 5.0 5.0 5.0 03/27/18 03/27/18 03/27/18 03/27/18 11:22 11:30 13:33 15:07 Temp 98.4 Pulse 87 83 71 Resp 20 28 20 B/P (MAP) 132/75 (94) 114/56 (75) 116/69 (85) Pulse Ox 98 92 92 98 O2 Delivery Nasal Cannula Nasal Cannula Trilogy Bipap Nasal Cannula O2 Flow Rate 5.0 5.0 5.0 5.0 03/27/18 03/27/18 03/27/18 03/27/18 16:00 19:43 19:50 21:09 Temp 97.4 Pulse 70 Resp 24 22 B/P (MAP) 110/75 (87) Pulse Ox 100 100 O2 Delivery Bi-pap Nasal Cannula Nasal Cannula Nasal Cannula O2 Flow Rate 5.0 5.0 5.0 5.0 03/27/18 03/28/18 03/28/18 03/28/18 22:41 00:00 01:29 04:08 Temp 97.6 Pulse 79 Resp 22 22 B/P (MAP) 94/70 (78) Pulse Ox 94 94 O2 Delivery Trilogy Bipap Bi-pap BiPAP/CPAP Bi-pap O2 Flow Rate 5.0 5.0 5.0 5.0 03/28/18 03/28/18 03/28/18 05:58 07:43 08:00 Temp 97.4 Pulse 80 Resp 24 B/P (MAP) 119/65 (83) Pulse Ox 97 O2 Delivery Trilogy Bipap Nasal Cannula Bi-pap O2 Flow Rate 5.0 5.0 Intake and Output 1203/27/18 03/28/18 15:00 23:00 07:00 Intake Total 4350 ml 440 ml 1907 ml Output Total 350 ml 300 ml Balance 4350 ml 90 ml 1607 ml CHEPE ESPINOZA TESTER ELECTRONIC SCALE Mar 28, 2018 09:39
[2018-03-28] MEDS: LOPERAMIDE 2 MG CAPSULE PO PRN (09:49)
[2018-03-28] MEDS: guaiFENesin DM 200MG/20MG 10 ML SYRUP PO PRN ×2 (09:50→19:47)
[2018-03-28] MEDS: VANCOMYCIN 2 GM in IV NORMAL SALINE 500ML 500 ML IV SCH (09:50)
[2018-03-28] MEDS ORDERED: ELECTROLYTE (ICU) PROTOCOL. MC PRN (10:00)
[2018-03-28 14:32] LABS: CALCIUM 8.1 mg/dL (8.5-10.1); CREATININE 1.3 mg/dL (0.7-1.3); GFR 56.3; POTASSIUM 3.3 mmol/L (3.5-5.1)
--- NOTE | 2018-03-28 16:16 | PN ---
DATE: SUBJECTIVE: The patient with severe Pseudomembranous colitis secondary to Clostridium difficile. The patient is feeling a little bit better this morning, heart rate under better control. He was having SVT. He is down in the 80s. OBJECTIVE: VITAL SIGNS: Blood pressure approximately 120/65, respiratory rate 22, afebrile. He is on BiPAP at times, while is sleeping, on nasal cannula at 5 liters. GENERAL: Otherwise, the patient is alert and oriented x 3. Speech fluent, spontaneous, appropriate, feels much better. LUNGS: Diminished, some crackles, but markedly improved from yesterday. CARDIOVASCULAR: Regular sinus rhythm. ABDOMEN: Soft, nontender, no rebounding except slight guarding in the mid to left lower quadrant area, but markedly improved from where it was yesterday. The patient continued on his oral metronidazole and IV vancomycin ____ for possible bronchitis or lung infection noted on CT scan. CTA of chest and abdomen and pelvis did demonstrate the mild colonic mural thickening compatible with nonspecific colitis. Extensive interstitial lung disease, but he had a marked left shift yesterday. IMPRESSION: Sepsis, chronic interstitial fibrosis, seropositive rheumatoid arthritis. The patient continues on IV antibiotic for the lung infection. Oral medication for the C. difficile, which is slowing down number of stools yesterday and today is approximately 3, so he is making some improvement there. Cardiology is reviewing him and we will continue to monitor him for any further signs of fluid overload, may he was rehydrated and he was quite dehydrated as well. IMPRESSION: Clostridium difficile colitis, sepsis ____ lung infection, unknown etiology, anemia of chronic disease, hypokalemia, elevated D-dimer, proteinuria, chronic kidney disease, stage 3. Continue with above as noted. SANDRA NEGRETE MD DR: RAMOAN/neetu JOB#: [id number] / [id number]
[2018-03-28] MEDS: POTASSIUM CHLORIDE 20 MEQ TABLET.ER. PO SCH (20:58)
[2018-03-28] MEDS: ZOLPIDEM 5 MG TABLET. PO SCH (20:58)
[2018-03-28] MEDS: IV NORMAL SALINE 1,000ML 1,000 ML IV SCH (23:02)
[2018-03-29 06:00] VITALS: BP 162/73
[2018-03-29] MEDS: metroNIDAZOLE 500 MG TABLET PO SCH ×4 (06:04→22:13)
[2018-03-29] MEDS: LEVOTHYROXINE 112 MCG TABLET PO SCH (06:04)
[2018-03-29] MEDS: guaiFENesin DM 200MG/20MG 10 ML SYRUP PO PRN ×2 (06:20→21:45)
[2018-03-29] MEDS: HYDROXYCHLOROQUINE 200 MG TABLET PO SCH ×2 (07:23→21:41)
[2018-03-29] MEDS: ENOXAPARIN 40 MG/0.4 ML SYRINGE. SQ SCH ×2 (07:23→21:38)
[2018-03-29] MEDS: DULoxetine HCL 30 MG CAPSULE.DR PO SCH (07:23)
[2018-03-29] MEDS: ASPIRIN 81 MG TAB.CHEW PO SCH (07:24)
[2018-03-29] MEDS: CHOLECALCIFEROL (VITAMIN D3) 1,000 UNIT TABLET PO SCH (07:24)
[2018-03-29] MEDS: MULTIVITAMIN with MINERAL TABLET. PO SCH (07:24)
[2018-03-29] MEDS: predniSONE 10 MG TABLET PO SCH (07:24)
[2018-03-29] MEDS: MORPHINE ER 30 MG TABLET.ER PO SCH ×2 (07:24→21:41)
[2018-03-29] MEDS: BUDESONIDE 0.5 MG/2 ML NEBU NEB SCH ×2 (08:00→19:24)
[2018-03-29] MEDS ORDERED: POTASSIUM CHLORIDE 20 MEQ TABLET.ER. PO ONE ×2 (09:00→17:00)
[2018-03-29] MEDS: IV NORMAL SALINE 1,000ML 1,000 ML IV SCH (09:02)
[2018-03-29 09:52] LABS: BASO % 1 % (0-3); EOS # 0.3 x10^3/uL (0.0-0.7); EOS % 5 % (0-3); HEMATOCRIT 31.6 % (39.0-53.0); HEMOGLOBIN 10.4 g/dL (13.0-17.5); LYMPH # 1.1 x10^3/uL (1.0-4.8); LYMPH % 18 % (24-48); MEAN CORPUSCULAR HEMOGLOBIN 30 pg (25-35); MEAN CORPUSCULAR HGB CONC 33 g/dL (31-37); MEAN CORPUSCULAR VOLUME 90 fL (79-100); MONO # 0.7 x10^3/uL (0.0-1.1); MONO % 12 % (0-9); NEUT # 3.8 x10^3uL (1.8-7.7); NEUT % 64 % (31-73); PLATELET COUNT 267 x10^3/uL (140-400); RED CELL DISTRIBUTION WIDTH 17.2 % (11.5-14.5); WHITE BLOOD COUNT 5.9 x10^3/uL (4.0-11.0)
[2018-03-29 09:59] LABS: ALBUMIN 2.3 g/dL (3.4-5.0); ALBUMIN/GLOBULIN RATIO 0.5 (1.0-1.7); CALCIUM 8.4 mg/dL (8.5-10.1); CREATININE 1.4 mg/dL (0.7-1.3); GFR 51.7; MAGNESIUM 1.9 mg/dL (1.8-2.4); TOTAL BILIRUBIN 0.3 mg/dL (0.2-1.0); TOTAL PROTEIN 6.9 g/dL (6.4-8.2)
[2018-03-29 10:01] LABS: VANC TR 14.8 mcg/mL (10.0-20.0)
[2018-03-29] MEDS: VANCOMYCIN PER PHARMACY MC PRN (10:22)
[2018-03-29 10:39] LABS: % BANDS 10 % (0-9); % EOS 12 % (0-5); % LYMPHS 25 % (24-48); % MONOS 12 % (0-10); % SEGS 39 % (35-66); NUCLEATED RBC 1
[2018-03-29 10:40] LABS: PLT ESTIMATE ADEQUATE (ADEQUATE)
[2018-03-29 10:41] LABS: TOXIC GRANULATION PRESENT
[2018-03-29] MEDS: VANCOMYCIN 2 GM in IV NORMAL SALINE 500ML 500 ML IV SCH (10:50)
[2018-03-29 11:01] VITALS: BP 147/74
--- NOTE | 2018-03-29 11:07 | PDOC ---
CHEPE ESPINOZA PATTERN SCRATCHER 03/29/18 1107: PROGRESS NOTES Assessment 1. SVT - no new. Outpatient MCT 2. Frequent PVCs - improved this am. K+ remains low, replace and then consider beta jennifer. 3. C diff - per PCP 4. hypokalemia - replace and recheck. 5. hypertension - controlled. elevation today likely outlier. recheck. 6. hyperlipidemia - statin 7. renal insufficiency - secondary to diarrhea 8. pulmonary fibrosis - stable. follows with pulm at . Subjective feeling better, continued diarrhea. no chest pain, breathing at baseline, no palpitations Objective Vital Signs Date Time Temp Pulse Resp B/P (MAP) Pulse Ox O2 Delivery O2 Flow Rate FiO2 03/29/18 11:01 97.9 84 20 147/74 (98) 100 Nasal Cannula 5.0 Intake and Output 03/29/18 07:00 Intake Total 2380 ml Output Total 500 ml Balance 1880 ml Intake Oral 1880 ml IV Total 500 ml Output Urine Total 500 ml # Voids 3 # Bowel Movements 1 Abdomen: Normal bowel sounds, Soft Heart: Normal S1, Normal S2, Other (no gallops, clicks or rubs) Extremities: No cyanosis General: Alert, Oriented X3, Cooperative, No acute distress Lungs: Other (bilateral crackles) Neuro: Normal speech, Strength at 5/5 X4 ext Psych/Mental Status: Mental status NL, Mood NL Review of Relevant I have reviewed the following items jamie (where applicable) has been applied. Labs Laboratory Tests Test 03/27/18 12:50 03/28/18 08:54 03/28/18 14:15 03/29/18 09:36 Urine Collection Type Void Urine Color Maria A Urine Clarity Hazy Urine pH 6.0 Urine Specific [place] 1.015 Urine Protein 100 mg/dl (NEG-TRACE) Urine Glucose (UA) Neg mg/dL (NEG) Urine Ketones (Stick) Trace mg/dL (NEG) Urine Blood Mod (NEG) Urine Nitrite Neg (NEG) Urine Bilirubin Neg (NEG) Urine Urobilinogen Dipstick 1 mg/dL (0.2 mg/dL) Urine Leukocyte Esterase Neg (NEG) Urine RBC 1-2 /HPF (0-2) Urine WBC 1-4 /HPF (0-4) Urine Squamous Epithelial Cells Few /LPF Urine Amorphous Sediment Present /HPF Urine Bacteria Mod /HPF (0-FEW) Urine Granular Casts Mod /HPF Urine Mucus Slight /LPF White Blood Count 4.1 x10^3/uL (4.0-11.0) 5.9 x10^3/uL (4.0-11.0) Red Blood Count 3.21 x10^6/uL (4.30-5.70) 3.50 x10^6/uL (4.30-5.70) Hemoglobin 9.7 g/dL (13.0-17.5) 10.4 g/dL (13.0-17.5) Hematocrit 29.0 % (39.0-53.0) 31.6 % (39.0-53.0) Mean Corpuscular Volume 90 fL (79-100) 90 fL (79-100) Mean Corpuscular Hemoglobin 30 pg (25-35) 30 pg (25-35) Mean Corpuscular Hemoglobin Concent 33 g/dL (31-37) 33 g/dL (31-37) Red Cell Distribution Width 16.8 % (11.5-14.5) 17.2 % (11.5-14.5) Platelet Count 213 x10^3/uL (140-400) 267 x10^3/uL (140-400) Neutrophils (%) (Auto) 59 % (31-73) 64 % (31-73) Lymphocytes (%) (Auto) 17 % (24-48) 18 % (24-48) Monocytes (%) (Auto) 19 % (0-9) 12 % (0-9) Eosinophils (%) (Auto) 5 % (0-3) 5 % (0-3) Basophils (%) (Auto) 1 % (0-3) 1 % (0-3) Neutrophils # (Auto) 2.4 x10^3uL (1.8-7.7) 3.8 x10^3uL (1.8-7.7) Lymphocytes # (Auto) 0.7 x10^3/uL (1.0-4.8) 1.1 x10^3/uL (1.0-4.8) Monocytes # (Auto) 0.8 x10^3/uL (0.0-1.1) 0.7 x10^3/uL (0.0-1.1) Eosinophils # (Auto) 0.2 x10^3/uL (0.0-0.7) 0.3 x10^3/uL (0.0-0.7) Basophils # (Auto) 0.0 x10^3/uL (0.0-0.2) 0.0 x10^3/uL (0.0-0.2) Sodium Level 134 mmol/L (136-145) 133 mmol/L (136-145) 136 mmol/L (136-145) Potassium Level 3.0 mmol/L (3.5-5.1) 3.3 mmol/L (3.5-5.1) 3.0 mmol/L (3.5-5.1) Chloride Level 99 mmol/L (98-107) 100 mmol/L (98-107) 101 mmol/L (98-107) Carbon Dioxide Level 24 mmol/L (21-32) 25 mmol/L (21-32) 26 mmol/L (21-32) Anion Gap 11 (6-14) 8 (6-14) 9 (6-14) Blood Urea Nitrogen 17 mg/dL (8-26) 16 mg/dL (8-26) 13 mg/dL (8-26) Creatinine 1.4 mg/dL (0.7-1.3) 1.3 mg/dL (0.7-1.3) 1.4 mg/dL (0.7-1.3) Estimated GFR (Cockcroft-Gault) 51.7 56.3 51.7 Glucose Level 99 mg/dL (70-99) 171 mg/dL (70-99) 154 mg/dL (70-99) Calcium Level 8.0 mg/dL (8.5-10.1) 8.1 mg/dL (8.5-10.1) 8.4 mg/dL (8.5-10.1) Magnesium Level 2.0 mg/dL (1.8-2.4) 1.9 mg/dL (1.8-2.4) Segmented Neutrophils % 39 % (35-66) Band Neutrophils % 10 % (0-9) Lymphocytes % 25 % (24-48) Monocytes % 12 % (0-10) Eosinophils % 12 % (0-5) Nucleated Red Blood Cells 1 Toxic Granulation Present Dohle Bodies Present Platelet Estimate Adequate (ADEQUATE) BUN/Creatinine Ratio 9 (6-20) Total Bilirubin 0.3 mg/dL (0.2-1.0) Aspartate Amino Transf (AST/SGOT) 17 U/L (15-37) Alanine Aminotransferase (ALT/SGPT) 13 U/L (16-63) Alkaline Phosphatase 74 U/L (46-116) Total Protein 6.9 g/dL (6.4-8.2) Albumin 2.3 g/dL (3.4-5.0) Albumin/Globulin Ratio 0.5 (1.0-1.7) Vancomycin Level Trough 14.8 mcg/mL (10.0-20.0) Vancomycin Last Dose Date 03/28/18 Vancomycin Last Dose Time 1000 Microbiology 03/27/18 Blood Culture - Preliminary, Resulted NO GROWTH AFTER 2 DAYS... 03/27/18 - Final, Resulted 03/27/18 - Final, Resulted 03/27/18 - Final, Resulted 03/27/18 - Final, Resulted 03/27/18 Sputum Culture, Resulted Pending 03/27/18 Sputum Result 1, Resulted Pending 03/27/18 Urine Culture - Final, Complete 03/27/18 Urine Culture Result 1 (ARJUN) - Final, Complete Medications Current Medications Acetaminophen/ Hydrocodone Bitart (Lortab 7.5/325) 1 tab PRN Q6HRS PRN PO PAIN ; Start 03/26/18 at 12:00 Levothyroxine Sodium (Synthroid) 112 mcg DAILY06 PO Last administered on at 06:04; Start 03/27/18 at 06:00 Morphine Sulfate (Ms Contin) 30 mg BID PO Last administered on 03/29/18at 07:24 ; Start 03/26/18 at 21:00 Prednisone (Prednisone) 40 mg DAILY PO ; Start 03/27/18 at 09:00; Stop 03/27/18 at 09:00; Status DC Aspirin (Children'S Aspirin) 81 mg DAILYWBKFT PO Last administered on at 07:24; Start 03/27/18 at 08:00 Non-Formulary Medication (Budesonide ) 0.5 mg RTBID NEB ; Start 03/26/18 at 20: 00; Status UNV Vitamin D (Vitamin D3) 2,000 unit DAILY PO Last administered on 03/29/18at 07:24 ; Start 03/27/18 at 09:00 Duloxetine HCl (Cymbalta) 60 mg DAILY PO Last administered on 03/29/18 07:23; Start 03/27/18 at 09:00 Hydroxychloroquine Sulfate (Plaquenil) 200 mg BID PO Last administered on 07:23; Start 03/26/18 at 21:00 Lorazepam (Ativan) 0.5 mg TID PO ; Start 03/26/18 at 14:00; Status Cancel Multivitamins/ Calcium (Thera-M Plus) 1 tab DAILY PO Last administered on 07:24; Start 03/27/18 at 09:00 Pantoprazole Sodium (Protonix) 40 mg DAILYAC PO ; Start 03/27/18 at 07:30; Stop 03/27/18 at 07:30; Status DC Atorvastatin Calcium (Lipitor) 80 mg DAILY PO ; Start 03/27/18 at 09:00; Stop 03/27/18 at 09:00; Status DC Non-Formulary Medication (Vancomycin/0.9 % Sod Chloride (Vanco 1.5 gm/300 ml-0.9 % NaCl)) 1.5 gm BID IV ; Start 03/26/18 at 21:00; Stop 03/26/18 at 21:00; Status DC Zolpidem Tartrate (Ambien) 10 mg QHS PO Last administered on 03/28/18at 20:58; Start 03/26/18 at 21:00 Sodium Chloride 1,000 ml @ 100 mls/hr Q10H IV Last administered on 03/27/18at 23:53; Start 03/26/18 at 12:00 Lorazepam (Ativan) 0.5 mg PRN TID PRN PO ANXIETY / AGITATION; Start 03/26/18 at 12:30 Budesonide (Pulmicort) 0.5 mg RTBID NEB Last administered on 03/29/18at 08:00; Start 03/26/18 at 20:00 Prednisone (Prednisone) 10 mg DAILY PO Last administered on 03/29/18 07:24; Start 03/27/18 at 09:00 Metronidazole (Flagyl) 500 mg Q8HRS PO Last administered on 03/29/18 06:04; Start 03/26/18 at 16:00 Enoxaparin Sodium (Lovenox 40mg Syringe) 40 mg Q12HR SQ Last administered on at 07:23; Start 03/26/18 at 21:00 Loperamide HCl (Imodium) 2 mg PRN QID PRN PO DIARRHEA Last administered on 03/28at 09:49; Start 03/26/18 at 21:30 Adenosine (Adenocard) 6 mg STK-MED ONCE IV ; Start 03/27/18 at 04:51; Stop 03/27 at 04:52; Status DC Digoxin (Lanoxin) 500 mcg STK-MED ONCE .ROUTE ; Start 03/27/18 at 05:06; Stop 03/27/18 at 05:07; Status DC Digoxin (Lanoxin) 250 mcg 1X ONCE IV Last administered on 03/27/18at 05:10; Start 03/27/18 at 05:45; Stop 03/27/18 at 05:46; Status DC Lactobacillus Rhamnosus (Culturelle) 1 cap BID PO Last administered on at 07:42; Start 03/27/18 at 09:00; Stop 03/28/18 at 09:52; Status DC Adenosine (Adenocard) 6 mg STK-MED ONCE IV ; Start 03/27/18 at 06:03; Stop 03/27 at 06:04; Status DC Magnesium Sulfate 100 ml @ 100 mls/hr 1X ONCE IV Last administered on at 07:42; Start 03/27/18 at 07:15; Stop 03/27/18 at 08:14; Status DC Iohexol (Omnipaque 240 Mg/ml) 30 ml 1X ONCE PO Last administered on 03/27/18at 07:20; Start 03/27/18 at 07:30; Stop 03/27/18 at 07:33; Status DC Iohexol (Omnipaque 300 Mg/ml) 75 ml 1X ONCE IV Last administered on 03/27/18at 11:00; Start 03/27/18 at 07:30; Stop 03/27/18 at 07:33; Status DC Iohexol (Omnipaque 300 Mg/ml) 25 ml 1X ONCE IV Last administered on 03/27/18at 10:55; Start 03/27/18 at 07:30; Stop 03/27/18 at 07:33; Status DC Acetaminophen (Tylenol) 325 mg STK-MED ONCE PO ; Start 03/27/18 at 07:58; Stop 03/27/18 at 07:59; Status DC Acetaminophen (Tylenol) 650 mg PRN Q6HRS PRN PO PAIN / TEMP Last administered on 03/27/18at 08:08; Start 03/27/18 at 08:15 Sodium Chloride 2,250 ml @ 2,250 mls/hr Q1H IV Last administered on 03/27/18at 09:06; Start 03/27/18 at 09:00; Stop 03/27/18 at 09:15; Status DC Vancomycin HCl (Vanco Per Pharmacy) 1 each PRN DAILY PRN MC SEE COMMENTS; Start 03/27/18 at 09:15; Status UNV Vancomycin HCl (Vanco Per Pharmacy) 1 each PRN DAILY PRN MC SEE COMMENTS Last administered on 03/29/18at 10:22; Start 03/27/18 at 09:15 Sodium Chloride 1,000 ml @ 2,250 mls/hr Q27M IV Last administered on at 12:39; Start 03/27/18 at 09:30; Stop 03/27/18 at 10:00; Status DC Vancomycin HCl 2 gm/Sodium Chloride 500 ml @ 250 mls/hr 1X ONCE IV Last administered on 03/27/18at 11:18; Start 03/27/18 at 10:00; Stop 03/27/18 at 11:59 ; Status DC Lactobacillus Rhamnosus (Culturelle) 1 cap BID PO ; Start 03/27/18 at 21:00; Status Cancel Vancomycin HCl (Vancomycin Trough Level) 1 each 1X ONCE MC Last administered on 03/29/18at 09:30; Start 03/29/18 at 09:30; Stop 03/29/18 at 09:31; Status DC Vancomycin HCl 2 gm/Sodium Chloride 500 ml @ 250 mls/hr Q24H IV Last administered on 03/29/18at 10:50; Start 03/28/18 at 10:00 Potassium Chloride (Klor-Con) 40 meq 1X ONCE PO Last administered on at 09:50; Start 03/28/18 at 09:30; Stop 03/28/18 at 09:40; Status DC Guaifenesin (Robitussin Dm) 10 ml PRN Q6HRS PRN PO COUGH Last administered on 03/29/18at 06:20; Start 03/28/18 at 09:30 Potassium Chloride (Klor-Con) 20 meq STK-MED ONCE PO ; Start 03/28/18 at 09:40; Stop 03/28/18 at 09:41; Status DC Info ([facility] Electrolyte Protocol) 1 ea CONT PRN PRN MC PER PROTOCOL; Start at 10:00 Potassium Chloride (Klor-Con) 40 meq HS PO Last administered on 03/28/18at 20:58 ; Start 03/28/18 at 21:00 Potassium Chloride (Klor-Con) 40 meq 1X ONCE PO Last administered on at 07:28; Start 03/29/18 at 09:00; Stop 03/29/18 at 09:01; Status DC Potassium Chloride (Klor-Con) 20 meq BID PO ; Start 03/29/18 at 21:00 Active Scripts Active [place] 7.5-325 Tablet (Hydrocodone Bit/Acetaminophen) 1 Each Tablet 1 Tab PO PRN Q6HRS PRN For break through pain Prednisone 5 Mg Tablet 40 Mg PO DAILY Take 5 tablets daily and decrease by one tablet every third day until you reach 10mg, then continue 10mg daily Budesonide 0.5 Mg/2 Ml Ampul.neb 0.5 Mg NEB RTBID Ambien (Zolpidem Tartrate) 10 Mg Tablet 1 Tab PO QHS Ms Contin (Morphine Sulfate) 30 Mg Tablet.er 1 Tab PO BID LAST DOSE GIVEN: DATE: TODAY TIME: AM NEXT DOSE DUE: DATE: TODAY TIME: PM Levothyroxine Sodium 112 Mcg Tablet 1 Tab PO DAILY LAST DOSE GIVEN: DATE: TODAY TIME: AM NEXT DOSE DUE: DATE: TOMORROW TIME: AM Lorazepam 0.5 Mg Tablet 1 Tab PO TID PRN Multi-Day Vitamins (Multivitamin) 1 Each Tablet 1 Tab PO DAILY Hydroxychloroquine Sulfate 200 Mg Tablet 1 Tab PO BID Crestor (Rosuvastatin Calcium) 20 Mg Tablet 1 Tab PO DAILY Reported Gabapentin 300 Mg Capsule Mucinex (Guaifenesin) 600 Mg Tablet.er 1 Tab PO BID LAST DOSE GIVEN: DATE: TODAY TIME: AM NEXT DOSE DUE: DATE: TODAY TIME: PM Vitamin D (Cholecalciferol (Vitamin D3)) 2,000 Unit Capsule 1 Cap PO DAILY LAST DOSE GIVEN: DATE: TIME: NEXT DOSE DUE: DATE: TIME: Protonix (Pantoprazole Sodium) 40 Mg Tablet.dr 1 Tab PO DAILY LAST DOSE GIVEN: DATE: TODAY TIME: AM NEXT DOSE DUE: DATE: TOMORROW TIME: AM Cymbalta (Duloxetine Hcl) 20 Mg Capsule.dr 3 Cap PO DAILY LAST DOSE GIVEN: DATE: TODAY TIME: AM NEXT DOSE DUE: DATE: TOMORROW TIME: AM Aspirin 81 Mg Tab.chew 1 Tab PO DAILY LAST DOSE GIVEN: DATE: TODAY TIME: AM NEXT DOSE DUE: DATE: TOMORROW TIME: AM Vitals/I & O Vital Sign - Last 24 Hours 03/28/18 03/28/18 03/28/18 03/28/18 11:12 13:00 16:00 17:00 Temp 97.9 98.0 Pulse 84 62 78 Resp 20 20 20 B/P (MAP) 116/72 (87) 115/65 (82) 107/62 (77) Pulse Ox 92 96 97 O2 Delivery Nasal Cannula Nasal Cannula Bi-pap Nasal Cannula O2 Flow Rate 5.0 5.0 5.0 5.0 03/28/18 03/28/18 03/28/18 03/28/18 17:27 20:00 20:39 20:59 Pulse 80 Resp 20 22 B/P (MAP) 107/62 (77) Pulse Ox 92 98 98 O2 Delivery Nasal Cannula Nasal Cannula Nasal Cannula Nasal Cannula O2 Flow Rate 5.0 5.0 5.0 5.0 03/28/18 03/28/18 03/29/18 03/29/18 21:15 22:52 00:19 01:16 Temp 97.7 97.3 Pulse 85 87 Resp 22 19 20 B/P (MAP) 119/65 (83) 132/77 (95) Pulse Ox 100 98 98 O2 Delivery Nasal Cannula Trilogy Bipap Nasal Cannula BiPAP/CPAP O2 Flow Rate 5.0 5.0 5.0 5.0 03/29/18 03/29/18 03/29/18 03/29/18 04:10 06:00 08:00 09:36 Temp 97.6 Pulse 90 Resp 22 B/P (MAP) 162/73 (102) Pulse Ox 100 O2 Delivery Nasal Cannula Nasal Cannula Nasal Cannula Nasal Cannula O2 Flow Rate 5.0 5.0 5.0 5.0 03/29/18 11:01 Temp 97.9 Pulse 84 Resp 20 B/P (MAP) 147/74 (98) Pulse Ox 100 O2 Delivery Nasal Cannula O2 Flow Rate 5.0 Intake and Output 03/28/18 03/28/18 03/29/18 15:00 23:00 07:00 Intake Total 1100 ml 880 ml 400 ml Output Total 500 ml Balance 600 ml 880 ml 400 ml JOSE GAY MD 03/29/18 1635: PROGRESS NOTES Review of Relevant Pt. seen and examined. Agree with above DINKEY LOCOMOTIVE ENGINEER note. Stable from CV standpoint Start diuresis tomorrow if tolerated gently Give additional 80 meq of potassium today. Supportive care. Discussed with , patient and nurse. CHEPE ESPINOZA APRN Mar 29, 2018 11:07 JOSE GAY MD Mar 29, 2018 16:35
[2018-03-29 19:30] VITALS: BP 141/82
[2018-03-29] MEDS: ZOLPIDEM 5 MG TABLET. PO SCH (21:39)
[2018-03-29] MEDS: POTASSIUM CHLORIDE 20 MEQ TABLET.ER. PO SCH ×2 (21:39)
[2018-03-29 23:10] VITALS: BP 131/67
[2018-03-30] MEDS: LEVOTHYROXINE 112 MCG TABLET PO SCH (05:26)
[2018-03-30] MEDS: metroNIDAZOLE 500 MG TABLET PO SCH ×3 (05:26→21:48)
[2018-03-30 05:35] VITALS: BP 150/89
[2018-03-30] MEDS: ASPIRIN 81 MG TAB.CHEW PO SCH (07:56)
--- NOTE | 2018-03-30 08:56 | PDOC ---
PROGRESS NOTES Assessment 1. SVT - no new. Outpatient MCT 2. prob diastolic heart failure - mild increase in dyspnea today with increased peripheral edema. start low dose lasix and monitor closely for increasing Cr or dropping k+ 3. Frequent PVCs - improved. Repeat lab this am to eval k+. Consider beta jennifer low dose if ectopy continues. 4. C diff - diarrhea improved. mgmt per PCP 5. hypokalemia - replace and recheck if WNL start low dose lasix with k+ supplement. . 6. hypertension - controlled. 7. hyperlipidemia - statin 8. renal insufficiency - secondary to diarrhea. improved and Cr remaining stable at 1.4 9. pulmonary fibrosis - stable. follows with pulm at . await labs and start low dose lasix if tolerated. Subjective diarrhea has resolved. c/o increased edema and legs/feet being uncomfortable. Little more short of breath this am than baseline. no chest pain or palpitations. Objective Vital Signs Date Time Temp Pulse Resp B/P (MAP) Pulse Ox O2 Delivery O2 Flow Rate FiO2 03/30/18 08:09 Nasal Cannula 5.0 03/30/18 05:35 97.5 114 20 150/89 (109) 95 Intake and Output 03/30/18 07:00 Intake Total 940 ml Balance 940 ml Intake Oral 940 ml # Voids 1 Abdomen: Normal bowel sounds, Soft, No tenderness Heart: Normal S1, Normal S2, Other (no gallops, clicks or rubs) Extremities: No cyanosis, Other (++ edema bilateral feet, lower legs wrapped bilaterally) General: Alert, Oriented X3, Cooperative, No acute distress Lungs: Other (bilateral crackles throughout) Neuro: Normal speech, Strength at 5/5 X4 ext Psych/Mental Status: Mental status NL, Mood NL Review of Relevant I have reviewed the following items jamie (where applicable) has been applied. Labs Laboratory Tests Test 03/28/18 14:15 03/29/18 09:36 Sodium Level 133 mmol/L (136-145) 136 mmol/L (136-145) Potassium Level 3.3 mmol/L (3.5-5.1) 3.0 mmol/L (3.5-5.1) Chloride Level 100 mmol/L (98-107) 101 mmol/L (98-107) Carbon Dioxide Level 25 mmol/L (21-32) 26 mmol/L (21-32) Anion Gap 8 (6-14) 9 (6-14) Blood Urea Nitrogen 16 mg/dL (8-26) 13 mg/dL (8-26) Creatinine 1.3 mg/dL (0.7-1.3) 1.4 mg/dL (0.7-1.3) Estimated GFR (Cockcroft-Gault) 56.3 51.7 Glucose Level 171 mg/dL (70-99) 154 mg/dL (70-99) Calcium Level 8.1 mg/dL (8.5-10.1) 8.4 mg/dL (8.5-10.1) Magnesium Level 2.0 mg/dL (1.8-2.4) 1.9 mg/dL (1.8-2.4) White Blood Count 5.9 x10^3/uL (4.0-11.0) Red Blood Count 3.50 x10^6/uL (4.30-5.70) Hemoglobin 10.4 g/dL (13.0-17.5) Hematocrit 31.6 % (39.0-53.0) Mean Corpuscular Volume 90 fL (79-100) Mean Corpuscular Hemoglobin 30 pg (25-35) Mean Corpuscular Hemoglobin Concent 33 g/dL (31-37) Red Cell Distribution Width 17.2 % (11.5-14.5) Platelet Count 267 x10^3/uL (140-400) Neutrophils (%) (Auto) 64 % (31-73) Lymphocytes (%) (Auto) 18 % (24-48) Monocytes (%) (Auto) 12 % (0-9) Eosinophils (%) (Auto) 5 % (0-3) Basophils (%) (Auto) 1 % (0-3) Neutrophils # (Auto) 3.8 x10^3uL (1.8-7.7) Lymphocytes # (Auto) 1.1 x10^3/uL (1.0-4.8) Monocytes # (Auto) 0.7 x10^3/uL (0.0-1.1) Eosinophils # (Auto) 0.3 x10^3/uL (0.0-0.7) Basophils # (Auto) 0.0 x10^3/uL (0.0-0.2) Segmented Neutrophils % 39 % (35-66) Band Neutrophils % 10 % (0-9) Lymphocytes % 25 % (24-48) Monocytes % 12 % (0-10) Eosinophils % 12 % (0-5) Nucleated Red Blood Cells 1 Toxic Granulation Present Dohle Bodies Present Platelet Estimate Adequate (ADEQUATE) BUN/Creatinine Ratio 9 (6-20) Total Bilirubin 0.3 mg/dL (0.2-1.0) Aspartate Amino Transf (AST/SGOT) 17 U/L (15-37) Alanine Aminotransferase (ALT/SGPT) 13 U/L (16-63) Alkaline Phosphatase 74 U/L (46-116) Total Protein 6.9 g/dL (6.4-8.2) Albumin 2.3 g/dL (3.4-5.0) Albumin/Globulin Ratio 0.5 (1.0-1.7) Vancomycin Level Trough 14.8 mcg/mL (10.0-20.0) Vancomycin Last Dose Date 03/28/18 Vancomycin Last Dose Time 1000 Microbiology 03/27/18 Blood Culture - Preliminary, Resulted NO GROWTH AFTER 3 DAYS... 03/27/18 - Final, Complete 03/27/18 - Final, Complete 03/27/18 - Final, Complete 03/27/18 - Final, Complete 03/27/18 Sputum Culture - Final, Complete 03/27/18 Sputum Result 1 - Final, Complete 03/27/18 Sputum Result 2 - Final, Complete 03/27/18 Urine Culture - Final, Complete 03/27/18 Urine Culture Result 1 (ARJUN) - Final, Complete Medications Current Medications Acetaminophen/ Hydrocodone Bitart (Lortab 7.5/325) 1 tab PRN Q6HRS PRN PO PAIN ; Start 03/26/18 at 12:00 Levothyroxine Sodium (Synthroid) 112 mcg DAILY06 PO Last administered on at 05:26; Start 03/27/18 at 06:00 Morphine Sulfate (Ms Contin) 30 mg BID PO Last administered on 03/29/18at 21:41 ; Start 03/26/18 at 21:00 Prednisone (Prednisone) 40 mg DAILY PO ; Start 03/27/18 at 09:00; Stop 03/27/18 at 09:00; Status DC Aspirin (Children'S Aspirin) 81 mg DAILYWBKFT PO Last administered on at 07:56; Start 03/27/18 at 08:00 Non-Formulary Medication (Budesonide ) 0.5 mg RTBID NEB ; Start 03/26/18 at 20: 00; Status UNV Vitamin D (Vitamin D3) 2,000 unit DAILY PO Last administered on 03/29/18at 07:24 ; Start 03/27/18 at 09:00 Duloxetine HCl (Cymbalta) 60 mg DAILY PO Last administered on 03/29/18at 07:23; Start 03/27/18 at 09:00 Hydroxychloroquine Sulfate (Plaquenil) 200 mg BID PO Last administered on at 21:41; Start 03/26/18 at 21:00 Lorazepam (Ativan) 0.5 mg TID PO ; Start 03/26/18 at 14:00; Status Cancel Multivitamins/ Calcium (Thera-M Plus) 1 tab DAILY PO Last administered on at 07:24; Start 03/27/18 at 09:00 Pantoprazole Sodium (Protonix) 40 mg DAILYAC PO ; Start 03/27/18 at 07:30; Stop 03/27/18 at 07:30; Status DC Atorvastatin Calcium (Lipitor) 80 mg DAILY PO ; Start 03/27/18 at 09:00; Stop 03/27/18 at 09:00; Status DC Non-Formulary Medication (Vancomycin/0.9 % Sod Chloride (Vanco 1.5 gm/300 ml-0.9 % NaCl)) 1.5 gm BID IV ; Start 03/26/18 at 21:00; Stop 03/26/18 at 21:00; Status DC Zolpidem Tartrate (Ambien) 10 mg QHS PO Last administered on 03/29/18at 21:39; Start 03/26/18 at 21:00 Sodium Chloride 1,000 ml @ 100 mls/hr Q10H IV Last administered on 03/27/18at 23:53; Start 03/26/18 at 12:00; Stop 03/29/18 at 11:09; Status DC Lorazepam (Ativan) 0.5 mg PRN TID PRN PO ANXIETY / AGITATION; Start 03/26/18 at 12:30 Budesonide (Pulmicort) 0.5 mg RTBID NEB Last administered on 03/29/18at 19:24; Start 03/26/18 at 20:00 Prednisone (Prednisone) 10 mg DAILY PO Last administered on 03/29/18at 07:24; Start 03/27/18 at 09:00 Metronidazole (Flagyl) 500 mg Q8HRS PO Last administered on 03/30/18at 05:26; Start 03/26/18 at 16:00 Enoxaparin Sodium (Lovenox 40mg Syringe) 40 mg Q12HR SQ Last administered on at 21:38; Start 03/26/18 at 21:00 Loperamide HCl (Imodium) 2 mg PRN QID PRN PO DIARRHEA Last administered on 03/28at 09:49; Start 03/26/18 at 21:30 Adenosine (Adenocard) 6 mg STK-MED ONCE IV ; Start 03/27/18 at 04:51; Stop 03/27 at 04:52; Status DC Digoxin (Lanoxin) 500 mcg STK-MED ONCE .ROUTE ; Start 03/27/18 at 05:06; Stop 03/27/18 at 05:07; Status DC Digoxin (Lanoxin) 250 mcg 1X ONCE IV Last administered on 03/27/18at 05:10; Start 03/27/18 at 05:45; Stop 03/27/18 at 05:46; Status DC Lactobacillus Rhamnosus (Culturelle) 1 cap BID PO Last administered on at 07:42; Start 03/27/18 at 09:00; Stop 03/28/18 at 09:52; Status DC Adenosine (Adenocard) 6 mg STK-MED ONCE IV ; Start 03/27/18 at 06:03; Stop 03/27 at 06:04; Status DC Magnesium Sulfate 100 ml @ 100 mls/hr 1X ONCE IV Last administered on at 07:42; Start 03/27/18 at 07:15; Stop 03/27/18 at 08:14; Status DC Iohexol (Omnipaque 240 Mg/ml) 30 ml 1X ONCE PO Last administered on 03/27/18at 07:20; Start 03/27/18 at 07:30; Stop 03/27/18 at 07:33; Status DC Iohexol (Omnipaque 300 Mg/ml) 75 ml 1X ONCE IV Last administered on 03/27/18at 11:00; Start 03/27/18 at 07:30; Stop 03/27/18 at 07:33; Status DC Iohexol (Omnipaque 300 Mg/ml) 25 ml 1X ONCE IV Last administered on 03/27/18at 10:55; Start 03/27/18 at 07:30; Stop 03/27/18 at 07:33; Status DC Acetaminophen (Tylenol) 325 mg STK-MED ONCE PO ; Start 03/27/18 at 07:58; Stop 03/27/18 at 07:59; Status DC Acetaminophen (Tylenol) 650 mg PRN Q6HRS PRN PO PAIN / TEMP Last administered on 03/27/18at 08:08; Start 03/27/18 at 08:15 Sodium Chloride 2,250 ml @ 2,250 mls/hr Q1H IV Last administered on 03/27/18at 09:06; Start 03/27/18 at 09:00; Stop 03/27/18 at 09:15; Status DC Vancomycin HCl (Vanco Per Pharmacy) 1 each PRN DAILY PRN MC SEE COMMENTS; Start 03/27/18 at 09:15; Status UNV Vancomycin HCl (Vanco Per Pharmacy) 1 each PRN DAILY PRN MC SEE COMMENTS Last administered on 03/29/18at 10:22; Start 03/27/18 at 09:15 Sodium Chloride 1,000 ml @ 2,250 mls/hr Q27M IV Last administered on at 12:39; Start 03/27/18 at 09:30; Stop 03/27/18 at 10:00; Status DC Vancomycin HCl 2 gm/Sodium Chloride 500 ml @ 250 mls/hr 1X ONCE IV Last administered on 03/27/18at 11:18; Start 03/27/18 at 10:00; Stop 03/27/18 at 11:59 ; Status DC Lactobacillus Rhamnosus (Culturelle) 1 cap BID PO ; Start 03/27/18 at 21:00; Status Cancel Vancomycin HCl (Vancomycin Trough Level) 1 each 1X ONCE MC Last administered on 03/29/18at 09:30; Start 03/29/18 at 09:30; Stop 03/29/18 at 09:31; Status DC Vancomycin HCl 2 gm/Sodium Chloride 500 ml @ 250 mls/hr Q24H IV Last administered on 03/29/18at 10:50; Start 03/28/18 at 10:00 Potassium Chloride (Klor-Con) 40 meq 1X ONCE PO Last administered on at 09:50; Start 03/28/18 at 09:30; Stop 03/28/18 at 09:40; Status DC Guaifenesin (Robitussin Dm) 10 ml PRN Q6HRS PRN PO COUGH Last administered on 03/29/18at 21:45; Start 03/28/18 at 09:30 Potassium Chloride (Klor-Con) 20 meq STK-MED ONCE PO ; Start 03/28/18 at 09:40; Stop 03/28/18 at 09:41; Status DC Info (Icu Electrolyte Protocol) 1 ea CONT PRN PRN MC PER PROTOCOL; Start at 10:00 Potassium Chloride (Klor-Con) 40 meq HS PO Last administered on 03/29/18at 21:39 ; Start 03/28/18 at 21:00 Potassium Chloride (Klor-Con) 40 meq 1X ONCE PO Last administered on at 07:28; Start 03/29/18 at 09:00; Stop 03/29/18 at 09:01; Status DC Potassium Chloride (Klor-Con) 20 meq BID PO Last administered on 03/29/18at 21: 39; Start 03/29/18 at 21:00 Potassium Chloride (Klor-Con) 80 meq 1X ONCE PO Last administered on at 17:00; Start 03/29/18 at 17:00; Stop 03/29/18 at 17:01; Status DC Active Scripts Active [place] 7.5-325 Tablet (Hydrocodone Bit/Acetaminophen) 1 Each Tablet 1 Tab PO PRN Q6HRS PRN For break through pain Prednisone 5 Mg Tablet 40 Mg PO DAILY Take 5 tablets daily and decrease by one tablet every third day until you reach 10mg, then continue 10mg daily Budesonide 0.5 Mg/2 Ml Ampul.neb 0.5 Mg NEB RTBID Ambien (Zolpidem Tartrate) 10 Mg Tablet 1 Tab PO QHS Ms Contin (Morphine Sulfate) 30 Mg Tablet.er 1 Tab PO BID LAST DOSE GIVEN: DATE: TODAY TIME: AM NEXT DOSE DUE: DATE: TODAY TIME: PM Levothyroxine Sodium 112 Mcg Tablet 1 Tab PO DAILY LAST DOSE GIVEN: DATE: TODAY TIME: AM NEXT DOSE DUE: DATE: TOMORROW TIME: AM Lorazepam 0.5 Mg Tablet 1 Tab PO TID PRN Multi-Day Vitamins (Multivitamin) 1 Each Tablet 1 Tab PO DAILY Hydroxychloroquine Sulfate 200 Mg Tablet 1 Tab PO BID Crestor (Rosuvastatin Calcium) 20 Mg Tablet 1 Tab PO DAILY Reported Gabapentin 300 Mg Capsule Mucinex (Guaifenesin) 600 Mg Tablet.er 1 Tab PO BID LAST DOSE GIVEN: DATE: TODAY TIME: AM NEXT DOSE DUE: DATE: TODAY TIME: PM Vitamin D (Cholecalciferol (Vitamin D3)) 2,000 Unit Capsule 1 Cap PO DAILY LAST DOSE GIVEN: DATE: TIME: NEXT DOSE DUE: DATE: TIME: Protonix (Pantoprazole Sodium) 40 Mg Tablet.dr 1 Tab PO DAILY LAST DOSE GIVEN: DATE: TIME: AM NEXT DOSE DUE: DATE: TOMORROW TIME: AM Cymbalta (Duloxetine Hcl) 20 Mg Capsule.dr 3 Cap PO DAILY LAST DOSE GIVEN: DATE: TODAY TIME: AM NEXT DOSE DUE: DATE: TOMORROW TIME: AM Aspirin 81 Mg Tab.chew 1 Tab PO DAILY LAST DOSE GIVEN: DATE: TIME: AM NEXT DOSE DUE: DATE: TOMORROW TIME: AM Vitals/I & O Vital Sign - Last 24 Hours 03/29/18 03/29/18 03/29/18 03/29/18 09:36 11:01 11:29 15:04 Temp 97.9 Pulse 84 Resp 20 B/P (MAP) 147/74 (98) Pulse Ox 100 100 95 O2 Delivery Nasal Cannula Nasal Cannula Nasal Cannula O2 Flow Rate 5.0 5.0 5.0 5.0 03/29/18 03/29/18 03/29/18 03/29/18 19:26 19:30 20:00 21:41 Temp 98.2 Pulse 91 Resp 22 21 B/P (MAP) 141/82 (101) Pulse Ox 98 O2 Delivery Nasal Cannula Nasal Cannula Nasal Cannula Nasal Cannula O2 Flow Rate 5.0 5.0 5.0 5.0 03/29/18 03/30/18 03/30/18 03/30/18 23:10 02:01 05:35 08:09 Temp 97.7 97.5 Pulse 87 114 Resp 22 20 B/P (MAP) 131/67 (88) 150/89 (109) Pulse Ox 97 95 O2 Delivery Nasal Cannula BiPAP/CPAP Nasal Cannula Nasal Cannula O2 Flow Rate 5.0 5.0 5.0 Intake and Output 03/29/18 03/29/18 03/30/18 15:00 23:00 07:00 Intake Total 240 ml 300 ml 400 ml Balance 240 ml 300 ml 400 ml CHEPE ESPINOZA [employer] Mar 30, 2018 08:56
[2018-03-30] MEDS: DULoxetine HCL 30 MG CAPSULE.DR PO SCH (09:01)
[2018-03-30] MEDS: CHOLECALCIFEROL (VITAMIN D3) 1,000 UNIT TABLET PO SCH (09:02)
[2018-03-30] MEDS: ENOXAPARIN 40 MG/0.4 ML SYRINGE. SQ SCH ×2 (09:02→20:36)
[2018-03-30] MEDS: MORPHINE ER 30 MG TABLET.ER PO SCH ×2 (09:03→20:35)
[2018-03-30] MEDS: predniSONE 10 MG TABLET PO SCH (09:03)
[2018-03-30] MEDS: MULTIVITAMIN with MINERAL TABLET. PO SCH (09:04)
[2018-03-30] MEDS: POTASSIUM CHLORIDE 20 MEQ TABLET.ER. PO SCH ×3 (09:04→20:37)
[2018-03-30] MEDS: HYDROXYCHLOROQUINE 200 MG TABLET PO SCH ×2 (09:05→20:36)
[2018-03-30 09:36] LABS: CALCIUM 8.8 mg/dL (8.5-10.1); CREATININE 1.4 mg/dL (0.7-1.3); GFR 51.7
[2018-03-30] MEDS: VANCOMYCIN 2 GM in IV NORMAL SALINE 500ML 500 ML IV SCH (10:00)
[2018-03-30] MEDS: BUDESONIDE 0.5 MG/2 ML NEBU NEB SCH ×2 (10:08→20:35)
[2018-03-30 11:00] VITALS: BP 134/77
[2018-03-30] MEDS ORDERED: FUROSEMIDE 20 MG/2 ML VIAL IVP ONE (12:30)
[2018-03-30] MEDS ORDERED: POTASSIUM CHLORIDE 20 MEQ TABLET.ER. PO ONE (12:30)
[2018-03-30 15:00] VITALS: BP 133/86
[2018-03-30 19:11] VITALS: BP 135/72
[2018-03-30] MEDS: ZOLPIDEM 5 MG TABLET. PO SCH (20:35)
[2018-03-30] MEDS: PROMETH/CODEINE 6.25/10MG 5 ML SYRUP. PO PRN (20:36)
--- NOTE | 2018-03-30 21:52 | PN ---
DATE: SUBJECTIVE: The patient is a 58-year-old gentleman, who is in with multiple medical problems, pseudomembranous colitis secondary to Clostridium difficile and also supraventricular tachycardia, generalized weakness and deconditioning are also a problem here. He also has frequent PVCs and so forth, but in any case, he does seem to be making good progress. He is still extremely weak, still needs work with PT, OT. PHYSICAL EXAMINATION: VITAL SIGNS: Blood pressure is 150/90, respiratory rate 20, pulse anywhere from 90-115, afebrile. GENERAL: The patient is alert and oriented x 3. Speech is fluent, spontaneous, and appropriate. Cranial nerves 2-12 are intact. LUNGS: Diminished. CARDIOVASCULAR: Regular sinus rhythm, tachycardic at times. ABDOMEN: Otherwise, abdomen is protuberant. EXTREMITIES: No clubbing, cyanosis, just trace edema. NEUROLOGIC: The patient is somewhat depressed mood, may need to talk to Psychiatry, worry about a compression there. LABORATORY DATA: White count 5.9, Hemoglobin 10.4 and hematocrit 31. Chemistries show 144, BUN 13 and 1.4. The patient otherwise seems to be resting fairly comfortably and making fairly good progress overall. On that situation, the final reports are most as come back negative on a serology except for a positive C. difficile and that seems to be slowing down as the patient is having formed stool. Sputums were unremarkable. A few gram-positive organisms noted. Urine culture was negative and of course, blood cultures were also no growth. IMPRESSION: Supraventricular tachycardia, frequent premature ventricular contractions, Clostridium difficile colitis, hypokalemia, hypertension, hyperlipidemia, morbid obesity, renal insufficiency, obstructive sleep apnea, history of idiopathic pulmonary fibrosis. PLAN: The patient continued to be monitored carefully in the ICU. Consider skilled unit for this gentleman. SANDRA NEGRETE MD DR: RAMONA/neetu JOB#: [id number] / [id number]
[2018-03-30 23:17] VITALS: BP 140/79
[2018-03-31] MEDS: metroNIDAZOLE 500 MG TABLET PO SCH (05:41)
[2018-03-31] MEDS: LEVOTHYROXINE 112 MCG TABLET PO SCH (05:41)
[2018-03-31 05:47] VITALS: BP 146/81
[2018-03-31] MEDS: PROMETH/CODEINE 6.25/10MG 5 ML SYRUP. PO PRN (05:51)
[2018-03-31 06:53] LABS: BASO % 0 % (0-3); EOS # 0.3 x10^3/uL (0.0-0.7); EOS % 4 % (0-3); HEMATOCRIT 32.7 % (39.0-53.0); HEMOGLOBIN 10.7 g/dL (13.0-17.5); LYMPH # 1.7 x10^3/uL (1.0-4.8); LYMPH % 22 % (24-48); MEAN CORPUSCULAR HEMOGLOBIN 30 pg (25-35); MEAN CORPUSCULAR HGB CONC 33 g/dL (31-37); MEAN CORPUSCULAR VOLUME 92 fL (79-100); MONO # 0.8 x10^3/uL (0.0-1.1); MONO % 10 % (0-9); NEUT % 64 % (31-73); PLATELET COUNT 346 x10^3/uL (140-400); RED BLOOD COUNT 3.57 x10^6/uL (4.30-5.70); WHITE BLOOD COUNT 7.8 x10^3/uL (4.0-11.0)
[2018-03-31] MEDS: ASPIRIN 81 MG TAB.CHEW PO SCH (08:03)
[2018-03-31 08:12] VITALS: BP 141/80
[2018-03-31] MEDS: ENOXAPARIN 40 MG/0.4 ML SYRINGE. SQ SCH (09:23)
[2018-03-31] MEDS: MULTIVITAMIN with MINERAL TABLET. PO SCH (09:23)
[2018-03-31] MEDS: MORPHINE ER 30 MG TABLET.ER PO SCH (09:23)
[2018-03-31] MEDS: CHOLECALCIFEROL (VITAMIN D3) 1,000 UNIT TABLET PO SCH (09:24)
[2018-03-31] MEDS: predniSONE 10 MG TABLET PO SCH (09:24)
[2018-03-31] MEDS: DULoxetine HCL 30 MG CAPSULE.DR PO SCH (09:24)
[2018-03-31] MEDS: POTASSIUM CHLORIDE 20 MEQ TABLET.ER. PO SCH (09:24)
[2018-03-31] MEDS: HYDROXYCHLOROQUINE 200 MG TABLET PO SCH (09:25)
--- NOTE | 2018-03-31 09:54 | PDOC ---
PROGRESS NOTES Assessment 1. SVT - no new. Outpatient MCT when discharged from [facility]. 2. prob diastolic heart failure - compensated. mild peripheral edema remains though improved. continue low dose lasix orally for next 2 days then repeat BMP and discontinue lasix and potassium if appropriate. 3. Frequent PVCs - improved and now rare. k+ now WNL. Could consider low dose beta jennifer if ectopy increases. plan for MCT for burden on discharge from [facility]. 4. C diff - diarrhea resolved. mgmt per PCP 5. hypokalemia - now WNL. continue supplements while on lasix then stop. 6. hypertension - controlled. 7. hyperlipidemia - statin 8. renal insufficiency - secondary to diarrhea. resolved. Cr remaining stable at 1.4 with diuresis. Recheck on 04/02. 9. pulmonary fibrosis - stable. follows with pulm at . Ok with transfer to [facility]. Will follow peripherally. Follow up outpatient in 4 weeks from discharge. MCT on discharge. please notify office when discharge from [facility] orders received. Subjective feels much better. still swollen but improved and "toes no longer hurt". breathing back at baseline, no chest pain, no palpitations. no diarrhea. Objective Vital Signs Date Time Temp Pulse Resp B/P (MAP) Pulse Ox O2 Delivery O2 Flow Rate FiO2 03/31/18 09:23 18 94 Nasal Cannula 5.0 03/31/18 08:12 94 141/80 (100) 03/31/18 07:40 98.3 Intake and Output 03/31/18 07:00 Intake Total 1460 ml Output Total 1180 ml Balance 280 ml Intake Oral 960 ml IV Total 500 ml Output Urine Total 1180 ml # Voids 3 Abdomen: Normal bowel sounds, Soft, No tenderness Heart: Regular rate, Normal S1, Normal S2, Other (no gallops, clicks or rubs) Extremities: No cyanosis, Other (2+ edema lower extremities, improving from yesterday. Wraps in place.) HEENT: Atraumatic Lungs: Other (bilateral crackles) Neuro: Normal speech, Strength at 5/5 X4 ext Psych/Mental Status: Mental status NL, Mood NL Review of Relevant I have reviewed the following items jamie (where applicable) has been applied. Labs Laboratory Tests Test 03/30/18 09:05 03/31/18 06:00 Sodium Level 141 mmol/L (136-145) Potassium Level 4.0 mmol/L (3.5-5.1) Chloride Level 105 mmol/L (98-107) Carbon Dioxide Level 26 mmol/L (21-32) Anion Gap 10 (6-14) Blood Urea Nitrogen 13 mg/dL (8-26) Creatinine 1.4 mg/dL (0.7-1.3) Estimated GFR (Cockcroft-Gault) 51.7 Glucose Level 136 mg/dL (70-99) Calcium Level 8.8 mg/dL (8.5-10.1) White Blood Count 7.8 x10^3/uL (4.0-11.0) Red Blood Count 3.57 x10^6/uL (4.30-5.70) Hemoglobin 10.7 g/dL (13.0-17.5) Hematocrit 32.7 % (39.0-53.0) Mean Corpuscular Volume 92 fL (79-100) Mean Corpuscular Hemoglobin 30 pg (25-35) Mean Corpuscular Hemoglobin Concent 33 g/dL (31-37) Red Cell Distribution Width 17.0 % (11.5-14.5) Platelet Count 346 x10^3/uL (140-400) Neutrophils (%) (Auto) 64 % (31-73) Lymphocytes (%) (Auto) 22 % (24-48) Monocytes (%) (Auto) 10 % (0-9) Eosinophils (%) (Auto) 4 % (0-3) Basophils (%) (Auto) 0 % (0-3) Neutrophils # (Auto) 5.0 x10^3uL (1.8-7.7) Lymphocytes # (Auto) 1.7 x10^3/uL (1.0-4.8) Monocytes # (Auto) 0.8 x10^3/uL (0.0-1.1) Eosinophils # (Auto) 0.3 x10^3/uL (0.0-0.7) Basophils # (Auto) 0.0 x10^3/uL (0.0-0.2) Microbiology 03/27/18 Blood Culture - Preliminary, Resulted NO GROWTH AFTER 4 DAYS... 03/27/18 - Final, Complete 03/27/18 - Final, Complete 03/27/18 - Final, Complete 03/27/18 - Final, Complete 03/27/18 Sputum Culture - Final, Complete 03/27/18 Sputum Result 1 - Final, Complete 03/27/18 Sputum Result 2 - Final, Complete 03/27/18 Urine Culture - Final, Complete 03/27/18 Urine Culture Result 1 (ARJUN) - Final, Complete Medications Current Medications Acetaminophen/ Hydrocodone Bitart (Lortab 7.5/325) 1 tab PRN Q6HRS PRN PO PAIN ; Start 03/26/18 at 12:00 Levothyroxine Sodium (Synthroid) 112 mcg DAILY06 PO Last administered on at 05:41; Start 03/27/18 at 06:00 Morphine Sulfate (Ms Contin) 30 mg BID PO Last administered on 03/31/18at 09:23 ; Start 03/26/18 at 21:00 Prednisone (Prednisone) 40 mg DAILY PO ; Start 03/27/18 at 09:00; Stop 03/27/18 at 09:00; Status DC Aspirin (Children'S Aspirin) 81 mg DAILYWBKFT PO Last administered on at 08:03; Start 03/27/18 at 08:00 Non-Formulary Medication (Budesonide ) 0.5 mg RTBID NEB ; Start 03/26/18 at 20: 00; Status UNV Vitamin D (Vitamin D3) 2,000 unit DAILY PO Last administered on 03/31/18at 09:24 ; Start 03/27/18 at 09:00 Duloxetine HCl (Cymbalta) 60 mg DAILY PO Last administered on 03/31/18at 09:24; Start 03/27/18 at 09:00 Hydroxychloroquine Sulfate (Plaquenil) 200 mg BID PO Last administered on at 09:25; Start 03/26/18 at 21:00 Lorazepam (Ativan) 0.5 mg TID PO ; Start 03/26/18 at 14:00; Status Cancel Multivitamins/ Calcium (Thera-M Plus) 1 tab DAILY PO Last administered on at 09:23; Start 03/27/18 at 09:00 Pantoprazole Sodium (Protonix) 40 mg DAILYAC PO ; Start 03/27/18 at 07:30; Stop 03/27/18 at 07:30; Status DC Atorvastatin Calcium (Lipitor) 80 mg DAILY PO ; Start 03/27/18 at 09:00; Stop 03/27/18 at 09:00; Status DC Non-Formulary Medication (Vancomycin/0.9 % Sod Chloride (Vanco 1.5 gm/300 ml-0.9 % NaCl)) 1.5 gm BID IV ; Start 03/26/18 at 21:00; Stop 03/26/18 at 21:00; Status DC Zolpidem Tartrate (Ambien) 10 mg QHS PO Last administered on 03/30/18at 20:35; Start 03/26/18 at 21:00 Sodium Chloride 1,000 ml @ 100 mls/hr Q10H IV Last administered on 03/27/18at 23:53; Start 03/26/18 at 12:00; Stop 03/29/18 at 11:09; Status DC Lorazepam (Ativan) 0.5 mg PRN TID PRN PO ANXIETY / AGITATION; Start 03/26/18 at 12:30 Budesonide (Pulmicort) 0.5 mg RTBID NEB Last administered on 03/30/18at 20:35; Start 03/26/18 at 20:00 Prednisone (Prednisone) 10 mg DAILY PO Last administered on 03/31/18at 09:24; Start 03/27/18 at 09:00 Metronidazole (Flagyl) 500 mg Q8HRS PO Last administered on 03/31/18at 05:41; Start 03/26/18 at 16:00 Enoxaparin Sodium (Lovenox 40mg Syringe) 40 mg Q12HR SQ Last administered on at 09:23; Start 03/26/18 at 21:00 Loperamide HCl (Imodium) 2 mg PRN QID PRN PO DIARRHEA Last administered on 03/28at 09:49; Start 03/26/18 at 21:30 Adenosine (Adenocard) 6 mg STK-MED ONCE IV ; Start 03/27/18 at 04:51; Stop 03/27 at 04:52; Status DC Digoxin (Lanoxin) 500 mcg STK-MED ONCE .ROUTE ; Start 03/27/18 at 05:06; Stop 03/27/18 at 05:07; Status DC Digoxin (Lanoxin) 250 mcg 1X ONCE IV Last administered on 03/27/18at 05:10; Start 03/27/18 at 05:45; Stop 03/27/18 at 05:46; Status DC Lactobacillus Rhamnosus (Culturelle) 1 cap BID PO Last administered on at 07:42; Start 03/27/18 at 09:00; Stop 03/28/18 at 09:52; Status DC Adenosine (Adenocard) 6 mg STK-MED ONCE IV ; Start 03/27/18 at 06:03; Stop 03/27 at 06:04; Status DC Magnesium Sulfate 100 ml @ 100 mls/hr 1X ONCE IV Last administered on at 07:42; Start 03/27/18 at 07:15; Stop 03/27/18 at 08:14; Status DC Iohexol (Omnipaque 240 Mg/ml) 30 ml 1X ONCE PO Last administered on 03/27/18at 07:20; Start 03/27/18 at 07:30; Stop 03/27/18 at 07:33; Status DC Iohexol (Omnipaque 300 Mg/ml) 75 ml 1X ONCE IV Last administered on 03/27/18at 11:00; Start 03/27/18 at 07:30; Stop 03/27/18 at 07:33; Status DC Iohexol (Omnipaque 300 Mg/ml) 25 ml 1X ONCE IV Last administered on 03/27/18at 10:55; Start 03/27/18 at 07:30; Stop 03/27/18 at 07:33; Status DC Acetaminophen (Tylenol) 325 mg STK-MED ONCE PO ; Start 03/27/18 at 07:58; Stop 03/27/18 at 07:59; Status DC Acetaminophen (Tylenol) 650 mg PRN Q6HRS PRN PO PAIN / TEMP Last administered on 03/27/18at 08:08; Start 03/27/18 at 08:15 Sodium Chloride 2,250 ml @ 2,250 mls/hr Q1H IV Last administered on 03/27/18at 09:06; Start 03/27/18 at 09:00; Stop 03/27/18 at 09:15; Status DC Vancomycin HCl (Vanco Per Pharmacy) 1 each PRN DAILY PRN MC SEE COMMENTS; Start 03/27/18 at 09:15; Status UNV Vancomycin HCl (Vanco Per Pharmacy) 1 each PRN DAILY PRN MC SEE COMMENTS Last administered on 03/29/18at 10:22; Start 03/27/18 at 09:15 Sodium Chloride 1,000 ml @ 2,250 mls/hr Q27M IV Last administered on at 12:39; Start 03/27/18 at 09:30; Stop 03/27/18 at 10:00; Status DC Vancomycin HCl 2 gm/Sodium Chloride 500 ml @ 250 mls/hr 1X ONCE IV Last administered on 03/27/18at 11:18; Start 03/27/18 at 10:00; Stop 03/27/18 at 11:59 ; Status DC Lactobacillus Rhamnosus (Culturelle) 1 cap BID PO ; Start 03/27/18 at 21:00; Status Cancel Vancomycin HCl (Vancomycin Trough Level) 1 each 1X ONCE MC Last administered on 03/29/18at 09:30; Start 03/29/18 at 09:30; Stop 03/29/18 at 09:31; Status DC Vancomycin HCl 2 gm/Sodium Chloride 500 ml @ 250 mls/hr Q24H IV Last administered on 03/30/18at 10:00; Start 03/28/18 at 10:00 Potassium Chloride (Klor-Con) 40 meq 1X ONCE PO Last administered on at 09:50; Start 03/28/18 at 09:30; Stop 03/28/18 at 09:40; Status DC Guaifenesin (Robitussin Dm) 10 ml PRN Q6HRS PRN PO COUGH Last administered on 03/29/18at 21:45; Start 03/28/18 at 09:30 Potassium Chloride (Klor-Con) 20 meq STK-MED ONCE PO ; Start 03/28/18 at 09:40; Stop 03/28/18 at 09:41; Status DC Info (Icu Electrolyte Protocol) 1 ea CONT PRN PRN MC PER PROTOCOL; Start at 10:00 Potassium Chloride (Klor-Con) 40 meq HS PO Last administered on 03/30/18at 20:35 ; Start 03/28/18 at 21:00 Potassium Chloride (Klor-Con) 40 meq 1X ONCE PO Last administered on at 07:28; Start 03/29/18 at 09:00; Stop 03/29/18 at 09:01; Status DC Potassium Chloride (Klor-Con) 20 meq BID PO Last administered on 03/31/18at 09: 24; Start 03/29/18 at 21:00 Potassium Chloride (Klor-Con) 80 meq 1X ONCE PO Last administered on at 17:00; Start 03/29/18 at 17:00; Stop 03/29/18 at 17:01; Status DC Furosemide (Lasix) 20 mg 1X ONCE IVP Last administered on 03/30/18at 12:30; Start 03/30/18 at 12:30; Stop 03/30/18 at 12:31; Status DC Potassium Chloride (Klor-Con) 20 meq 1X ONCE PO Last administered on at 12:30; Start 03/30/18 at 12:30; Stop 03/30/18 at 12:31; Status DC Vancomycin HCl (Vancomycin Trough Level) 1 each 1X ONCE MC ; Start 04/03/18 at 09:30; Stop 04/03/18 at 09:31 Promethazine HCl/ Codeine (Phenergan With Codeine Oral Syrup) 5 ml PRN Q6HRS PRN PO COUGH Last administered on 03/31/18at 05:51; Start 03/30/18 at 15:15 Active Scripts Active [place] 7.5-325 Tablet (Hydrocodone Bit/Acetaminophen) 1 Each Tablet 1 Tab PO PRN Q6HRS PRN For break through pain Prednisone 5 Mg Tablet 40 Mg PO DAILY Take 5 tablets daily and decrease by one tablet every third day until you reach 10mg, then continue 10mg daily Budesonide 0.5 Mg/2 Ml Ampul.neb 0.5 Mg NEB RTBID Ambien (Zolpidem Tartrate) 10 Mg Tablet 1 Tab PO QHS Ms Contin (Morphine Sulfate) 30 Mg Tablet.er 1 Tab PO BID LAST DOSE GIVEN: DATE: TODAY TIME: AM NEXT DOSE DUE: DATE: TODAY TIME: PM Levothyroxine Sodium 112 Mcg Tablet 1 Tab PO DAILY LAST DOSE GIVEN: DATE: TODAY TIME: AM NEXT DOSE DUE: DATE: TOMORROW TIME: AM Lorazepam 0.5 Mg Tablet 1 Tab PO TID PRN Multi-Day Vitamins (Multivitamin) 1 Each Tablet 1 Tab PO DAILY Hydroxychloroquine Sulfate 200 Mg Tablet 1 Tab PO BID Crestor (Rosuvastatin Calcium) 20 Mg Tablet 1 Tab PO DAILY Reported Gabapentin 300 Mg Capsule Mucinex (Guaifenesin) 600 Mg Tablet.er 1 Tab PO BID LAST DOSE GIVEN: DATE: TODAY TIME: AM NEXT DOSE DUE: DATE: TODAY TIME: PM Vitamin D (Cholecalciferol (Vitamin D3)) 2,000 Unit Capsule 1 Cap PO DAILY LAST DOSE GIVEN: DATE: TIME: NEXT DOSE DUE: DATE: TIME: Protonix (Pantoprazole Sodium) 40 Mg Tablet.dr 1 Tab PO DAILY LAST DOSE GIVEN: DATE: TODAY TIME: AM NEXT DOSE DUE: DATE: TOMORROW TIME: AM Cymbalta (Duloxetine Hcl) 20 Mg Capsule.dr 3 Cap PO DAILY LAST DOSE GIVEN: DATE: TODAY TIME: AM NEXT DOSE DUE: DATE: TOMORROW TIME: AM Aspirin 81 Mg Tab.chew 1 Tab PO DAILY LAST DOSE GIVEN: DATE: TODAY TIME: AM NEXT DOSE DUE: DATE: TOMORROW TIME: AM Vitals/I & O Vital Sign - Last 24 Hours 03/30/18 03/30/18 03/30/18 03/30/18 10:09 11:00 15:00 19:11 Temp 98.1 97.9 Pulse 94 104 78 Resp 18 18 20 B/P (MAP) 134/77 (96) 133/86 (102) 135/72 (93) Pulse Ox 100 93 99 100 O2 Delivery Nasal Cannula Nasal Cannula Nasal Cannula Nasal Cannula O2 Flow Rate 5.0 5.0 5.0 5.0 03/30/18 03/30/18 03/30/18 03/30/18 20:00 20:35 20:39 23:17 Temp 97.8 Pulse 89 Resp 18 B/P (MAP) 140/79 (99) Pulse Ox 99 99 O2 Delivery Nasal Cannula Nasal Cannula Nasal Cannula Nasal Cannula O2 Flow Rate 5.0 5.0 5.0 5.0 03/31/18 03/31/18 03/31/18 03/31/18 00:41 05:47 07:40 08:07 Temp 97.5 98.3 Pulse 98 Resp 14 22 B/P (MAP) 146/81 (102) Pulse Ox 98 O2 Delivery BiPAP/CPAP Nasal Cannula Nasal Cannula O2 Flow Rate 5.0 5.0 5.0 03/31/18 03/31/18 08:12 09:23 Pulse 94 Resp 22 18 B/P (MAP) 141/80 (100) Pulse Ox 100 94 O2 Delivery Nasal Cannula Nasal Cannula O2 Flow Rate 5.0 5.0 Intake and Output 03/30/18 03/30/18 03/31/18 15:00 23:00 07:00 Intake Total 1060 ml 400 ml 0 ml Output Total 650 ml 530 ml Balance 410 ml -130 ml 0 ml CHEPE ESPINOZA [employer] Mar 31, 2018 09:54
[2018-03-31] MEDS: BUDESONIDE 0.5 MG/2 ML NEBU NEB SCH (10:20)
[2018-03-31 10:22] LABS: CALCIUM 8.8 mg/dL (8.5-10.1); CREATININE 1.4 mg/dL (0.7-1.3); GFR 51.7; POTASSIUM 4.3 mmol/L (3.5-5.1)
[2018-03-31] MEDS: VANCOMYCIN 2 GM in IV NORMAL SALINE 500ML 500 ML IV SCH (10:29)
[2018-03-31] MEDS ORDERED: FUROSEMIDE 20 MG TABLET PO SCH (11:00)
[2018-03-31 11:16] VITALS: BP 99/75
[2018-03-31] MEDS: VANCOMYCIN PER PHARMACY MC PRN (11:27)
[2018-03-31] MEDS ORDERED: PRED-220 PO (11:50)
[2018-03-31] MEDS ORDERED: POTA20TA4 PO (11:50)
[2018-03-31] MEDS ORDERED: ENOX40DI3 SQ (11:50)
[2018-03-31] MEDS ORDERED: FURO20TA3 PO (11:50)
[2018-03-31] MEDS ORDERED: LOPE2CAP PO (11:50)
[2018-03-31] MEDS ORDERED: METR-84 PO (11:50)
[2018-03-31] MEDS ORDERED: PROM118S5 PO (11:50)
[2018-03-31] MEDS ORDERED: ACET325T9 PO (11:50)
--- NOTE | 2018-04-05 19:53 | DS ---
DATE OF DISCHARGE: 03/31/2018 HOSPITAL COURSE: A 58-year-old gentleman came in with a couple of weeks for some severe diarrhea, has had multiple stools up to 10 a day, had a problem with severe abdominal pain, nausea, vomiting and dehydration, tachycardic, rate up to 180 at one time. The patient was considered to be septic, hypotensive on supraventricular tachycardia. C. difficile positive colitis. The patient was seen by Cardiology. He was given hydration and given oral antibiotics. He was also thought to have possibly a pneumonic process and he was started on IV antibiotic therapy. He made excellent progress. He still was very weak and this debilitated. He made good progress, but still very weak and debilitated, was discharged here to go to the staff unit for skilled rehabilitation. Otherwise, the patient made excellent progress. This is a pleasant gentleman. IMPRESSION: Sepsis, C. difficile colitis, respiratory infection, history of idiopathic pulmonary fibrosis, seropositive rheumatoid arthritis, obstructive sleep apnea, renal insufficiency, morbid obesity, hyperlipidemia, C. difficile colitis, PVCs and alike. See MRAD and decreased activity. Continue with rehabilitation here at the hospital there. SANDRA NEGRETE MD DR: RAMONA/neetu JOB#: [id number] / [id number]
== END 2018-03-31 12:36 | DRG 871 ==
LOC: 1 SOUTH 11:06 → ICU 03-27 05:43
PROVIDERS: ADMIT Family Medicine; ATTEND Family Medicine
DX: A41.9 Sepsis, unspecified organism (principal); J18.9 Pneumonia, unspecified organism; A04.72 Enterocolitis due to Clostridium difficile, not specified as recurrent; Z68.42 Body mass index [BMI] 45.0-49.9, adult; I13.0 Hypertensive heart and chronic kidney disease with heart failure and stage 1 through stage 4 chronic kidney disease, or unspecified chronic kidney disease; I47.1 Supraventricular tachycardia; I50.30 Unspecified diastolic (congestive) heart failure; E44.1 Mild protein-calorie malnutrition; F32.9 Major depressive disorder, single episode, unspecified; G89.29 Other chronic pain; M10.9 Gout, unspecified; D63.8 Anemia in other chronic diseases classified elsewhere; E03.9 Hypothyroidism, unspecified; R79.1 Abnormal coagulation profile; I49.3 Ventricular premature depolarization; E66.01 Morbid (severe) obesity due to excess calories; M05.9 Rheumatoid arthritis with rheumatoid factor, unspecified; J84.112 Idiopathic pulmonary fibrosis; E78.5 Hyperlipidemia, unspecified; K21.9 Gastro-esophageal reflux disease without esophagitis; N18.3 Chronic kidney disease, stage 3 (moderate); F41.1 Generalized anxiety disorder; G47.33 Obstructive sleep apnea (adult) (pediatric); E87.6 Hypokalemia; E86.0 Dehydration; Z88.1 Allergy status to other antibiotic agents; Z88.5 Allergy status to narcotic agent; Z88.8 Allergy status to other drugs, medicaments and biological substances; Z79.899 Other long term (current) drug therapy; Z87.891 Personal history of nicotine dependence; Z82.61 Family history of arthritis; Z84.0 Family history of diseases of the skin and subcutaneous tissue; Z98.84 Bariatric surgery status; Z82.49 Family history of ischemic heart disease and other diseases of the circulatory system; I95.9 Hypotension, unspecified
CPT/HCPCS: 36415; 71045; 71275; 74177; 80048; 80053; 80202; 81001; 82274; 82550; 83036; 83605; 83735; 83880; 84145; 84443; 84484; 85007; 85025; 85379; 86738; 87040; 87070; 87086; 87177; 87205; 87449; 87493; 87641; 87804; 93005; 93306; 94640; J1160; J1650; J3370; J3475; J7040; J7512; J7626; Q9966; Q9967; 97110; 97530; J7030

== ENCOUNTER 2018-03-31 10:38 | Inpatient (IN) | payer MEDICARE ==
[~2018-03-31] VITALS: Ht 180.3 cm; Wt 151.6 kg
[2018-03-31] MEDS ORDERED: FURO20TA3 PO (11:50)
[2018-03-31] MEDS ORDERED: PROM118S5 PO (11:50)
[2018-03-31] MEDS ORDERED: PRED-220 PO (11:50)
[2018-03-31] MEDS ORDERED: ACET325T9 PO (11:50)
[2018-03-31] MEDS ORDERED: METR-84 PO (11:50)
[2018-03-31] MEDS ORDERED: LOPE2CAP PO (11:50)
[2018-03-31] MEDS ORDERED: POTA20TA4 PO (11:50)
[2018-03-31] MEDS ORDERED: ENOX40DI3 SQ (11:50)
[2018-03-31] MEDS ORDERED: ACETAMINOPHEN 325 MG TABLET PO PRN (14:30)
[2018-03-31 14:51] VITALS: BP 113/80
[2018-03-31] MEDS ORDERED: LORazepam 0.5 MG TABLET PO PRN (15:00)
[2018-03-31 18:15] VITALS: BP 126/87
[2018-03-31] MEDS ORDERED: NON FORMULARY ITEM (Budesonide 0.5 MG) NEB SCH (20:00)
[2018-03-31] MEDS: ATORVASTATIN CALCIUM 20 MG TABLET PO SCH (20:51)
[2018-03-31] MEDS: MORPHINE ER 30 MG TABLET.ER PO SCH (20:51)
[2018-03-31] MEDS: PROMETH/CODEINE 6.25/10MG 5 ML SYRUP. PO PRN (20:51)
[2018-03-31] MEDS: ZOLPIDEM 5 MG TABLET. PO SCH (20:51)
[2018-03-31] MEDS: LACTOBACILLUS RHAMNOSUS GG 1 CAPSULE. PO SCH (20:51)
[2018-03-31] MEDS: HYDROXYCHLOROQUINE 200 MG TABLET PO SCH (20:52)
[2018-03-31] MEDS: ENOXAPARIN 40 MG/0.4 ML SYRINGE. SQ SCH (20:52)
[2018-03-31] MEDS: metroNIDAZOLE 500 MG TABLET PO SCH (21:01)
[2018-03-31] MEDS: BUDESONIDE 0.5 MG/2 ML NEBU NEB SCH (21:30)
[2018-04-01] MEDS: PROMETH/CODEINE 6.25/10MG 5 ML SYRUP. PO PRN (02:49)
[2018-04-01] MEDS: LEVOTHYROXINE 112 MCG TABLET PO SCH (05:18)
[2018-04-01] MEDS: metroNIDAZOLE 500 MG TABLET PO SCH ×3 (05:18→22:36)
[2018-04-01 05:27] VITALS: BP 103/69
--- NOTE | 2018-04-01 06:04 | PDOC ---
Exam Note: Trevor Note: Please also refer to the separate dictated note~for this date of service dictated separately.~Patient seen individually. Discussed the patient with Nursing staff reviewed the chart.~Reviewed interim history and current functioning. Reviewed vital signs,~Labs/ Radiology~and current medications noted below. Continue current treatment with the changes noted in the dictated addendum note. This is a late entry for 03/31/2018 Assessment: Vital Signs: VS - Last 72 Hours, by Label Date Time Temp Pulse Resp B/P (MAP) Pulse Ox O2 Delivery O2 Flow Rate FiO2 04/01/18 05:27 98.0 94 22 103/69 (80) 91 BiPAP/CPAP 04/01/18 00:51 BiPAP/CPAP 03/31/18 21:20 98 Nasal Cannula 5.0 03/31/18 20:51 Nasal Cannula 03/31/18 20:00 Nasal Cannula 5.0 03/31/18 18:15 98.0 97 18 126/87 (100) 98 Nasal Cannula 5.0 03/31/18 14:51 97.5 83 18 113/80 (91) 99 Nasal Cannula 5.0 03/31/18 14:38 Nasal Cannula 5.0 Vital Signs Date Time Temp Pulse Resp B/P (MAP) Pulse Ox O2 Delivery O2 Flow Rate FiO2 04/01/18 05:27 98.0 94 22 103/69 (80) 91 BiPAP/CPAP 03/31/18 21:20 5.0 I&O Intake and Output 04/01/18 07:00 Intake Total 1070 ml Balance 1070 ml Intake Oral 1070 ml # Voids 5 Current Medications: Meds: Current Medications Acetaminophen (Tylenol) 650 mg PRN Q6HRS PRN PO PAIN / TEMP; Start 03/31/18 at 14:30 Furosemide (Lasix) 20 mg DAILY PO ; Start 04/01/18 at 09:00 Levothyroxine Sodium (Synthroid) 112 mcg DAILY06 PO Last administered on at 05:18; Start 04/01/18 at 06:00 Morphine Sulfate (Ms Contin) 30 mg BID PO Last administered on 03/31/18at 20:51 ; Start 03/31/18 at 21:00 Potassium Chloride (Klor-Con) 20 meq DAILYWBKFT PO ; Start 04/01/18 at 09:00 Prednisone (Prednisone) 10 mg DAILY PO ; Start 04/01/18 at 09:00 Aspirin (Children'S Aspirin) 81 mg DAILYWBKFT PO ; Start 04/01/18 at 08:00 Non-Formulary Medication (Budesonide ) 0.5 mg RTBID NEB ; Start 03/31/18 at 20: 00; Stop 03/31/18 at 20:00; Status DC Vitamin D (Vitamin D3) 2,000 unit DAILY PO ; Start 04/01/18 at 09:00 Duloxetine HCl (Cymbalta) 60 mg DAILY PO ; Start 04/01/18 at 09:00 Enoxaparin Sodium (Lovenox 40mg Syringe) 40 mg Q12HR SQ Last administered on at 20:52; Start 03/31/18 at 21:00 Hydroxychloroquine Sulfate (Plaquenil) 200 mg BID PO Last administered on at 20:52; Start 03/31/18 at 21:00 Lorazepam (Ativan) 0.5 mg PRN TID PRN PO ANXIETY / AGITATION; Start 03/31/18 at 15:00 Metronidazole (Flagyl) 500 mg Q8HRS PO Last administered on 04/01/18at 05:18; Start 03/31/18 at 22:00 Multivitamins/ Calcium (Thera-M Plus) 1 tab DAILY PO ; Start 04/01/18 at 09:00 Pantoprazole Sodium (Protonix) 40 mg DAILYAC PO ; Start 04/01/18 at 07:30 Promethazine HCl/ Codeine (Phenergan With Codeine Oral Syrup) 5 ml PRN Q6HRS PRN PO COUGH Last administered on 04/01/18at 02:49; Start 03/31/18 at 15:00 Atorvastatin Calcium (Lipitor) 80 mg QHS PO Last administered on 03/31/18at 20: 51; Start 03/31/18 at 21:00 Zolpidem Tartrate (Ambien) 10 mg QHS PO Last administered on 03/31/18at 20:51; Start 03/31/18 at 21:00 Budesonide (Pulmicort) 0.5 mg RTBID NEB Last administered on 03/31/18at 21:30; Start 03/31/18 at 20:00 Lactobacillus Rhamnosus (Culturelle) 1 cap BID PO Last administered on at 20:51; Start 03/31/18 at 21:00 Active Scripts Active Klor-Con M20 (Potassium Chloride) 20 Meq Tab.er.prt 20 Meq PO DAILY Tylenol (Acetaminophen) 325 Mg Tablet 650 Mg PO PRN Q6HRS PRN 30 Days Loperamide (Loperamide Hcl) 2 Mg Capsule 2 Mg PO PRN QID PRN 30 Days Prednisone 10 Mg Tablet 10 Mg PO DAILY 90 Days Promethazine-Codeine Syrup (Promethazine Hcl/Codeine) 118 Ml Syrup 5 Ml PO PRN Q6HRS PRN 30 Days Furosemide 20 Mg Tablet 20 Mg PO DAILY 2 Days take for 2 days Enoxaparin Sodium 40 Mg/0.4 Ml Disp.syrin 40 Mg SQ Q12HR 14 Days Metronidazole 500 Mg Tablet 500 Mg PO Q8HRS 5 Days [place] 7.5-325 Tablet (Hydrocodone Bit/Acetaminophen) 1 Each Tablet 1 Tab PO PRN Q6HRS PRN For break through pain Budesonide 0.5 Mg/2 Ml Ampul.neb 0.5 Mg NEB RTBID Ambien (Zolpidem Tartrate) 10 Mg Tablet 1 Tab PO QHS Ms Contin (Morphine Sulfate) 30 Mg Tablet.er 1 Tab PO BID LAST DOSE GIVEN: DATE: TODAY TIME: AM NEXT DOSE DUE: DATE: TODAY TIME: PM Levothyroxine Sodium 112 Mcg Tablet 1 Tab PO DAILY LAST DOSE GIVEN: DATE: TODAY TIME: AM NEXT DOSE DUE: DATE: TOMORROW TIME: AM Lorazepam 0.5 Mg Tablet 1 Tab PO TID PRN Multi-Day Vitamins (Multivitamin) 1 Each Tablet 1 Tab PO DAILY Hydroxychloroquine Sulfate 200 Mg Tablet 1 Tab PO BID Crestor (Rosuvastatin Calcium) 20 Mg Tablet 1 Tab PO DAILY Reported Gabapentin 300 Mg Capsule Mucinex (Guaifenesin) 600 Mg Tablet.er 1 Tab PO BID LAST DOSE GIVEN: DATE: TODAY TIME: AM NEXT DOSE DUE: DATE: TODAY TIME: PM Vitamin D (Cholecalciferol (Vitamin D3)) 2,000 Unit Capsule 1 Cap PO DAILY LAST DOSE GIVEN: DATE: TIME: NEXT DOSE DUE: DATE: TIME: Protonix (Pantoprazole Sodium) 40 Mg Tablet.dr 1 Tab PO DAILY LAST DOSE GIVEN: DATE: TODAY TIME: AM NEXT DOSE DUE: DATE: TOMORROW TIME: AM Cymbalta (Duloxetine Hcl) 20 Mg Capsule. 3 Cap PO DAILY LAST DOSE GIVEN: DATE: TODAY TIME: AM NEXT DOSE DUE: DATE: TOMORROW TIME: AM Aspirin 81 Mg Tab.chew 1 Tab PO DAILY LAST DOSE GIVEN: DATE: TODAY TIME: AM NEXT DOSE DUE: DATE: TOMORROW TIME: AM I have reviewed the current psychotropics carefully including drug interactions. Risk benefit ratio favors no change other than as noted in my dictated progress note. Diagnosis: Problems: (1) Anxiety disorder (2) Major depressive disorder, recurrent episode (3) C. difficile colitis (4) Supraventricular tachycardia (5) COPD (chronic obstructive pulmonary disease) with acute bronchitis MIGUE ZAYAS MD Apr 01, 2018 06:04
[2018-04-01] MEDS: PANTOPRAZOLE 40 MG TABLET. PO SCH (07:43)
[2018-04-01] MEDS: ASPIRIN 81 MG TAB.CHEW PO SCH (07:43)
[2018-04-01] MEDS: CHOLECALCIFEROL (VITAMIN D3) 1,000 UNIT TABLET PO SCH (09:04)
[2018-04-01] MEDS: MULTIVITAMIN with MINERAL TABLET. PO SCH (09:04)
[2018-04-01] MEDS: LACTOBACILLUS RHAMNOSUS GG 1 CAPSULE. PO SCH ×2 (09:04→20:26)
[2018-04-01] MEDS: predniSONE 10 MG TABLET PO SCH (09:05)
[2018-04-01] MEDS: FUROSEMIDE 20 MG TABLET PO SCH (09:05)
[2018-04-01] MEDS: MORPHINE ER 30 MG TABLET.ER PO SCH ×2 (09:05→20:27)
[2018-04-01] MEDS: POTASSIUM CHLORIDE 20 MEQ TABLET.ER. PO SCH (09:05)
[2018-04-01] MEDS: DULoxetine HCL 60 MG CAPSULE.DR PO SCH (09:05)
[2018-04-01] MEDS: ENOXAPARIN 40 MG/0.4 ML SYRINGE. SQ SCH ×2 (09:06→20:28)
[2018-04-01] MEDS: HYDROXYCHLOROQUINE 200 MG TABLET PO SCH ×2 (09:14→20:28)
--- NOTE | 2018-04-01 09:56 | CONS ---
DATE OF CONSULTATION: 03/31/2018 PSYCHIATRIC CONSULTATION This is a late entry date of service 03/31/2018, covers elements not covered in my initial note. IDENTIFYING DATA: The patient is a 58-year-old male seen on the [facility] unit at [facility] for a psychiatric consult requested by Dr. Rey on account of the patient's "anger, depression, anxiety." The patient seen individually, discussed with nursing staff, reviewed the chart. CHIEF COMPLAINT: "I have had C. diff infection. I have pulmonary fibrosis. My health is deteriorating and that makes me more anxious, but I am doing alright on the medications that Dr. Rey has me on. I would not like to make any changes." HISTORY OF PRESENT ILLNESS: This note covers elements not covered in my initial note. The patient has a history of multiple medical problems including COPD, pulmonary fibrosis, status post pneumonia, recent C. diff infection, rheumatoid arthritis, supraventricular tachycardia, generalized muscle weakness. He was in the ICU, stabilized and then transferred to [facility] care for rehab. The patient states he has had symptoms of depression, anxiety, but attributes much of this to his physical deterioration. He states he has a very supportive and his daughter and her family have moved into their home recently as the daughter sold her own house. Nevertheless, he is handling all of this very well with the support of his family. He also has obstructive sleep apnea, morbid obesity, apnea, gout, vertigo, history of sudden cardiac and seasonal allergies, chronic pain, sleep apnea, chronic back pain, hypothyroidism, synovitis, pulmonary hypertension, probable. No psychotic symptoms, suicidal or homicidal ideation. No clear symptoms of bipolar disorder. PAST PSYCHIATRIC HISTORY: As above. DRUG ALLERGIES: SULFA, AZITHROMYCIN, OXYCODONE, ERYTHROMYCIN BASE. The patient is a full code. PAST SURGICAL HISTORY: Right ankle fracture, tonsillectomy, gastric bypass, arthroscopic exam, left knee cortisone injections. FAMILY HISTORY: Osteoarthritis on the mother's side of the family and psoriasis on the same side of the family. SOCIAL HISTORY: The patient is a former smoker. Denies alcohol use. Used to smoke cigars, quit several years ago. CURRENT PSYCHOTROPICS: Cymbalta 60 mg a day, Ativan 0.5 mg t.i.d. p.r.n. anxiety, Ambien 10 mg p.o. at bedtime. MENTAL STATUS EXAM: The patient was seen individually evening of 03/31/2018. He is well oriented. Speech is coherent, abstraction fair, computation reasonable, language function intact, attention span fair. Mood is slightly anxious, dysphoric, but understandably so given his general medical condition. No psychotic symptoms, suicidal or homicidal ideation. Intellect average. Insight good. Judgment intact to standard questioning. LABORATORY DATA: Reviewed. IMPRESSION: Major depressive disorder, recurrent, in partial remission; anxiety disorder, unspecified; adjustment disorder with depressed mood and anxiety in partial remission. Rest as above. RECOMMENDATION: I have discussed at length with the patient. For now, the patient feels he would prefer no changes in his psychotropics, but later of mood symptoms and anxiety persist perhaps the Cymbalta could be increased to 90 mg a day, which would be a more therapeutic dosage also to help with his pain management. Ativan and Ambien can remain unchanged for now. Dr. Rey, thank you for the opportunity to participate in your patient's care. We will follow with you. MIGUE ZAYAS MD DR: KEYUR/neetu JOB#: [id number] / [id number]
[2018-04-01] MEDS ORDERED: DOCUSATE SODIUM 100 MG CAPSULE PO PRN (10:30)
[2018-04-01] MEDS: BUDESONIDE 0.5 MG/2 ML NEBU NEB SCH ×2 (10:55→20:59)
--- NOTE | 2018-04-01 14:08 | HP ---
ADMIT DATE: 03/31/2018 HISTORY OF PRESENT ILLNESS: A 58-year-old male admitted to the swing bed, who recently has been in the ICU, came in with severe C. difficile colitis as well as possible pneumonia and exacerbation of COPD with acute respiratory distress and sepsis. In any case, the patient has made good progress there and was transferred here to the skilled unit for continued rehab as the patient needs continued physical therapy to help him with his overall situation with weakness. PAST MEDICAL HISTORY: Interstitial lung disease, rheumatoid arthritis seropositive, morbid obesity, obstructive sleep apnea, gout, generalized anxiety, vertigo, GERD, history of sudden cardiac , seasonal allergies, hyperlipidemia, chronic back pain, chronic continuous oxygen and has on multiple immunosuppressive drugs, hypothyroidism and pulmonary hypertension. MEDICATIONS: Hydroxychloroquine 200 mg daily, Crestor 20 mg a day, hydrocodone 7.5 mg, MS Contin 30 mg b.i.d., gabapentin 300 b.i.d., Cymbalta 60 mg daily, lorazepam 0.5 p.r.n., Ambien 10 mg, Protonix 40 mg, prednisone 40, levothyroxine 112 mcg, vitamin D. ALLERGIES: SULFA, SULFONAMIDE, ANTIBIOTICS AZITHROMYCIN, and PERCOCET. The patient is a full code. PAST SURGICAL HISTORY: Right ankle fracture, tonsillectomy, gastric bypass, arthroscopic exam of the left knee, cortisone injections. FAMILY HISTORY: Maternal with arthritis and psoriasis. SOCIAL HISTORY: The patient is a former smoker. Denies alcohol. Used to smoke cigars. Other than that, the patient is negative. REVIEW OF SYSTEMS: The patient is still feeling somewhat weak, but much improved from when he first came in where he was having explosive diarrhea. PHYSICAL EXAMINATION: GENERAL: This is a pleasant gentleman, very congenial. VITAL SIGNS: Blood pressure 113/80, respiratory rate 18, pulse 83, afebrile, oxygen saturation 99% on 5 liters. HEENT: The patient's head was atraumatic, normocephalic. Eyes: PERRLA without jaundice. Mouth and throat were normal. NECK: Supple, no JVD or thyromegaly. LUNGS: Diminished throughout, but better movement of air, and he has some crackles noted in the bases. CARDIOVASCULAR: Regular sinus rhythm. ABDOMEN: Soft, protuberant, nontender. No rebound or guarding. Positive bowel sounds. No hepatosplenomegaly noted. EXTREMITIES: No clubbing or cyanosis, trace edema. NEUROLOGIC: At baseline. IMPRESSION: Still rehabilitating from Clostridium difficile colitis, pneumonia of unspecified etiology, interstitial lung disease, seropositive rheumatoid arthritis. PLAN: Continue with present drug regimen. We will make further evaluation on him as indicated. Continue with rehab, PT, OT, and antibiotic. SANDRA NEGRETE MD DR: RAMONA/neetu JOB#: [id number] / [id number]
[2018-04-01 18:30] VITALS: BP 110/63
[2018-04-01] MEDS: ATORVASTATIN CALCIUM 20 MG TABLET PO SCH (20:27)
[2018-04-01] MEDS: ZOLPIDEM 5 MG TABLET. PO SCH (20:30)
[2018-04-02] MEDS: metroNIDAZOLE 500 MG TABLET PO SCH ×3 (06:17→21:02)
[2018-04-02] MEDS: LEVOTHYROXINE 112 MCG TABLET PO SCH (06:17)
[2018-04-02 06:44] VITALS: BP 143/91
[2018-04-02] MEDS: ASPIRIN 81 MG TAB.CHEW PO SCH (08:21)
[2018-04-02] MEDS: PANTOPRAZOLE 40 MG TABLET. PO SCH (08:21)
[2018-04-02] MEDS: POTASSIUM CHLORIDE 20 MEQ TABLET.ER. PO SCH (08:28)
[2018-04-02] MEDS: LACTOBACILLUS RHAMNOSUS GG 1 CAPSULE. PO SCH ×2 (09:03→21:00)
[2018-04-02] MEDS: HYDROXYCHLOROQUINE 200 MG TABLET PO SCH ×2 (09:03→21:01)
[2018-04-02] MEDS: MULTIVITAMIN with MINERAL TABLET. PO SCH (09:03)
[2018-04-02] MEDS: MORPHINE ER 30 MG TABLET.ER PO SCH ×2 (09:04→21:00)
[2018-04-02] MEDS: FUROSEMIDE 20 MG TABLET PO SCH (09:04)
[2018-04-02] MEDS: predniSONE 10 MG TABLET PO SCH (09:04)
[2018-04-02] MEDS: DULoxetine HCL 60 MG CAPSULE.DR PO SCH (09:04)
[2018-04-02] MEDS: ENOXAPARIN 40 MG/0.4 ML SYRINGE. SQ SCH ×2 (09:05→20:59)
[2018-04-02] MEDS: CHOLECALCIFEROL (VITAMIN D3) 1,000 UNIT TABLET PO SCH (09:05)
[2018-04-02 10:15] LABS: ALBUMIN 2.2 g/dL (3.4-5.0); ALBUMIN/GLOBULIN RATIO 0.6 (1.0-1.7); CALCIUM 8.3 mg/dL (8.5-10.1); CREATININE 1.2 mg/dL (0.7-1.3); GFR 61.8; POTASSIUM 3.6 mmol/L (3.5-5.1); TOTAL BILIRUBIN 0.3 mg/dL (0.2-1.0); TOTAL PROTEIN 6.1 g/dL (6.4-8.2)
[2018-04-02] MEDS: BUDESONIDE 0.5 MG/2 ML NEBU NEB SCH ×2 (10:50→20:28)
[2018-04-02 18:29] VITALS: BP 116/75
[2018-04-02] MEDS: PROMETH/CODEINE 6.25/10MG 5 ML SYRUP. PO PRN (20:59)
[2018-04-02] MEDS: ATORVASTATIN CALCIUM 20 MG TABLET PO SCH (21:00)
[2018-04-02] MEDS: ZOLPIDEM 5 MG TABLET. PO SCH (21:00)
[2018-04-03] MEDS: PROMETH/CODEINE 6.25/10MG 5 ML SYRUP. PO PRN ×2 (04:37→14:30)
[2018-04-03 04:53] VITALS: BP 144/82
[2018-04-03] MEDS: LEVOTHYROXINE 112 MCG TABLET PO SCH (05:46)
[2018-04-03] MEDS: metroNIDAZOLE 500 MG TABLET PO SCH ×3 (05:46→22:30)
[2018-04-03] MEDS: POTASSIUM CHLORIDE 20 MEQ TABLET.ER. PO SCH (07:59)
[2018-04-03] MEDS: ASPIRIN 81 MG TAB.CHEW PO SCH (07:59)
[2018-04-03] MEDS: PANTOPRAZOLE 40 MG TABLET. PO SCH (07:59)
[2018-04-03] MEDS: DULoxetine HCL 60 MG CAPSULE.DR PO SCH (08:00)
[2018-04-03] MEDS: predniSONE 10 MG TABLET PO SCH (08:00)
[2018-04-03] MEDS: MULTIVITAMIN with MINERAL TABLET. PO SCH (08:00)
[2018-04-03] MEDS: HYDROXYCHLOROQUINE 200 MG TABLET PO SCH ×2 (08:00→21:09)
[2018-04-03] MEDS: CHOLECALCIFEROL (VITAMIN D3) 1,000 UNIT TABLET PO SCH (08:00)
[2018-04-03] MEDS: FUROSEMIDE 20 MG TABLET PO SCH (08:00)
[2018-04-03] MEDS: LACTOBACILLUS RHAMNOSUS GG 1 CAPSULE. PO SCH ×2 (08:00→21:07)
[2018-04-03] MEDS: ENOXAPARIN 40 MG/0.4 ML SYRINGE. SQ SCH ×2 (08:01→21:07)
[2018-04-03] MEDS: MORPHINE ER 30 MG TABLET.ER PO SCH ×2 (08:01→21:08)
[2018-04-03] MEDS: BUDESONIDE 0.5 MG/2 ML NEBU NEB SCH ×2 (11:04→20:00)
[2018-04-03 18:04] VITALS: BP 120/73
[2018-04-03] MEDS: ZOLPIDEM 5 MG TABLET. PO SCH ×2 (21:09→22:30)
[2018-04-03] MEDS: ATORVASTATIN CALCIUM 20 MG TABLET PO SCH (21:09)
[2018-04-04] MEDS: LEVOTHYROXINE 112 MCG TABLET PO SCH (05:39)
[2018-04-04] MEDS: metroNIDAZOLE 500 MG TABLET PO SCH (05:39)
[2018-04-04 05:49] VITALS: BP 150/87
[2018-04-04] MEDS: PANTOPRAZOLE 40 MG TABLET. PO SCH (08:31)
[2018-04-04] MEDS: ASPIRIN 81 MG TAB.CHEW PO SCH (08:31)
[2018-04-04] MEDS: MULTIVITAMIN with MINERAL TABLET. PO SCH (08:31)
[2018-04-04] MEDS: POTASSIUM CHLORIDE 20 MEQ TABLET.ER. PO SCH (08:32)
[2018-04-04] MEDS: CHOLECALCIFEROL (VITAMIN D3) 1,000 UNIT TABLET PO SCH (08:32)
[2018-04-04] MEDS: FUROSEMIDE 20 MG TABLET PO SCH (08:32)
[2018-04-04] MEDS: DULoxetine HCL 60 MG CAPSULE.DR PO SCH (08:32)
[2018-04-04] MEDS: MORPHINE ER 30 MG TABLET.ER PO SCH (08:32)
[2018-04-04] MEDS: HYDROXYCHLOROQUINE 200 MG TABLET PO SCH (08:32)
[2018-04-04] MEDS: LACTOBACILLUS RHAMNOSUS GG 1 CAPSULE. PO SCH (08:32)
[2018-04-04] MEDS: predniSONE 10 MG TABLET PO SCH (08:32)
[2018-04-04] MEDS: ENOXAPARIN 40 MG/0.4 ML SYRINGE. SQ SCH (08:33)
[2018-04-04] MEDS: BUDESONIDE 0.5 MG/2 ML NEBU NEB SCH (09:23)
[2018-04-04] MEDS ORDERED: ROFLUMILAST 500 MCG TABLET PO SCH (10:00)
[2018-04-04] MEDS ORDERED: FUROSEMIDE 20 MG TABLET PO SCH (10:00)
[2018-04-04] MEDS ORDERED: ROFL500T7 PO (10:43)
[2018-04-04] MEDS ORDERED: PRED20TA PO (10:43)
[2018-04-04] MEDS ORDERED: IPRA3AMP29 NEB (10:43)
[2018-04-04] MEDS ORDERED: DOCU-109 PO (10:43)
[2018-04-04] MEDS ORDERED: LACT1CAP19 PO (10:43)
[2018-04-04] MEDS ORDERED: METR-84 PO (10:43)
[2018-04-04] MEDS ORDERED: IPRATRPIUM/ALBUTEROL 0.5/2.5MG 3 ML NEBU. NEB SCH (12:00)
[2018-04-05] MEDS ORDERED: predniSONE 20 MG TABLET PO SCH (09:00)
[2018-04-05] MEDS ORDERED: FURO40TA4 PO (11:51)
[2018-04-05] MEDS ORDERED: ROFL500T7 PO (11:51)
[2018-04-05] MEDS ORDERED: PRED20TA PO (11:51)
[2018-04-05] MEDS ORDERED: POTA20TA4 PO (11:51)
[2018-04-05] MEDS ORDERED: ZOLP10TA PO (11:51)
[2018-04-05] MEDS ORDERED: HYDR-3166 PO (11:51)
[2018-04-05] MEDS ORDERED: LORA0.5T PO (11:51)
[2018-04-05] MEDS ORDERED: PROM118S5 PO (11:51)
[2018-04-05] MEDS ORDERED: LACT1CAP19 PO (11:51)
[2018-04-05] MEDS ORDERED: MORP30TA83 PO (11:51)
== END 2018-04-04 10:50 | disposition short-term general hospital (02) | DRG 371 ==
LOC: LND 12:40
PROVIDERS: ADMIT Family Medicine; ATTEND Family Medicine
DX: A04.72 Enterocolitis due to Clostridium difficile, not specified as recurrent (principal); J18.9 Pneumonia, unspecified organism; I47.1 Supraventricular tachycardia; J44.0 Chronic obstructive pulmonary disease with (acute) lower respiratory infection; E03.9 Hypothyroidism, unspecified; E66.01 Morbid (severe) obesity due to excess calories; E78.5 Hyperlipidemia, unspecified; F33.41 Major depressive disorder, recurrent, in partial remission; F43.23 Adjustment disorder with mixed anxiety and depressed mood; F41.1 Generalized anxiety disorder; G47.33 Obstructive sleep apnea (adult) (pediatric); I27.20 Pulmonary hypertension, unspecified; J20.9 Acute bronchitis, unspecified; J84.10 Pulmonary fibrosis, unspecified; K21.9 Gastro-esophageal reflux disease without esophagitis; M05.9 Rheumatoid arthritis with rheumatoid factor, unspecified; M10.9 Gout, unspecified; Z87.01 Personal history of pneumonia (recurrent); Z87.891 Personal history of nicotine dependence; Z98.84 Bariatric surgery status; G89.29 Other chronic pain; Z87.81 Personal history of (healed) traumatic fracture; Z79.899 Other long term (current) drug therapy; Z88.2 Allergy status to sulfonamides; Z88.8 Allergy status to other drugs, medicaments and biological substances
CPT/HCPCS: 36415; 80053; 94640; J1650; J7512; J7626; 97110; 97116; 97530

== ENCOUNTER 2018-04-04 10:55 | Inpatient (IN) | payer MEDICARE ==
[~2018-04-04] VITALS: Ht 180.3 cm; Wt 151.2 kg
[~2018-04-04 10:55] MED LIST changes: +ACET325T9 PO; +ENOX40DI3 SQ; +FURO20TA3 PO; +LACT1CAP19 PO; +LOPE2CAP PO; +METR-84 PO; +POTA20TA4 PO; +PRED-220 PO; +PRED20TA PO; +PROM118S5 PO; +ROFL500T7 PO
[2018-04-04 11:12] VITALS: BP 139/85
[2018-04-04] MEDS ORDERED: ACETAMINOPHEN 500 MG TABLET PO PRN (11:15)
[2018-04-04] MEDS ORDERED: LORazepam 0.5 MG TABLET PO PRN (11:15)
[2018-04-04] MEDS ORDERED: DOCUSATE SODIUM 100 MG CAPSULE PO PRN (11:15)
[2018-04-04] MEDS ORDERED: PROMETH/CODEINE 6.25/10MG 5 ML SYRUP. PEG PRN (11:15)
[2018-04-04] MEDS ORDERED: ACETAMINOPHEN 325 MG TABLET PO PRN (11:45)
[2018-04-04] MEDS ORDERED: PROMETHAZINE HCL PO PRN (11:45)
[2018-04-04] MEDS ORDERED: FUROSEMIDE 20 MG TABLET PO ONE (11:45)
[2018-04-04] MEDS ORDERED: CODEINE PO PRN (11:45)
[2018-04-04] MEDS ORDERED: LORAZEPAM PO PRN (11:45)
[2018-04-04] MEDS ORDERED: HYDROcodone/APAP 7.5/325MG 1 TAB TABLET PO PRN (11:45)
[2018-04-04] MEDS ORDERED: DOCUSATE SODIUM 100 MG PO PRN (11:45)
[2018-04-04 11:46] LABS: CALCIUM 8.5 mg/dL (8.5-10.1); CREATININE 1.2 mg/dL (0.7-1.3); GFR 61.8; POTASSIUM 3.7 mmol/L (3.5-5.1)
[2018-04-04] MEDS: IPRATRPIUM/ALBUTEROL 0.5/2.5MG 3 ML NEBU. NEB SCH ×3 (12:00→20:00)
[2018-04-04] MEDS ORDERED: predniSONE 10 MG TABLET PO ONE (12:00)
[2018-04-04] MEDS ORDERED: IPRATRPIUM/ALBUTEROL 0.5/2.5MG 3 ML NEBU. NEB SCH (12:00)
[2018-04-04] MEDS ORDERED: LOPERAMIDE 2 MG CAPSULE PO PRN (13:15)
[2018-04-04] MEDS ORDERED: DEXTROSE 50% 25 GM / 50ML DISP.SYRIN. IV PRN (13:15)
[2018-04-04] MEDS: metroNIDAZOLE 500 MG TABLET PO SCH ×2 (13:16→22:08)
[2018-04-04] MEDS ORDERED: METRONIDAZOLE 500 MG PO SCH (14:00)
[2018-04-04 14:54] VITALS: BP 135/80
[2018-04-04 15:05] VITALS: BP 135/80
[2018-04-04] MEDS: INSULIN LISPRO 300 UNITS/3 ML INSULN.PEN. SQ SCH (17:00)
[2018-04-04 19:15] VITALS: BP 130/81
[2018-04-04] MEDS ORDERED: NON FORMULARY ITEM (Budesonide 0.5 MG) NEB SCH (20:00)
[2018-04-04] MEDS: BUDESONIDE 0.5 MG/2 ML NEBU NEB SCH (20:06)
[2018-04-04] MEDS ORDERED: ZOLPIDEM 5 MG TABLET. PO SCH (21:00)
[2018-04-04] MEDS ORDERED: ATORVASTATIN CALCIUM 20 MG TABLET PO SCH (21:00)
[2018-04-04] MEDS ORDERED: HYDROXYCHLOROQUINE SULFATE PO SCH (21:00)
[2018-04-04] MEDS ORDERED: NON FORMULARY ITEM (Zolpidem Tartrate (Ambien) 1 TAB) PO SCH (21:00)
[2018-04-04] MEDS ORDERED: MORPHINE ER 30 MG TABLET.ER PO SCH (21:00)
[2018-04-04] MEDS ORDERED: ENOXAPARIN SODIUM 40 MG SQ SCH (21:00)
[2018-04-04] MEDS ORDERED: LACTOBACILLUS RHAMNOSUS GG 1 CAPSULE. PO SCH (21:00)
[2018-04-04] MEDS: MORPHINE ER 30 MG TABLET.ER PO SCH (22:08)
[2018-04-04] MEDS: LACTOBACILLUS RHAMNOSUS GG 1 CAPSULE. PO SCH (22:08)
[2018-04-04] MEDS: ENOXAPARIN 40 MG/0.4 ML SYRINGE. SQ SCH (22:09)
[2018-04-05 00:01] VITALS: BP 161/97
[2018-04-05] MEDS: IPRATRPIUM/ALBUTEROL 0.5/2.5MG 3 ML NEBU. NEB SCH ×2 (05:40→09:39)
[2018-04-05 05:55] VITALS: BP 149/76
[2018-04-05] MEDS ORDERED: LEVOTHYROXINE 112 MCG TABLET PO SCH ×2 (06:00→09:00)
[2018-04-05] MEDS: metroNIDAZOLE 500 MG TABLET PO SCH ×2 (06:18→13:52)
[2018-04-05] MEDS ORDERED: PANTOPRAZOLE 40 MG TABLET. PO SCH (07:30)
[2018-04-05] MEDS ORDERED: ASPIRIN 81 MG TAB.CHEW PO SCH (08:00)
[2018-04-05] MEDS ORDERED: POTASSIUM CHLORIDE 20 MEQ TABLET.ER. PO SCH ×2 (08:00→09:00)
[2018-04-05] MEDS: LACTOBACILLUS RHAMNOSUS GG 1 CAPSULE. PO SCH (08:31)
[2018-04-05] MEDS: MORPHINE ER 30 MG TABLET.ER PO SCH (08:33)
[2018-04-05] MEDS: INSULIN LISPRO 300 UNITS/3 ML INSULN.PEN. SQ SCH ×2 (08:36→12:00)
[2018-04-05] MEDS: ENOXAPARIN 40 MG/0.4 ML SYRINGE. SQ SCH (08:36)
--- NOTE | 2018-04-05 08:39 | RAD ---
CHEST PA LATERAL Clinical indications: Shortness of air COMPARISON: December 21, 2017 and March 27, 2018. Findings: Diffuse interstitial lung disease is again evident with small lung volumes. This may be seen with interstitial pulmonary fibrosis. No new lung consolidation or pleural effusion or pneumothorax is seen. The heart size, pulmonary vasculature, mediastinum and both naif are stable. Impression: Chronic interstitial pulmonary fibrosis. Electronically signed by: Sukhwinder Kessler MD (04/05/2018 8:36 AM) [facility]
[2018-04-05] MEDS ORDERED: FUROSEMIDE 20 MG TABLET PO SCH (09:00)
[2018-04-05] MEDS ORDERED: ASPIRIN PO SCH (09:00)
[2018-04-05] MEDS ORDERED: NON FORMULARY ITEM (Pantoprazole Sodium (Protonix) 1 TAB) PO SCH (09:00)
[2018-04-05] MEDS ORDERED: HYDROXYCHLOROQUINE 200 MG TABLET PO SCH (09:00)
[2018-04-05] MEDS ORDERED: DULoxetine HCL 60 MG CAPSULE.DR PO SCH (09:00)
[2018-04-05] MEDS ORDERED: NON FORMULARY ITEM (Cholecalciferol (Vitamin D3) (Vitamin D) 1 CAP) PO SCH (09:00)
[2018-04-05] MEDS ORDERED: NON FORMULARY ITEM (Multivitamin (Multi-Day Vitamins) 1 TAB) PO SCH (09:00)
[2018-04-05] MEDS ORDERED: NON FORMULARY ITEM (Rosuvastatin Calcium (Crestor) 1 TAB) PO SCH (09:00)
[2018-04-05] MEDS ORDERED: MULTIVITAMIN with MINERAL TABLET. PO SCH (09:00)
[2018-04-05] MEDS ORDERED: ROFLUMILAST 500 MCG TABLET PO SCH (09:00)
[2018-04-05] MEDS ORDERED: DULOXETINE HCL PO SCH (09:00)
[2018-04-05] MEDS ORDERED: FUROSEMIDE 40 MG TABLET PO SCH (09:00)
[2018-04-05] MEDS ORDERED: CHOLECALCIFEROL (VITAMIN D3) 1,000 UNIT TABLET PO SCH (09:00)
[2018-04-05] MEDS ORDERED: ROFLUMILAST 500 MCG PO SCH (09:00)
[2018-04-05] MEDS ORDERED: predniSONE 20 MG TABLET PO SCH ×2 (09:00)
[2018-04-05] MEDS: BUDESONIDE 0.5 MG/2 ML NEBU NEB SCH (09:38)
[2018-04-05] MEDS ORDERED: LORA0.5T PO (11:51)
[2018-04-05] MEDS ORDERED: LACT1CAP19 PO (11:51)
[2018-04-05] MEDS ORDERED: HYDR-3166 PO (11:51)
[2018-04-05] MEDS ORDERED: ZOLP10TA PO (11:51)
[2018-04-05] MEDS ORDERED: PRED20TA PO (11:51)
[2018-04-05] MEDS ORDERED: FURO40TA4 PO (11:51)
[2018-04-05] MEDS ORDERED: ROFL500T7 PO (11:51)
[2018-04-05] MEDS ORDERED: POTA20TA4 PO (11:51)
[2018-04-05] MEDS ORDERED: PROM118S5 PO (11:51)
[2018-04-05] MEDS ORDERED: MORP30TA83 PO (11:51)
[2018-04-05 12:43] VITALS: BP 151/85
--- NOTE | 2018-04-05 14:46 | HP ---
ADMIT DATE: 04/04/2018 HISTORY OF PRESENT ILLNESS: The patient is a 58-year-old gentleman who is in with skilled unit for rehabilitation mostly problem with C. difficile colitis, generalized weakness and debilitation. The patient became increasingly dyspneic. Oxygen saturation dropped down to 80% with minimal exertion. The patient was readmitted to the med/surg floor for rehabilitation and further aggressive pulmonary toilet as well as diuresis and further assessment on his situation there. The patient's x-ray itself did not show anything in particular, but the patient was documented dropped down in the 80 percentile, walking, probably moved more than 10-15 feet. The patient was admitted for IV medication and steroids increase as well as close monitoring. PAST MEDICAL HISTORY: Interstitial lung disease, rheumatoid arthritis, seropositive; morbid obesity, obstructive sleep apnea, gout, had a history of sudden cardiac , immunosuppressive drugs, hypothyroidism, pulmonary hypertension. PAST SURGICAL HISTORY: Right ankle fracture, tonsillectomy, gastric bypass, arthroscopic exam of knee, cortisone injections. He has been followed at for his lung disease. MEDICATIONS: Hydroxychloroquine 200 mg daily, Crestor 20 mg a day, hydrocodone 7.5 mg, MS Contin 30 mg b.i.d., gabapentin 300 b.i.d., Cymbalta 60 mg daily, lorazepam 0.5, Ambien 10, Protonix 40, prednisone 40 and Lasix 40. ALLERGIES: SULFA SULFONAMIDE ANTIBIOTICS, AZITHROMYCIN AND PERCOCET. The patient is full code. SOCIAL HISTORY: The patient denies smoking, alcohol or drug use. He was a former smoker, but has not smoked for many years. FAMILY HISTORY: Positive for maternal with arthritis and psoriasis. REVIEW OF SYSTEMS: As noted increased shortness of breath. Denies chest pain, abdominal pain, says bowels are much better. PHYSICAL EXAMINATION: GENERAL: This is a very pleasant gentleman. VITAL SIGNS: Blood pressure 140/80, respiratory rate 20, pulse 84 and temperature 98.1. He is on 5 liters and as noted with exertion dropped down in the low 80 percentile. HEENT: The patient's head was atraumatic, normocephalic. Eyes: PERRLA without jaundice. Mouth and throat were normal. NECK: Supple. LUNGS: Diminished throughout, rhonchi noted throughout. CARDIOVASCULAR: Regular sinus rhythm. ABDOMEN: Protuberant, soft, nontender, no rebound or guarding. Positive bowel sounds present. EXTREMITIES: No clubbing, cyanosis, pitting edema, but does have what might be considered to be lymphedema. The patient otherwise seems to be resting fairly comfortably. Baseline weight at admission was 323 pounds. PLAN: Otherwise continue to monitor the patient and adjust medications accordingly and make further evaluation on him as indicated for those results. BNP was elevated to 300. SANDRA NEGRETE MD DR: RAMONA/neetu JOB#: [id number] / [id number]
--- NOTE | 2018-04-05 19:53 | DS ---
DATE OF DISCHARGE: HOSPITAL COURSE: A 58-year-old gentleman, who was admitted from the skilled unit because of increased dyspnea with minimal exertion dropping down in the low 80 percentile range, acute respiratory distress. The patient was admitted, placed on aggressive diuresis as well as additional prednisone. The patient made excellent progress during his hospital stay and wanted to be felt strong enough to go home and recover there. His chest x-ray was unremarkable. He has slight elevation of his BNP of 301. Otherwise, his electrolytes were good and sugar was approximately 137. The patient otherwise made good progress during the rest of his hospitalization. There were no complications to the situation, and the patient made good progress. He was discharged home for followup as an outpatient. The patient will be discharged home. IMPRESSION: Acute respiratory distress, idiopathic pulmonary fibrosis, seropositive rheumatoid arthritis, morbid obesity, acute on top of chronic heart failure, stable; history of C. difficile colitis, under control; essential hypertension. PLAN: The patient will be discharged home on heart healthy diet, decreased activity, and follow up accordingly. SANDRA NEGRETE MD DR: RAMONA/neetu JOB#: [id number] / [id number]
== END 2018-04-05 16:30 | disposition home or self-care (01) | DRG 292 ==
LOC: LND 10:55 → 1 SOUTH 16:57
PROVIDERS: ADMIT Family Medicine; ATTEND Family Medicine
DX: I11.0 Hypertensive heart disease with heart failure (principal); Z68.42 Body mass index [BMI] 45.0-49.9, adult; E03.9 Hypothyroidism, unspecified; E66.01 Morbid (severe) obesity due to excess calories; G47.33 Obstructive sleep apnea (adult) (pediatric); M10.9 Gout, unspecified; I27.20 Pulmonary hypertension, unspecified; I50.9 Heart failure, unspecified; M05.9 Rheumatoid arthritis with rheumatoid factor, unspecified; R06.03 Acute respiratory distress; J84.112 Idiopathic pulmonary fibrosis; Z98.84 Bariatric surgery status; Z87.891 Personal history of nicotine dependence; Z86.19 Personal history of other infectious and parasitic diseases
CPT/HCPCS: 36415; 71046; 80048; 83880; 94640; J1650; J1815; J7512; J7626; 97110; 97530

== ENCOUNTER → 2018-07-07 | Outpatient (CLI) | payer MEDICARE ==
[~2018-07-07] MED LIST changes: +METR-34 PO; -METR-84 PO
== END | disposition home or self-care (01) ==
LOC: LAB 09:29
PROVIDERS: ATTEND Family Medicine
DX: R06.02 Shortness of breath (principal)
CPT/HCPCS: 36415; 83880

== ENCOUNTER → 2018-07-07 | Outpatient (CLI) | payer MEDICARE ==
[2018-07-07 10:04] LABS: BASO # 0.1 x10^3/uL (0.0-0.2); BASO % 1 % (0-3); EOS # 0.4 x10^3/uL (0.0-0.7); EOS % 5 % (0-3); HEMATOCRIT 34.6 % (39.0-53.0); HEMOGLOBIN 11.7 g/dL (13.0-17.5); LYMPH # 1.1 x10^3/uL (1.0-4.8); LYMPH % 14 % (24-48); MEAN CORPUSCULAR HEMOGLOBIN 32 pg (25-35); MEAN CORPUSCULAR HGB CONC 34 g/dL (31-37); MEAN CORPUSCULAR VOLUME 93 fL (79-100); MONO # 0.9 x10^3/uL (0.0-1.1); MONO % 12 % (0-9); NEUT # 5.5 x10^3uL (1.8-7.7); NEUT % 69 % (31-73); PLATELET COUNT 238 x10^3/uL (140-400); RED CELL DISTRIBUTION WIDTH 14.8 % (11.5-14.5); WHITE BLOOD COUNT 8.1 x10^3/uL (4.0-11.0)
[2018-07-07 10:06] LABS: ALBUMIN 3.5 g/dL (3.4-5.0); ALBUMIN/GLOBULIN RATIO 0.9 (1.0-1.7); C REACTIVE PROTEIN 22.6 mg/L (0-3.3); CALCIUM 8.8 mg/dL (8.5-10.1); CREATININE 1.5 mg/dL (0.7-1.3); GFR 47.7; POTASSIUM 3.1 mmol/L (3.5-5.1); TOTAL BILIRUBIN 0.4 mg/dL (0.2-1.0); TOTAL PROTEIN 7.4 g/dL (6.4-8.2)
[2018-07-07 11:07] LABS: SEDIMENTATION RATE 65 (0-15)
== END | disposition home or self-care (01) ==
LOC: LAB 09:20
PROVIDERS: ATTEND Internal Medicine
DX: M05.741 Rheumatoid arthritis with rheumatoid factor of right hand without organ or systems involvement (principal); M05.742 Rheumatoid arthritis with rheumatoid factor of left hand without organ or systems involvement; M25.50 Pain in unspecified joint; Z79.899 Other long term (current) drug therapy
CPT/HCPCS: 36415; 80053; 85025; 85651; 86140

== ENCOUNTER 2019-02-19 06:54 | Inpatient (IN) | payer MEDICARE ==
[~2019-02-19] VITALS: Ht 177.8 cm; Wt 168.4 kg
[2019-02-19] VITALS (14 sets, daily range): BP systolic 108–160; BP diastolic 62–108
[~2019-02-19 06:54] MED LIST changes: +OMEP20CA10 PO; -OMEP20CA9 PO
[2019-02-19] MEDS ORDERED: IPRATRPIUM/ALBUTEROL 0.5/2.5MG 3 ML NEBU. ONE (09:21)
[2019-02-19] MEDS ORDERED: BUDESONIDE 0.5 MG/2 ML NEBU ONE (09:22)
[2019-02-19] MEDS: IPRATRPIUM/ALBUTEROL 0.5/2.5MG 3 ML NEBU. NEB SCH ×3 (09:25→21:54)
[2019-02-19 09:30] LABS: BGAS PH 7.41 (7.35-7.46)
[2019-02-19] MEDS ORDERED: ONDANSETRON ODT 4 MG TAB.RAPDIS PO PRN (09:30)
[2019-02-19] MEDS ORDERED: HYDROcodone/APAP 7.5/325MG 1 TAB TABLET PO PRN (09:30)
[2019-02-19] MEDS ORDERED: FUROSEMIDE INJ 100 MG in IV NORMAL SALINE 100ML 90 ML IV SCH (09:30)
[2019-02-19] MEDS ORDERED: LORazepam 0.5 MG TABLET PO PRN (09:30)
[2019-02-19] MEDS ORDERED: DOCUSATE SODIUM 100 MG CAPSULE PO PRN (09:30)
[2019-02-19] MEDS ORDERED: VANCOMYCIN PER PHARMACY MC PRN (09:30)
[2019-02-19] MEDS ORDERED: ACETAMINOPHEN 325 MG TABLET PO PRN ×2 (09:30→12:45)
[2019-02-19 09:36] LABS: BASO % 0 % (0-3); EOS % 0 % (0-3); HEMATOCRIT 33.5 % (39.0-53.0); HEMOGLOBIN 10.8 g/dL (13.0-17.5); LYMPH # 0.8 x10^3/uL (1.0-4.8); LYMPH % 5 % (24-48); MEAN CORPUSCULAR HEMOGLOBIN 31 pg (25-35); MEAN CORPUSCULAR HGB CONC 32 g/dL (31-37); MEAN CORPUSCULAR VOLUME 94 fL (79-100); MONO # 1.3 x10^3/uL (0.0-1.1); MONO % 8 % (0-9); NEUT # 13.8 x10^3uL (1.8-7.7); NEUT % 87 % (31-73); PLATELET COUNT 271 x10^3/uL (140-400); RED BLOOD COUNT 3.55 x10^6/uL (4.30-5.70); RED CELL DISTRIBUTION WIDTH 13.6 % (11.5-14.5); WHITE BLOOD COUNT 15.9 x10^3/uL (4.0-11.0)
[2019-02-19] MEDS: methylPREDNISolone SOD SUCC PF 40 MG/ML VIAL. IV SCH ×2 (09:40→21:38)
[2019-02-19 09:45] LABS: ALBUMIN 2.7 g/dL (3.4-5.0); ALBUMIN/GLOBULIN RATIO 0.6 (1.0-1.7); CALCIUM 8.4 mg/dL (8.5-10.1); CREATININE 1.4 mg/dL (0.7-1.3); GFR 51.5; POTASSIUM 3.9 mmol/L (3.5-5.1); TOTAL BILIRUBIN 0.6 mg/dL (0.2-1.0); TOTAL PROTEIN 7.4 g/dL (6.4-8.2)
--- NOTE | 2019-02-19 09:48 | RAD ---
CHEST AP ONLY History: Shortness of breath Comparison: April 04, 2018 Findings: Single view of the chest is submitted. Pericardial cardiac silhouette is similar. There is again some interstitial opacity bilaterally. No pneumothorax is identified. There is mild right perihilar opacity somewhat increased. There is some increased hazy opacity of the mid to inferior left hemithorax. There is also more confluent increased opacity in the right suprahilar region. Impression: 1. There is again some interstitial opacity bilaterally likely component of interstitial lung disease, likely superimposed mild right perihilar opacity and also hazy opacity of the mid to inferior left hemithorax which may be superimposed infiltrate or edema. There is also increased right suprahilar opacity which may be due to more confluent infiltrate for which attention on short-term follow-up advised. Electronically signed by: Christos Matson MD (02/19/2019 9:45 AM) [id number]
[2019-02-19] MEDS ORDERED: FUROSEMIDE 40 MG/4 ML VIAL IVP ONE (10:15)
[2019-02-19] MEDS: PIPERACILLIN/TAZOBACTAM 4.5 GM in IV NORMAL SALINE 50ML 50 ML IV SCH ×2 (10:21→18:32)
[2019-02-19] MEDS ORDERED: VANCOMYCIN 2 GM in IV NORMAL SALINE 500ML 500 ML IV ONE (11:00)
[2019-02-19 11:23] LABS: BILIRUBIN,URINE NEG (NEG); CLARITY,URINE HAZY; COLOR,URINE YELLOW; GLUCOSE,URINE NEG (NEG)
[2019-02-19 11:24] LABS: NITRITE,URINE NEG (NEG); UROBILINOGEN,URINE 1 mg/dL (0.2 mg/dL)
[2019-02-19 11:26] LABS: AMORPHOUS SEDIMENT,UR PRESENT /HPF; BACTERIA,URINE 0 /HPF (0-FEW); HYALINE CASTS, URINE MANY /HPF; RBC,URINE 20-40 /HPF (0-2); SQUAMOUS EPITHELIAL CELL,UR FEW /LPF
[2019-02-19 11:55] LABS: % BANDS 22 % (0-9); % EOS 2 % (0-5); % LYMPHS 5 % (24-48); % MONOS 9 % (0-10); % SEGS 62 % (35-66)
[2019-02-19 11:57] LABS: PLT ESTIMATE ADEQUATE (ADEQUATE); POLYCHROMASIA SLIGHT
--- NOTE | 2019-02-19 12:29 | EKG ---
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
[2019-02-19] MEDS ORDERED: ONDANSETRON PF 4 MG/2 ML VIAL. IV PRN (12:45)
[2019-02-19] MEDS ORDERED: PROCHLORPERAZINE 10 MG/2 ML VIAL. IV PRN (12:45)
[2019-02-19] MEDS: GABAPENTIN 300 MG CAPSULE. PO SCH ×2 (14:00→21:38)
[2019-02-19] MEDS: MEROPENEM 1 GM in IV NORMAL SALINE 100ML 100 ML IV SCH ×2 (14:25→21:34)
[2019-02-19 14:32] LABS: INFLUENZA A PATIENT NEGATIVE (NEGATIVE); INFLUENZA B PATIENT NEGATIVE (NEGATIVE)
--- NOTE | 2019-02-19 18:42 | HP ---
ADMIT DATE: 02/19/2019 HISTORY OF PRESENT ILLNESS: A 59-year-old male came in with acute respiratory failure. The patient for the last several weeks, has not been feeling well with increased shortness of breath, finally came in. He was a direct admit as he was extremely short of breath and oxygen saturation at home was down in the 70 percentile range, required 15 liters to get him up into the 90 range. His recent PCR respiratory had showed that the patient had Haemophilus influenza. His procalcitonin level was elevated, consistent with the fact that the patient had a respiratory tract infection. The patient denies chest pain, but had marked shortness of breath, marked dyspnea. The patient also had confluent infiltrates, for which the probable pneumonia was also noted as well. The patient was admitted for acute respiratory failure secondary to a respiratory infection of Haemophilus influenzae. PAST MEDICAL HISTORY: Cardiac disorders. DICTATION ENDS HERE SANDRA NEGRETE MD DR: RAMONA/neetu JOB#: [id number] / [id number]
--- NOTE | 2019-02-19 20:40 | HP ---
ADMIT DATE: 02/19/2019 HISTORY OF PRESENT ILLNESS: A 59-year-old male with long history of pulmonary fibrosis, for the last few weeks has become increasingly short of breath, increasingly dyspneic, unable to move out of bed. The patient came in with acute respiratory failure. Oxygen saturation was in the 70 percentile range and required 15 liters per nasal cannula to get his oxygen to close to 90%. A recent PCR within the last few days demonstrated the patient had Haemophilus influenzae. The patient denies chest pain, but had some significant shortness of breath and increased respiratory effort range up into 32 as well as a pulse greater than 100. Technically believe it would be in the element of sepsis with a heart rate over 100, respiratory rate of 32. The patient was admitted for further evaluation of aggressive pulmonary toilet, IV antibiotic therapy and further assessment on this patient's multiple medical problems. The patient has a history of congestive heart failure, acute cholesterolemia, respiratory disorders, chronic bronchitis, interstitial lung disease, pulmonary fibrosis ____ Pulmonology for that. He has had multiple bouts of pneumonia, sleep apnea, continuous oxygen saturation. He has had problems with C. difficile, obesity, gastroesophageal reflux, musculoskeletal disorders of rheumatoid arthritis, on immunosuppressive therapy and MRAD, osteoarthritis, gout, orthopedic surgery, endocrine disorders, hypothyroidism ____ severe depression. His immunizations of tetanus and influenza, pneumococcal vaccinations are all up-to-date. FAMILY HISTORY: Mother , unknown causes. ALLERGIES: The patient has allergies to SULFUR ERYTHROMYCIN BASED and OXYCODONE. The patient is a full code. HOME MEDICATIONS: Include that of respiratory therapy, DuoNeb treatments 4 times a day, hydroxychloroquine 200 mg b.i.d., Crestor 20 mg a day, aspirin 81, hydrocodone ____ p.r.n., morphine, MS Contin, Tylenol, gabapentin 1 mg t.i.d., duloxetine 60 mg daily, lorazepam 0.5 mg daily, Zyloprim, Ambien, Klor-Con 20 mEq daily, furosemide. The patient otherwise had some stool softeners and bowel rest. SOCIAL HISTORY: The patient denies smoking, alcohol or drug use. Lives at home. Full code. REVIEW OF SYSTEMS: Denies any headaches or visual changes. The patient denies chest pain, but has marked shortness of breath and marked dyspnea with minimal exertion. The patient otherwise denies abdominal pain, mild nausea. The patient otherwise denies any problem with bowels or bladder and neurologically baseline except for his depression. PHYSICAL EXAMINATION: VITAL SIGNS: The patient's blood pressure 133/82, respiratory rate up to 32 and pulse up to 110 or so. Oxygen saturation on 15 liters was in the low 90s. GENERAL: The patient otherwise is a pleasant gentleman. HEENT: Atraumatic, normocephalic. Eyes: PERRLA without jaundice. The mouth and throat were normal. NECK: Supple, no JVD or thyromegaly. LUNGS: Diminished throughout, poor movement of air. Crackles throughout the upper lobes, all 5 lobes. CARDIOVASCULAR: Tachycardic. ABDOMEN: The patient's abdomen is protuberant, soft, nontender, positive bowel sounds. EXTREMITIES: No clubbing, cyanosis. Trace edema noted. NEUROLOGIC: The patient was alert and oriented x 3. Speech fluent, spontaneous, appropriate. Cranial nerves 2-12 grossly intact, although using some mouth breathing as he was unable to get enough air. LABORATORY DATA: White count approximately 16,000, hemoglobin 10 and 35, bands were high at 22. The patient's chemistries showed a blood sugar of 133. BNP of 866. His procalcitonin was 0.7. Sodium and potassium 135 and 3.9, BUN and creatinine 10 and 1.4. The patient's albumin low at 2.7. Coags showed an elevated coagulation. The patient placed on Lovenox. The patient's serology for influenza was negative as well as mycoplasma serology, but PCR as noted did show H. influenza. PLAN: The patient will be treated with meropenem recommended by pharmacy to cover for his H. flu as well as sepsis, aggressive pulmonary toilet, steroids and make further evaluation on him as indicated and adjust his medications as noted. SANDRA NEGRETE MD DR: RAMONA/neetu JOB#: [id number] / [id number]
[2019-02-19] MEDS: ENOXAPARIN ** NOTE DOSE ** SYRINGE SQ SCH (21:38)
[2019-02-19] MEDS: MORPHINE ER 30 MG TABLET.ER PO SCH (21:38)
[2019-02-19] MEDS: HYDROXYCHLOROQUINE 200 MG TABLET PO SCH (21:38)
[2019-02-19] MEDS: LACTOBACILLUS RHAMNOSUS GG 1 CAPSULE. PO SCH (21:38)
[2019-02-19] MEDS: BUDESONIDE 0.5 MG/2 ML NEBU NEB SCH (21:54)
[2019-02-19] MEDS ORDERED: VANCOMYCIN 2 GM in IV NORMAL SALINE 500ML 500 ML IV SCH (23:00)
[2019-02-20] VITALS (15 sets, daily range): BP systolic 130–168; BP diastolic 80–105
[2019-02-20] MEDS: PIPERACILLIN/TAZOBACTAM 4.5 GM in IV NORMAL SALINE 50ML 50 ML IV SCH ×4 (00:01→18:04)
[2019-02-20] MEDS: IPRATRPIUM/ALBUTEROL 0.5/2.5MG 3 ML NEBU. NEB SCH ×4 (05:26→20:54)
[2019-02-20] MEDS: LEVOTHYROXINE 112 MCG TABLET PO SCH (05:35)
[2019-02-20] MEDS: methylPREDNISolone SOD SUCC PF 40 MG/ML VIAL. IV SCH ×2 (05:35→20:01)
[2019-02-20] MEDS: MEROPENEM 1 GM in IV NORMAL SALINE 100ML 100 ML IV SCH ×3 (06:22→21:58)
[2019-02-20 06:57] LABS: BASO % 0 % (0-3); EOS % 0 % (0-3); HEMATOCRIT 36.6 % (39.0-53.0); HEMOGLOBIN 11.9 g/dL (13.0-17.5); LYMPH # 0.5 x10^3/uL (1.0-4.8); LYMPH % 5 % (24-48); MEAN CORPUSCULAR HEMOGLOBIN 32 pg (25-35); MEAN CORPUSCULAR HGB CONC 33 g/dL (31-37); MEAN CORPUSCULAR VOLUME 98 fL (79-100); MONO # 0.3 x10^3/uL (0.0-1.1); MONO % 3 % (0-9); NEUT # 9.9 x10^3uL (1.8-7.7); NEUT % 92 % (31-73); PLATELET COUNT 231 x10^3/uL (140-400); RED BLOOD COUNT 3.73 x10^6/uL (4.30-5.70); RED CELL DISTRIBUTION WIDTH 14.1 % (11.5-14.5); WHITE BLOOD COUNT 10.8 x10^3/uL (4.0-11.0)
[2019-02-20 07:04] LABS: CALCIUM 8.5 mg/dL (8.5-10.1); CREATININE 1.5 mg/dL (0.7-1.3); GFR 47.6; MAGNESIUM 2.2 mg/dL (1.8-2.4); POTASSIUM 3.6 mmol/L (3.5-5.1)
[2019-02-20] MEDS ORDERED: PANTOPRAZOLE 40 MG TABLET. PO SCH (07:30)
[2019-02-20] MEDS: ROFLUMILAST 500 MCG TABLET PO SCH (07:57)
[2019-02-20] MEDS: ENOXAPARIN ** NOTE DOSE ** SYRINGE SQ SCH ×2 (07:57→20:01)
[2019-02-20] MEDS: PANTOPRAZOLE 40 MG TABLET. PO SCH (07:57)
[2019-02-20] MEDS: DULoxetine HCL 60 MG CAPSULE.DR PO SCH (07:57)
[2019-02-20] MEDS: LACTOBACILLUS RHAMNOSUS GG 1 CAPSULE. PO SCH ×2 (07:57→20:02)
[2019-02-20] MEDS: ASPIRIN 81 MG TAB.CHEW PO SCH (07:57)
[2019-02-20] MEDS: GABAPENTIN 300 MG CAPSULE. PO SCH ×3 (07:57→20:02)
[2019-02-20] MEDS: MORPHINE ER 30 MG TABLET.ER PO SCH ×2 (07:58→20:04)
[2019-02-20] MEDS: HYDROXYCHLOROQUINE 200 MG TABLET PO SCH ×2 (07:59→20:01)
[2019-02-20] MEDS: BUDESONIDE 0.5 MG/2 ML NEBU NEB SCH ×2 (11:48→20:54)
[2019-02-20] MEDS: buPROPion 100 MG TABLET PO SCH (13:07)
[2019-02-20] MEDS: FUROSEMIDE 40 MG TABLET PO SCH (14:17)
[2019-02-20] MEDS ORDERED: HYDROcodone/CHLORPHEN POLIS 5 ML SUS.ER.12H PO PRN (19:00)
[2019-02-20] MEDS: PROMETH/CODEINE 6.25/10MG 5 ML SYRUP. PO PRN (20:00)
[2019-02-21] VITALS (14 sets, daily range): BP systolic 121–175; BP diastolic 74–99
[2019-02-21] MEDS: PIPERACILLIN/TAZOBACTAM 4.5 GM in IV NORMAL SALINE 50ML 50 ML IV SCH ×4 (00:01→18:28)
--- NOTE | 2019-02-21 01:40 | PN ---
DATE: HISTORY OF PRESENT ILLNESS: A 59-year-old male came in with acute respiratory failure with a respiratory infection of Haemophilus influenza. The patient is doing much better this morning. He is making good progress and diuresed 500 mL. Ellison catheter was placed. He is on antibiotic therapy IV for the H. flu. He says he is feeling better. He does look stronger overall. PHYSICAL EXAMINATION: VITAL SIGNS: Show improvement. Blood pressure 154/99, respiratory rate 18, pulse 84 and afebrile, still on 15 liters of oxygen, Trilogy and BiPAP in place, but he is at almost 100%, so it may need to be decreased. GENERAL: In any case, patient is alert and oriented x 3. Speech fluent, spontaneous, appropriate. Cranial nerves 2-12 grossly intact. LUNGS: Show some crackles down in the bases, but markedly improved from yesterday. CARDIOVASCULAR: Regular sinus rhythm. ABDOMEN: Soft, protuberant. EXTREMITIES: No clubbing, cyanosis, just trace edema noted. NEUROLOGIC: The patient is doing much better. LABORATORY DATA: White count has come down as well as his differential. The patient did have an elevated procalcitonin. IMPRESSION: Sepsis with acute respiratory failure with Haemophilus influenza, obesity, pulmonary fibrosis, moderate protein malnutrition, mild congestive heart failure, elevated D-dimer, he had this before. He has had repeated scans, which were negative for clots, but may need to repeat that he is on Lovenox though therapeutically. Influenza and mycoplasma were negative. PLAN: Continue on IV antibiotic therapy, aggressive pulmonary toilet and start some PT, OT. We will start him on some Wellbutrin along with his Cymbalta to see if this does give him little bit more energy for activity and also start some PT, OT on him as well. SANDRA NEGRETE MD DR: RAMONA/neetu JOB#: [id number] / [id number]
[2019-02-21] MEDS: MEROPENEM 1 GM in IV NORMAL SALINE 100ML 100 ML IV SCH ×3 (05:34→21:43)
[2019-02-21] MEDS: IPRATRPIUM/ALBUTEROL 0.5/2.5MG 3 ML NEBU. NEB SCH ×4 (05:41→22:13)
[2019-02-21] MEDS: PROMETH/CODEINE 6.25/10MG 5 ML SYRUP. PO PRN (06:16)
[2019-02-21] MEDS: LEVOTHYROXINE 112 MCG TABLET PO SCH (06:16)
[2019-02-21 06:35] LABS: CALCIUM 8.2 mg/dL (8.5-10.1); CREATININE 1.7 mg/dL (0.7-1.3); GFR 41.2; POTASSIUM 3.7 mmol/L (3.5-5.1)
[2019-02-21] MEDS: ROFLUMILAST 500 MCG TABLET PO SCH (08:02)
[2019-02-21] MEDS: buPROPion 100 MG TABLET PO SCH (08:03)
[2019-02-21] MEDS: HYDROXYCHLOROQUINE 200 MG TABLET PO SCH ×2 (08:03→21:42)
[2019-02-21] MEDS: GABAPENTIN 300 MG CAPSULE. PO SCH ×3 (08:04→21:42)
[2019-02-21] MEDS: methylPREDNISolone SOD SUCC PF 40 MG/ML VIAL. IV SCH ×2 (08:04→21:40)
[2019-02-21] MEDS: PANTOPRAZOLE 40 MG TABLET. PO SCH (08:04)
[2019-02-21] MEDS: LACTOBACILLUS RHAMNOSUS GG 1 CAPSULE. PO SCH ×2 (08:04→21:40)
[2019-02-21] MEDS: DULoxetine HCL 60 MG CAPSULE.DR PO SCH (08:05)
[2019-02-21] MEDS: FUROSEMIDE 40 MG TABLET PO SCH (08:05)
[2019-02-21] MEDS: MORPHINE ER 30 MG TABLET.ER PO SCH ×2 (08:05→21:41)
[2019-02-21] MEDS: ENOXAPARIN ** NOTE DOSE ** SYRINGE SQ SCH ×2 (08:12→21:43)
[2019-02-21] MEDS: ASPIRIN 81 MG TAB.CHEW PO SCH (08:16)
[2019-02-21] MEDS: BUDESONIDE 0.5 MG/2 ML NEBU NEB SCH ×2 (08:19→22:13)
[2019-02-21 10:15] LABS: BASO % 0 % (0-3); EOS % 0 % (0-3); HEMATOCRIT 33.1 % (39.0-53.0); LYMPH # 0.3 x10^3/uL (1.0-4.8); LYMPH % 2 % (24-48); MEAN CORPUSCULAR HEMOGLOBIN 31 pg (25-35); MEAN CORPUSCULAR HGB CONC 33 g/dL (31-37); MEAN CORPUSCULAR VOLUME 94 fL (79-100); MONO # 0.7 x10^3/uL (0.0-1.1); MONO % 4 % (0-9); NEUT % 94 % (31-73); PLATELET COUNT 280 x10^3/uL (140-400); RED BLOOD COUNT 3.53 x10^6/uL (4.30-5.70); RED CELL DISTRIBUTION WIDTH 13.4 % (11.5-14.5); WHITE BLOOD COUNT 15.9 x10^3/uL (4.0-11.0)
[2019-02-21 11:30] LABS: % BANDS 6 % (0-9); % LYMPHS 2 % (24-48); % MONOS 3 % (0-10); % SEGS 89 % (35-66)
[2019-02-21 11:36] LABS: PLT ESTIMATE ADEQUATE (ADEQUATE)
[2019-02-22] VITALS (9 sets, daily range): BP systolic 106–137; BP diastolic 55–82
[2019-02-22] MEDS: PIPERACILLIN/TAZOBACTAM 4.5 GM in IV NORMAL SALINE 50ML 50 ML IV SCH ×5 (00:18→23:59)
--- NOTE | 2019-02-22 03:49 | PN ---
DATE: SUBJECTIVE: A 59-year-old male in with acute respiratory failure, sepsis with Haemophilus influenza. The patient is on IV antibiotic therapy. The patient says he is feeling somewhat better today and seems to be looking a little better. OBJECTIVE: VITAL SIGNS: Blood pressure a little bit on the high side, 175/81, respiratory rate 22, pulse of 110, and afebrile. GENERAL: The patient is alert and oriented. Good affect. LUNGS: Diminished throughout. Few wheezing here and there, but not much compared to what he has been. His oxygen saturation on 15 liters is at 94-100%. The patient is afebrile. CARDIOVASCULAR: As noted, somewhat tachycardic. EXTREMITIES: Without clubbing or cyanosis. Just trace edema. ABDOMEN: Otherwise, the abdomen was soft and nontender. IMPRESSION: Therefore is of acute respiratory failure, sepsis secondary to H. flu, pulmonary fibrosis, chronic moderate protein malnutrition, history of rheumatoid arthritis, mild congestive heart failure, elevated D-dimer, obesity, and depression. PLAN: The patient is continued on IV antibiotic therapy and aggressive pulmonary toilet. Start PT, continue with PT and OT, and hopefully ready for a discharge here soon. SANDRA NEGRETE MD DR: RAMONA/neetu JOB#: [id number] / [id number]
[2019-02-22] MEDS: MEROPENEM 1 GM in IV NORMAL SALINE 100ML 100 ML IV SCH ×3 (05:44→21:06)
[2019-02-22] MEDS: IPRATRPIUM/ALBUTEROL 0.5/2.5MG 3 ML NEBU. NEB SCH ×4 (05:51→20:08)
[2019-02-22] MEDS: LEVOTHYROXINE 112 MCG TABLET PO SCH (06:21)
[2019-02-22] MEDS: FUROSEMIDE 40 MG TABLET PO SCH (09:06)
[2019-02-22] MEDS: LACTOBACILLUS RHAMNOSUS GG 1 CAPSULE. PO SCH ×2 (09:06→20:54)
[2019-02-22] MEDS: MORPHINE ER 30 MG TABLET.ER PO SCH ×2 (09:06→20:55)
[2019-02-22] MEDS: DULoxetine HCL 60 MG CAPSULE.DR PO SCH (09:07)
[2019-02-22] MEDS: GABAPENTIN 300 MG CAPSULE. PO SCH ×3 (09:07→20:54)
[2019-02-22] MEDS: ROFLUMILAST 500 MCG TABLET PO SCH (09:07)
[2019-02-22] MEDS: PANTOPRAZOLE 40 MG TABLET. PO SCH (09:07)
[2019-02-22] MEDS: buPROPion 100 MG TABLET PO SCH (09:07)
[2019-02-22] MEDS: HYDROXYCHLOROQUINE 200 MG TABLET PO SCH ×2 (09:07→20:54)
[2019-02-22] MEDS: ENOXAPARIN ** NOTE DOSE ** SYRINGE SQ SCH ×2 (09:07→20:54)
[2019-02-22] MEDS: ASPIRIN 81 MG TAB.CHEW PO SCH (09:07)
[2019-02-22] MEDS: methylPREDNISolone SOD SUCC PF 40 MG/ML VIAL. IV SCH ×2 (09:08→20:54)
[2019-02-22] MEDS: BUDESONIDE 0.5 MG/2 ML NEBU NEB SCH ×2 (09:20→20:09)
--- NOTE | 2019-02-22 14:45 | RAD ---
NUCLEAR MEDICINE VENTILATION PERFUSION SCAN History: Elevated d-dimer. Increased oxygen requirements. Dyspnea on exertion. Acute respiratory failure. Comparison: AP chest, 3 days ago. Technique: Patient initially ventilated with 18 mCi of xenon-133 gas. Anterior and posterior imaging of the lungs during initial breath-hold, equilibrium and, washout phase images is performed. Perfusion portion performed after intravenous administration of 6.6 mCi Technetium 99m MAA. Multiple projection planar images of the lungs were obtained. Findings: The initial breath-hold ventilation images are heterogeneous and appear count poor. There is retention of tracer in the right lower lobe on the washout phase images. Perfusion images demonstrate no obvious mismatched segmental perfusion defects. Tracer distribution is mildly heterogeneous, may be due to patient body habitus. IMPRESSION: 1. Low probability for pulmonary embolus. 2. There is air trapping in the right lower lobe. Electronically signed by: Sergey Alexis MD (02/22/2019 2:43 PM) [id number]
--- NOTE | 2019-02-22 15:16 | RAD ---
CHEST PA LATERAL Clinical indications: Pneumonia. Follow-up study. COMPARISON: February 19, 2019. Findings: Increase in bibasilar lung infiltrates is seen. Ill-defined infiltrate is seen within the right upper lobe as well. This was seen previously. No significant pleural effusion is seen. No pneumothorax is evident. The heart size, pulmonary vasculature, mediastinum and both naif are stable. Impression: Increase in bibasilar lung infiltrates. Electronically signed by: Sukhwinder Kessler MD (02/22/2019 3:13 PM) [id number]
--- NOTE | 2019-02-23 01:20 | PN ---
DATE: SUBJECTIVE: The patient came in with acute respiratory failure with sepsis secondary to H. flu, Haemophilus influenza that is. He continues on IV antibiotic therapy, seems to be a little bit stronger today, still very weak. OBJECTIVE: VITAL SIGNS: Blood pressure approximately 120/70, respiratory rate 20, pulse 90-92, presently afebrile. The patient otherwise still on 12 liters per high flow nasal cannula at 96%. GENERAL: The patient otherwise has good mood. LUNGS: Diminished, some crackles noted improved, but there is still some wheezing noted in the upper lobes. CARDIOVASCULAR: Slightly tachycardic. ABDOMEN: Protuberant, soft, nontender. EXTREMITIES: No clubbing, cyanosis. Trace edema. NEUROLOGIC: Intact. LABORATORY DATA: From yesterday look basically stable from previous days. Creatinine has gone up just slightly to 1.7. The patient's procalcitonin was elevated at 0.69 indicating a respiratory tract infection. In any case, patient had a recent right hilar infiltrate consistent with a possible pneumonia there. The patient's previous CTA may need another one here presently or V/Q scan if possible. IMPRESSION: Sepsis, acute respiratory failure with Haemophilus influenza, acute exacerbation with chronic obstructive pulmonary disease with hypoxia, obesity, depression, PCR from outside demonstrated a H. flu. We will continue with IV antibiotic therapy. Repeat a chest x-ray and I do V/Q scan for a positive D-dimer. SANDRA NEGRETE MD DR: RAMONA/neetu JOB#: [id number] / [id number]
[2019-02-23] MEDS: MEROPENEM 1 GM in IV NORMAL SALINE 100ML 100 ML IV SCH ×2 (05:47→14:02)
[2019-02-23] MEDS: LEVOTHYROXINE 112 MCG TABLET PO SCH (05:47)
[2019-02-23 06:00] VITALS: BP 119/63
[2019-02-23] MEDS: PIPERACILLIN/TAZOBACTAM 4.5 GM in IV NORMAL SALINE 50ML 50 ML IV SCH ×2 (06:12→12:34)
[2019-02-23 06:20] LABS: CALCIUM 8.4 mg/dL (8.5-10.1); CREATININE 1.5 mg/dL (0.7-1.3); GFR 47.6; POTASSIUM 3.6 mmol/L (3.5-5.1)
[2019-02-23 06:22] LABS: BASO % 0 % (0-3); EOS % 0 % (0-3); HEMATOCRIT 31.8 % (39.0-53.0); HEMOGLOBIN 10.4 g/dL (13.0-17.5); LYMPH # 0.4 x10^3/uL (1.0-4.8); LYMPH % 4 % (24-48); MEAN CORPUSCULAR HEMOGLOBIN 31 pg (25-35); MEAN CORPUSCULAR HGB CONC 33 g/dL (31-37); MEAN CORPUSCULAR VOLUME 95 fL (79-100); MONO # 0.6 x10^3/uL (0.0-1.1); MONO % 6 % (0-9); NEUT # 9.7 x10^3uL (1.8-7.7); NEUT % 91 % (31-73); PLATELET COUNT 277 x10^3/uL (140-400); RED BLOOD COUNT 3.35 x10^6/uL (4.30-5.70); RED CELL DISTRIBUTION WIDTH 13.9 % (11.5-14.5); WHITE BLOOD COUNT 10.7 x10^3/uL (4.0-11.0)
[2019-02-23] MEDS: ASPIRIN 81 MG TAB.CHEW PO SCH (07:58)
[2019-02-23] MEDS: LACTOBACILLUS RHAMNOSUS GG 1 CAPSULE. PO SCH (07:58)
[2019-02-23] MEDS: HYDROXYCHLOROQUINE 200 MG TABLET PO SCH (07:58)
[2019-02-23] MEDS: ENOXAPARIN ** NOTE DOSE ** SYRINGE SQ SCH (07:58)
[2019-02-23] MEDS: methylPREDNISolone SOD SUCC PF 40 MG/ML VIAL. IV SCH (07:58)
[2019-02-23] MEDS: MORPHINE ER 30 MG TABLET.ER PO SCH (07:59)
[2019-02-23] MEDS: GABAPENTIN 300 MG CAPSULE. PO SCH ×2 (07:59→14:02)
[2019-02-23] MEDS: FUROSEMIDE 40 MG TABLET PO SCH (07:59)
[2019-02-23] MEDS: PANTOPRAZOLE 40 MG TABLET. PO SCH (07:59)
[2019-02-23] MEDS: DULoxetine HCL 60 MG CAPSULE.DR PO SCH (07:59)
[2019-02-23] MEDS: ROFLUMILAST 500 MCG TABLET PO SCH (08:02)
[2019-02-23] MEDS ORDERED: buPROPion SR 150 MG TABLET.SA PO SCH (09:00)
[2019-02-23] MEDS: IPRATRPIUM/ALBUTEROL 0.5/2.5MG 3 ML NEBU. NEB SCH (09:57)
[2019-02-23] MEDS: BUDESONIDE 0.5 MG/2 ML NEBU NEB SCH (09:57)
[2019-02-23 11:26] VITALS: BP 119/68
[2019-02-23 11:58] LABS: BACTERIA,URINE 0 /HPF (0-FEW); BILIRUBIN,URINE NEG (NEG); CLARITY,URINE TURBID; COLOR,URINE AMBER; GLUCOSE,URINE NEG (NEG); NITRITE,URINE NEG (NEG); RBC,URINE >40 /HPF (0-2); SQUAMOUS EPITHELIAL CELL,UR FEW /LPF; UROBILINOGEN,URINE 0.2 mg/dL (0.2 mg/dL); WBC,URINE RARE /HPF (0-4)
--- NOTE | 2019-02-24 17:50 | DS ---
DATE OF DISCHARGE: 02/23/2019 Discharge summary from the ICU. HOSPITAL COURSE: The patient came in with acute on top of chronic respiratory failure with sepsis and hypoxia. A PCR performed as an outpatient did show Haemophilus influenza. He had failed outpatient therapy and as a result of this was admitted in the unit to the ICU for further evaluation. He was given IV antibiotic therapy and made fairly good progress, but still extremely weak, having difficulty despite PT and OT's best effort. The patient was admitted, will be transferred to the skilled unit for continued rehabilitation care as he has generalized weakness. PHYSICAL EXAMINATION: VITAL SIGNS: Blood pressure 120/68, respiratory rate 24, pulse 72, afebrile. The patient is alert and oriented. LUNGS: Diminished particularly in the bases. Some wheezing noted. CARDIOVASCULAR: Stable. EXTREMITIES: No clubbing, cyanosis. Trace edema. The patient made good progress. His last hemoglobin and hematocrit 10 and 31, white count of 10, came down from 15. The patient's electrolytes were basically stable, has mild chronic renal failure, stage 3, elevated BNP slightly, had a lot of red blood cells in his urine, but he has a catheter in there for diuresis. His last chest x-ray showed increase in bibasilar lung infiltrates; however, the patient, as noted, was doing much better. He was afebrile at the time of dismissal or transfer to the skilled unit. IMPRESSION: Sepsis with Haemophilus influenza, pneumonia specified etiology H. flu, acute on top of chronic respiratory failure, hypoxia. The patient otherwise made good progress and was stable at the time of discharge and he will be transferred to the skilled unit for continued rehabilitation care. Continue antibiotic therapy and aggressive pulmonary and respiratory and physical and occupational therapy as indicated. SANDRA NEGRETE MD DR: RAMONA/neetu JOB#: [id number] / [id number]
== END 2019-02-23 14:53 | DRG 871 ==
LOC: ICU 09:01
PROVIDERS: ADMIT Family Medicine; ATTEND Family Medicine
DX: A41.3 Sepsis due to Hemophilus influenzae (principal); J11.00 Influenza due to unidentified influenza virus with unspecified type of pneumonia; J96.21 Acute and chronic respiratory failure with hypoxia; E44.0 Moderate protein-calorie malnutrition; I12.0 Hypertensive chronic kidney disease with stage 5 chronic kidney disease or end stage renal disease; N18.5 Chronic kidney disease, stage 5; E03.9 Hypothyroidism, unspecified; E66.9 Obesity, unspecified; G47.30 Sleep apnea, unspecified; I50.9 Heart failure, unspecified; J42 Unspecified chronic bronchitis; M06.9 Rheumatoid arthritis, unspecified; K21.9 Gastro-esophageal reflux disease without esophagitis; F32.9 Major depressive disorder, single episode, unspecified; M10.9 Gout, unspecified; M19.90 Unspecified osteoarthritis, unspecified site; Z79.899 Other long term (current) drug therapy; Z68.43 Body mass index [BMI] 50.0-59.9, adult
CPT/HCPCS: 36415; 71045; 71046; 78582; 80048; 80053; 81001; 82550; 82803; 82947; 83605; 83735; 83880; 84145; 84484; 85007; 85025; 85379; 86713; 86738; 87040; 87070; 87086; 87186; 87205; 87804; 93005; 94640; 94760; 96374; A9540; A9558; J1650; J1940; J2060; J2185; J2543; J2920; J3370; J7040; J7620; J7626; 97110; 97116; 97530

== ENCOUNTER 2019-02-23 13:21 | Inpatient (IN) | payer MEDICARE ==
[~2019-02-23] VITALS: Ht 157.5 cm; Wt 71.8 kg
[2019-02-23] MEDS ORDERED: PROMETH/CODEINE 6.25/10MG 5 ML SYRUP. PO PRN (15:15)
[2019-02-23] MEDS ORDERED: DOCUSATE SODIUM 100 MG CAPSULE PO PRN (15:15)
[2019-02-23] MEDS ORDERED: ACETAMINOPHEN 325 MG TABLET PO PRN (15:15)
[2019-02-23] MEDS: IPRATRPIUM/ALBUTEROL 0.5/2.5MG 3 ML NEBU. NEB SCH ×2 (16:00→19:27)
[2019-02-23] MEDS ORDERED: PIPERACILLIN/TAZOBACTAM 4.5 GM in IV NORMAL SALINE 50ML 50 ML IV SCH (18:00)
[2019-02-23 18:49] VITALS: BP 157/80
[2019-02-23] MEDS: BUDESONIDE 0.5 MG/2 ML NEBU NEB SCH (19:27)
[2019-02-23] MEDS: LACTOBACILLUS RHAMNOSUS GG 1 CAPSULE. PO SCH (20:00)
[2019-02-23] MEDS: MORPHINE ER 30 MG TABLET.ER PO SCH (20:00)
[2019-02-23] MEDS: GABAPENTIN 300 MG CAPSULE. PO SCH (20:01)
[2019-02-23] MEDS: LORazepam 0.5 MG TABLET PO PRN (20:01)
[2019-02-23] MEDS: ATORVASTATIN CALCIUM 20 MG TABLET PO SCH (20:01)
[2019-02-23] MEDS: ZOLPIDEM 5 MG TABLET. PO SCH (20:08)
[2019-02-23] MEDS: HYDROXYCHLOROQUINE 200 MG TABLET PO SCH ×2 (20:10→20:56)
[2019-02-23] MEDS: methylPREDNISolone SOD SUCC PF 40 MG/ML VIAL. IV SCH (21:00)
[2019-02-23] MEDS: MEROPENEM 1 GM in IV NORMAL SALINE 100ML 100 ML IV SCH (21:00)
[2019-02-24] MEDS: methylPREDNISolone SOD SUCC PF 40 MG/ML VIAL. IV SCH ×3 (05:07→21:07)
[2019-02-24] MEDS: MEROPENEM 1 GM in IV NORMAL SALINE 100ML 100 ML IV SCH ×3 (05:07→21:08)
[2019-02-24] MEDS: LEVOTHYROXINE 112 MCG TABLET PO SCH (05:07)
[2019-02-24 05:36] VITALS: BP 110/77
[2019-02-24] MEDS: ASPIRIN 81 MG TAB.CHEW PO SCH ×2 (06:10→09:47)
[2019-02-24] MEDS: IPRATRPIUM/ALBUTEROL 0.5/2.5MG 3 ML NEBU. NEB SCH ×4 (06:24→22:22)
[2019-02-24] MEDS: FUROSEMIDE 40 MG TABLET PO SCH (09:47)
[2019-02-24] MEDS: GABAPENTIN 300 MG CAPSULE. PO SCH ×3 (09:47→21:02)
[2019-02-24] MEDS: CHOLECALCIFEROL (VITAMIN D3) 1,000 UNIT TABLET PO SCH (09:47)
[2019-02-24] MEDS: MULTIVITAMIN with MINERAL TABLET. PO SCH (09:47)
[2019-02-24] MEDS: buPROPion SR 150 MG TABLET.SA PO SCH (09:47)
[2019-02-24] MEDS: PANTOPRAZOLE 40 MG TABLET. PO SCH (09:47)
[2019-02-24] MEDS: MORPHINE ER 30 MG TABLET.ER PO SCH ×2 (09:48→21:03)
[2019-02-24] MEDS: POTASSIUM CHLORIDE 20 MEQ TABLET.ER. PO SCH (09:48)
[2019-02-24] MEDS: LACTOBACILLUS RHAMNOSUS GG 1 CAPSULE. PO SCH ×2 (09:48→21:04)
[2019-02-24] MEDS: DULoxetine HCL 60 MG CAPSULE.DR PO SCH (09:48)
[2019-02-24] MEDS: HYDROXYCHLOROQUINE 200 MG TABLET PO SCH ×2 (09:51→21:02)
[2019-02-24] MEDS: BUDESONIDE 0.5 MG/2 ML NEBU NEB SCH ×2 (11:03→22:22)
[2019-02-24] MEDS: NYSTATIN 100,000 UNITS/ML ORAL SUSPENSION 60ML BOTTLE. SWSW SCH ×3 (14:30→21:05)
[2019-02-24 18:35] VITALS: BP 127/86
[2019-02-24] MEDS: ATORVASTATIN CALCIUM 20 MG TABLET PO SCH (21:02)
[2019-02-24] MEDS: ZOLPIDEM 5 MG TABLET. PO SCH (21:04)
[2019-02-25] MEDS: IPRATRPIUM/ALBUTEROL 0.5/2.5MG 3 ML NEBU. NEB SCH ×4 (06:15→20:48)
[2019-02-25] MEDS: LEVOTHYROXINE 112 MCG TABLET PO SCH (06:16)
[2019-02-25] MEDS: methylPREDNISolone SOD SUCC PF 40 MG/ML VIAL. IV SCH ×3 (06:16→21:35)
[2019-02-25] MEDS: MEROPENEM 1 GM in IV NORMAL SALINE 100ML 100 ML IV SCH ×3 (06:16→21:35)
[2019-02-25 06:31] VITALS: BP 130/77
[2019-02-25] MEDS: POTASSIUM CHLORIDE 20 MEQ TABLET.ER. PO SCH (08:38)
[2019-02-25] MEDS: FUROSEMIDE 40 MG TABLET PO SCH (08:38)
[2019-02-25] MEDS: CHOLECALCIFEROL (VITAMIN D3) 1,000 UNIT TABLET PO SCH (08:39)
[2019-02-25] MEDS: DULoxetine HCL 60 MG CAPSULE.DR PO SCH (08:39)
[2019-02-25] MEDS: LACTOBACILLUS RHAMNOSUS GG 1 CAPSULE. PO SCH ×2 (08:39→20:29)
[2019-02-25] MEDS: MULTIVITAMIN with MINERAL TABLET. PO SCH (08:39)
[2019-02-25] MEDS: MORPHINE ER 30 MG TABLET.ER PO SCH ×2 (08:39→20:29)
[2019-02-25] MEDS: GABAPENTIN 300 MG CAPSULE. PO SCH ×3 (08:39→20:29)
[2019-02-25] MEDS: buPROPion SR 150 MG TABLET.SA PO SCH (08:39)
[2019-02-25] MEDS: PANTOPRAZOLE 40 MG TABLET. PO SCH (08:39)
[2019-02-25] MEDS: HYDROXYCHLOROQUINE 200 MG TABLET PO SCH ×2 (08:41→20:30)
[2019-02-25] MEDS: NYSTATIN 100,000 UNITS/ML ORAL SUSPENSION 60ML BOTTLE. SWSW SCH ×4 (08:41→20:28)
[2019-02-25] MEDS: BUDESONIDE 0.5 MG/2 ML NEBU NEB SCH ×2 (09:47→20:48)
[2019-02-25] MEDS: HYDROcodone/APAP 7.5/325MG 1 TAB TABLET PO PRN ×2 (13:11→20:32)
[2019-02-25 17:50] VITALS: BP 133/84
[2019-02-25] MEDS: LORazepam 0.5 MG TABLET PO PRN (20:29)
[2019-02-25] MEDS: ATORVASTATIN CALCIUM 20 MG TABLET PO SCH (20:29)
[2019-02-25] MEDS: ZOLPIDEM 5 MG TABLET. PO SCH (20:32)
[2019-02-26] MEDS: methylPREDNISolone SOD SUCC PF 40 MG/ML VIAL. IV SCH ×3 (05:29→22:04)
[2019-02-26] MEDS: MEROPENEM 1 GM in IV NORMAL SALINE 100ML 100 ML IV SCH ×3 (05:30→22:04)
[2019-02-26] MEDS: LEVOTHYROXINE 112 MCG TABLET PO SCH (05:30)
[2019-02-26] MEDS: IPRATRPIUM/ALBUTEROL 0.5/2.5MG 3 ML NEBU. NEB SCH ×4 (05:52→22:31)
[2019-02-26 06:06] VITALS: BP 144/83
[2019-02-26 06:53] LABS: BASO % 0 % (0-3); EOS % 0 % (0-3); HEMATOCRIT 30.6 % (39.0-53.0); HEMOGLOBIN 10.1 g/dL (13.0-17.5); LYMPH # 0.5 x10^3/uL (1.0-4.8); LYMPH % 5 % (24-48); MEAN CORPUSCULAR HEMOGLOBIN 31 pg (25-35); MEAN CORPUSCULAR HGB CONC 33 g/dL (31-37); MEAN CORPUSCULAR VOLUME 94 fL (79-100); MONO # 0.6 x10^3/uL (0.0-1.1); MONO % 5 % (0-9); NEUT # 10.4 x10^3uL (1.8-7.7); NEUT % 90 % (31-73); PLATELET COUNT 287 x10^3/uL (140-400); RED BLOOD COUNT 3.25 x10^6/uL (4.30-5.70); RED CELL DISTRIBUTION WIDTH 14.1 % (11.5-14.5); WHITE BLOOD COUNT 11.6 x10^3/uL (4.0-11.0)
[2019-02-26 06:59] LABS: CALCIUM 8.3 mg/dL (8.5-10.1); CREATININE 1.2 mg/dL (0.7-1.3); GFR 61.6; POTASSIUM 3.7 mmol/L (3.5-5.1)
[2019-02-26] MEDS: FUROSEMIDE 40 MG TABLET PO SCH (08:18)
[2019-02-26] MEDS: POTASSIUM CHLORIDE 20 MEQ TABLET.ER. PO SCH (08:19)
[2019-02-26] MEDS: GABAPENTIN 300 MG CAPSULE. PO SCH ×3 (08:19→20:23)
[2019-02-26] MEDS: MULTIVITAMIN with MINERAL TABLET. PO SCH (08:19)
[2019-02-26] MEDS: buPROPion SR 150 MG TABLET.SA PO SCH (08:19)
[2019-02-26] MEDS: MORPHINE ER 30 MG TABLET.ER PO SCH ×2 (08:20→20:24)
[2019-02-26] MEDS: LACTOBACILLUS RHAMNOSUS GG 1 CAPSULE. PO SCH ×2 (08:20→20:23)
[2019-02-26] MEDS: ASPIRIN 81 MG TAB.CHEW PO SCH (08:20)
[2019-02-26] MEDS: PANTOPRAZOLE 40 MG TABLET. PO SCH (08:21)
[2019-02-26] MEDS: DULoxetine HCL 60 MG CAPSULE.DR PO SCH (08:21)
[2019-02-26] MEDS: HYDROXYCHLOROQUINE 200 MG TABLET PO SCH ×2 (08:22→20:24)
[2019-02-26] MEDS: CHOLECALCIFEROL (VITAMIN D3) 1,000 UNIT TABLET PO SCH (08:22)
[2019-02-26] MEDS: BUDESONIDE 0.5 MG/2 ML NEBU NEB SCH ×2 (08:23→22:31)
[2019-02-26] MEDS: HYDROcodone/APAP 7.5/325MG 1 TAB TABLET PO PRN ×3 (08:30→20:25)
[2019-02-26] MEDS: NYSTATIN 100,000 UNITS/ML ORAL SUSPENSION 60ML BOTTLE. SWSW SCH ×4 (08:30→22:04)
[2019-02-26] MEDS: ATORVASTATIN CALCIUM 20 MG TABLET PO SCH (20:23)
[2019-02-26] MEDS: LORazepam 0.5 MG TABLET PO PRN (22:04)
[2019-02-26] MEDS: ZOLPIDEM 5 MG TABLET. PO SCH (22:04)
[2019-02-27] MEDS: IPRATRPIUM/ALBUTEROL 0.5/2.5MG 3 ML NEBU. NEB SCH ×4 (05:52→22:05)
[2019-02-27] MEDS: LEVOTHYROXINE 112 MCG TABLET PO SCH (05:57)
[2019-02-27] MEDS: methylPREDNISolone SOD SUCC PF 40 MG/ML VIAL. IV SCH ×3 (05:57→22:11)
[2019-02-27] MEDS: MEROPENEM 1 GM in IV NORMAL SALINE 100ML 100 ML IV SCH ×3 (05:57→22:12)
[2019-02-27] MEDS: HYDROcodone/APAP 7.5/325MG 1 TAB TABLET PO PRN ×3 (05:59→19:40)
[2019-02-27 06:07] VITALS: BP 124/75
[2019-02-27] MEDS: NYSTATIN 100,000 UNITS/ML ORAL SUSPENSION 60ML BOTTLE. SWSW SCH ×4 (08:05→21:03)
[2019-02-27] MEDS: GABAPENTIN 300 MG CAPSULE. PO SCH ×3 (08:06→21:03)
[2019-02-27] MEDS: MULTIVITAMIN with MINERAL TABLET. PO SCH (08:06)
[2019-02-27] MEDS: PANTOPRAZOLE 40 MG TABLET. PO SCH (08:06)
[2019-02-27] MEDS: CHOLECALCIFEROL (VITAMIN D3) 1,000 UNIT TABLET PO SCH (08:06)
[2019-02-27] MEDS: POTASSIUM CHLORIDE 20 MEQ TABLET.ER. PO SCH (08:07)
[2019-02-27] MEDS: FUROSEMIDE 40 MG TABLET PO SCH (08:07)
[2019-02-27] MEDS: MORPHINE ER 30 MG TABLET.ER PO SCH ×2 (08:07→21:04)
[2019-02-27] MEDS: LACTOBACILLUS RHAMNOSUS GG 1 CAPSULE. PO SCH ×2 (08:07→21:04)
[2019-02-27] MEDS: HYDROXYCHLOROQUINE 200 MG TABLET PO SCH ×2 (08:08→21:04)
[2019-02-27] MEDS: ASPIRIN 81 MG TAB.CHEW PO SCH (08:08)
[2019-02-27] MEDS: BUDESONIDE 0.5 MG/2 ML NEBU NEB SCH ×3 (08:10→22:05)
[2019-02-27] MEDS: DULoxetine HCL 60 MG CAPSULE.DR PO SCH (08:10)
[2019-02-27] MEDS: buPROPion SR 150 MG TABLET.SA PO SCH (08:15)
[2019-02-27] MEDS: FUROSEMIDE 20 MG/2 ML VIAL IVP SCH (14:24)
[2019-02-27 20:58] VITALS: BP 151/85
[2019-02-27] MEDS: ATORVASTATIN CALCIUM 20 MG TABLET PO SCH (21:04)
[2019-02-27] MEDS: ZOLPIDEM 5 MG TABLET. PO SCH (22:11)
[2019-02-27] MEDS: LORazepam 0.5 MG TABLET PO PRN (22:11)
[2019-02-28] MEDS: MEROPENEM 1 GM in IV NORMAL SALINE 100ML 100 ML IV SCH ×3 (05:41→21:15)
[2019-02-28] MEDS: LEVOTHYROXINE 112 MCG TABLET PO SCH (05:41)
[2019-02-28] MEDS: HYDROcodone/APAP 7.5/325MG 1 TAB TABLET PO PRN ×2 (05:41→14:00)
[2019-02-28] MEDS: methylPREDNISolone SOD SUCC PF 40 MG/ML VIAL. IV SCH ×3 (05:41→21:15)
[2019-02-28 05:43] VITALS: BP 135/81
[2019-02-28] MEDS: IPRATRPIUM/ALBUTEROL 0.5/2.5MG 3 ML NEBU. NEB SCH ×4 (05:58→20:49)
[2019-02-28] MEDS: PANTOPRAZOLE 40 MG TABLET. PO SCH (07:47)
[2019-02-28] MEDS: FUROSEMIDE 20 MG/2 ML VIAL IVP SCH (07:47)
[2019-02-28] MEDS: MORPHINE ER 30 MG TABLET.ER PO SCH ×2 (07:48→21:14)
[2019-02-28] MEDS: POTASSIUM CHLORIDE 20 MEQ TABLET.ER. PO SCH (07:48)
[2019-02-28] MEDS: buPROPion SR 150 MG TABLET.SA PO SCH (07:48)
[2019-02-28] MEDS: FUROSEMIDE 40 MG TABLET PO SCH (07:48)
[2019-02-28] MEDS: LACTOBACILLUS RHAMNOSUS GG 1 CAPSULE. PO SCH ×2 (07:48→21:13)
[2019-02-28] MEDS: DULoxetine HCL 60 MG CAPSULE.DR PO SCH (07:48)
[2019-02-28] MEDS: CHOLECALCIFEROL (VITAMIN D3) 1,000 UNIT TABLET PO SCH (07:49)
[2019-02-28] MEDS: ASPIRIN 81 MG TAB.CHEW PO SCH (07:49)
[2019-02-28] MEDS: HYDROXYCHLOROQUINE 200 MG TABLET PO SCH ×2 (07:49→21:14)
[2019-02-28] MEDS: MULTIVITAMIN with MINERAL TABLET. PO SCH (07:49)
[2019-02-28] MEDS: GABAPENTIN 300 MG CAPSULE. PO SCH ×3 (07:49→21:14)
[2019-02-28] MEDS: NYSTATIN 100,000 UNITS/ML ORAL SUSPENSION 60ML BOTTLE. SWSW SCH ×4 (07:50→21:00)
[2019-02-28] MEDS: BUDESONIDE 0.5 MG/2 ML NEBU NEB SCH ×2 (10:19→20:49)
[2019-02-28] MEDS ORDERED: ONDANSETRON ODT 4 MG TAB.RAPDIS PO PRN (11:15)
[2019-02-28 18:21] VITALS: BP 129/81
[2019-02-28] MEDS: ZOLPIDEM 5 MG TABLET. PO SCH (21:14)
[2019-02-28] MEDS: ATORVASTATIN CALCIUM 20 MG TABLET PO SCH (21:14)
[2019-03-01 05:35] VITALS: BP 119/83
[2019-03-01] MEDS: IPRATRPIUM/ALBUTEROL 0.5/2.5MG 3 ML NEBU. NEB SCH ×4 (05:40→20:46)
[2019-03-01] MEDS: MEROPENEM 1 GM in IV NORMAL SALINE 100ML 100 ML IV SCH ×3 (05:50→21:04)
[2019-03-01] MEDS: LEVOTHYROXINE 112 MCG TABLET PO SCH (05:50)
[2019-03-01] MEDS: methylPREDNISolone SOD SUCC PF 40 MG/ML VIAL. IV SCH ×2 (06:01→21:05)
[2019-03-01] MEDS: HYDROcodone/APAP 7.5/325MG 1 TAB TABLET PO PRN ×4 (06:02→23:40)
[2019-03-01] MEDS: GABAPENTIN 300 MG CAPSULE. PO SCH ×3 (08:33→21:07)
[2019-03-01] MEDS: buPROPion SR 150 MG TABLET.SA PO SCH (08:33)
[2019-03-01] MEDS: PANTOPRAZOLE 40 MG TABLET. PO SCH (08:33)
[2019-03-01] MEDS: DULoxetine HCL 60 MG CAPSULE.DR PO SCH (08:33)
[2019-03-01] MEDS: LACTOBACILLUS RHAMNOSUS GG 1 CAPSULE. PO SCH ×2 (08:33→21:06)
[2019-03-01] MEDS: CHOLECALCIFEROL (VITAMIN D3) 1,000 UNIT TABLET PO SCH (08:33)
[2019-03-01] MEDS: HYDROXYCHLOROQUINE 200 MG TABLET PO SCH ×2 (08:33→21:07)
[2019-03-01] MEDS: POTASSIUM CHLORIDE 20 MEQ TABLET.ER. PO SCH (08:34)
[2019-03-01] MEDS: MULTIVITAMIN with MINERAL TABLET. PO SCH (08:34)
[2019-03-01] MEDS: MORPHINE ER 30 MG TABLET.ER PO SCH ×2 (08:34→21:06)
[2019-03-01] MEDS: ASPIRIN 81 MG TAB.CHEW PO SCH (08:34)
[2019-03-01] MEDS: FUROSEMIDE 40 MG TABLET PO SCH (08:34)
[2019-03-01] MEDS: FUROSEMIDE 20 MG/2 ML VIAL IVP SCH (08:35)
[2019-03-01] MEDS: NYSTATIN 100,000 UNITS/ML ORAL SUSPENSION 60ML BOTTLE. SWSW SCH ×4 (08:39→21:06)
[2019-03-01] MEDS ORDERED: MAALOX:LIDO:APAP 6:2:1 ORAL SUSPENSION 180 ML BOTTLE. PO PRN (09:45)
[2019-03-01] MEDS ORDERED: FLUCONAZOLE 400MG/200ML PREMIX 200 ML IV SCH (10:00)
[2019-03-01] MEDS ORDERED: FLUCONAZOLE 200MG/100ML PREMIX 100 ML IV ONE ×2 (10:00→11:00)
[2019-03-01] MEDS ORDERED: FLUCONAZOLE 200 MG/100 ML IV ONE (10:00)
[2019-03-01] MEDS: BUDESONIDE 0.5 MG/2 ML NEBU NEB SCH ×2 (12:17→20:47)
[2019-03-01 17:55] VITALS: BP 139/83
[2019-03-01] MEDS: ATORVASTATIN CALCIUM 20 MG TABLET PO SCH (21:07)
[2019-03-01] MEDS: ZOLPIDEM 5 MG TABLET. PO SCH (21:07)
[2019-03-02] MEDS: IPRATRPIUM/ALBUTEROL 0.5/2.5MG 3 ML NEBU. NEB SCH ×4 (05:24→21:18)
[2019-03-02] MEDS: MEROPENEM 1 GM in IV NORMAL SALINE 100ML 100 ML IV SCH ×3 (05:34→21:03)
[2019-03-02] MEDS: LEVOTHYROXINE 112 MCG TABLET PO SCH (05:34)
[2019-03-02] MEDS: HYDROcodone/APAP 7.5/325MG 1 TAB TABLET PO PRN ×3 (05:41→21:02)
[2019-03-02 05:45] VITALS: BP 105/67
[2019-03-02] MEDS: CHOLECALCIFEROL (VITAMIN D3) 1,000 UNIT TABLET PO SCH (08:30)
[2019-03-02] MEDS: DULoxetine HCL 60 MG CAPSULE.DR PO SCH (08:30)
[2019-03-02] MEDS: MULTIVITAMIN with MINERAL TABLET. PO SCH (08:31)
[2019-03-02] MEDS: GABAPENTIN 300 MG CAPSULE. PO SCH ×3 (08:31→21:02)
[2019-03-02] MEDS: buPROPion SR 150 MG TABLET.SA PO SCH (08:31)
[2019-03-02] MEDS: HYDROXYCHLOROQUINE 200 MG TABLET PO SCH ×2 (08:31→21:02)
[2019-03-02] MEDS: POTASSIUM CHLORIDE 20 MEQ TABLET.ER. PO SCH (08:31)
[2019-03-02] MEDS: MORPHINE ER 30 MG TABLET.ER PO SCH ×2 (08:31→21:01)
[2019-03-02] MEDS: ASPIRIN 81 MG TAB.CHEW PO SCH (08:31)
[2019-03-02] MEDS: LACTOBACILLUS RHAMNOSUS GG 1 CAPSULE. PO SCH ×2 (08:31→21:01)
[2019-03-02] MEDS: PANTOPRAZOLE 40 MG TABLET. PO SCH (08:31)
[2019-03-02] MEDS: FUROSEMIDE 40 MG TABLET PO SCH (08:32)
[2019-03-02] MEDS: NYSTATIN 100,000 UNITS/ML ORAL SUSPENSION 60ML BOTTLE. SWSW SCH ×4 (08:34→21:01)
[2019-03-02] MEDS: FUROSEMIDE 20 MG/2 ML VIAL IVP SCH (08:35)
[2019-03-02] MEDS: methylPREDNISolone SOD SUCC PF 40 MG/ML VIAL. IV SCH ×2 (08:36→21:03)
[2019-03-02] MEDS: FLUCONAZOLE 200MG/100ML PREMIX 100 ML IV SCH (08:39)
[2019-03-02 10:19] LABS: BASO # 0.1 x10^3/uL (0.0-0.2); BASO % 1 % (0-3); EOS % 0 % (0-3); HEMATOCRIT 35.2 % (39.0-53.0); HEMOGLOBIN 11.3 g/dL (13.0-17.5); LYMPH # 0.3 x10^3/uL (1.0-4.8); LYMPH % 2 % (24-48); MEAN CORPUSCULAR HEMOGLOBIN 31 pg (25-35); MEAN CORPUSCULAR HGB CONC 32 g/dL (31-37); MEAN CORPUSCULAR VOLUME 96 fL (79-100); MONO # 0.8 x10^3/uL (0.0-1.1); MONO % 6 % (0-9); NEUT # 12.5 x10^3uL (1.8-7.7); NEUT % 92 % (31-73); PLATELET COUNT 267 x10^3/uL (140-400); RED BLOOD COUNT 3.65 x10^6/uL (4.30-5.70); RED CELL DISTRIBUTION WIDTH 14.4 % (11.5-14.5); WHITE BLOOD COUNT 13.7 x10^3/uL (4.0-11.0)
[2019-03-02 10:36] LABS: ALBUMIN/GLOBULIN RATIO 0.8 (1.0-1.7); CALCIUM 8.8 mg/dL (8.5-10.1); CREATININE 1.2 mg/dL (0.7-1.3); GFR 61.6; POTASSIUM 4.4 mmol/L (3.5-5.1); TOTAL BILIRUBIN 0.4 mg/dL (0.2-1.0); TOTAL PROTEIN 6.7 g/dL (6.4-8.2)
[2019-03-02] MEDS: BUDESONIDE 0.5 MG/2 ML NEBU NEB SCH ×2 (10:55→21:17)
[2019-03-02 11:54] LABS: % BANDS 4 % (0-9); % LYMPHS 2 % (24-48); % MONOS 2 % (0-10); % SEGS 92 % (35-66); PLT ESTIMATE ADEQUATE (ADEQUATE)
[2019-03-02 19:13] VITALS: BP 122/82
[2019-03-02] MEDS: ATORVASTATIN CALCIUM 20 MG TABLET PO SCH (21:02)
[2019-03-02] MEDS: ZOLPIDEM 5 MG TABLET. PO SCH (21:02)
[2019-03-03] MEDS: IPRATRPIUM/ALBUTEROL 0.5/2.5MG 3 ML NEBU. NEB SCH ×4 (05:37→21:59)
[2019-03-03] MEDS: LEVOTHYROXINE 112 MCG TABLET PO SCH (05:39)
[2019-03-03] MEDS: MEROPENEM 1 GM in IV NORMAL SALINE 100ML 100 ML IV SCH ×3 (05:39→22:28)
[2019-03-03 05:48] VITALS: BP 150/82
[2019-03-03] MEDS: LACTOBACILLUS RHAMNOSUS GG 1 CAPSULE. PO SCH ×2 (08:30→22:15)
[2019-03-03] MEDS: FUROSEMIDE 40 MG TABLET PO SCH (08:30)
[2019-03-03] MEDS: MORPHINE ER 30 MG TABLET.ER PO SCH ×2 (08:30→22:27)
[2019-03-03] MEDS: PANTOPRAZOLE 40 MG TABLET. PO SCH (08:30)
[2019-03-03] MEDS: GABAPENTIN 300 MG CAPSULE. PO SCH ×3 (08:30→22:15)
[2019-03-03] MEDS: ASPIRIN 81 MG TAB.CHEW PO SCH (08:31)
[2019-03-03] MEDS: DULoxetine HCL 60 MG CAPSULE.DR PO SCH (08:31)
[2019-03-03] MEDS: buPROPion SR 150 MG TABLET.SA PO SCH (08:31)
[2019-03-03] MEDS: CHOLECALCIFEROL (VITAMIN D3) 1,000 UNIT TABLET PO SCH (08:31)
[2019-03-03] MEDS: methylPREDNISolone SOD SUCC PF 40 MG/ML VIAL. IV SCH ×2 (08:31→22:16)
[2019-03-03] MEDS: POTASSIUM CHLORIDE 20 MEQ TABLET.ER. PO SCH (08:31)
[2019-03-03] MEDS: MULTIVITAMIN with MINERAL TABLET. PO SCH (08:31)
[2019-03-03] MEDS: HYDROcodone/APAP 7.5/325MG 1 TAB TABLET PO PRN ×3 (08:35→22:14)
[2019-03-03] MEDS: NYSTATIN 100,000 UNITS/ML ORAL SUSPENSION 60ML BOTTLE. SWSW SCH ×4 (08:35→21:00)
[2019-03-03] MEDS: HYDROXYCHLOROQUINE 200 MG TABLET PO SCH ×2 (08:35→22:13)
[2019-03-03] MEDS: FLUCONAZOLE 200MG/100ML PREMIX 100 ML IV SCH (08:35)
[2019-03-03] MEDS: FUROSEMIDE 20 MG/2 ML VIAL IVP SCH (09:00)
[2019-03-03] MEDS: BUDESONIDE 0.5 MG/2 ML NEBU NEB SCH ×2 (13:01→21:59)
[2019-03-03 17:42] VITALS: BP 150/83
[2019-03-03] MEDS: ATORVASTATIN CALCIUM 20 MG TABLET PO SCH (22:13)
[2019-03-03] MEDS: ZOLPIDEM 5 MG TABLET. PO SCH (22:15)
[2019-03-04] MEDS ORDERED: SODIUM CHLORIDE 0.65% NASAL SPRAY 45ML BOTTLE. NS PRN
[2019-03-04] MEDS: IPRATRPIUM/ALBUTEROL 0.5/2.5MG 3 ML NEBU. NEB SCH ×4 (05:51→22:13)
[2019-03-04 05:56] VITALS: BP 127/76
[2019-03-04] MEDS: MEROPENEM 1 GM in IV NORMAL SALINE 100ML 100 ML IV SCH ×3 (06:29→21:18)
[2019-03-04] MEDS: LEVOTHYROXINE 112 MCG TABLET PO SCH (06:29)
[2019-03-04] MEDS: HYDROcodone/APAP 7.5/325MG 1 TAB TABLET PO PRN ×3 (06:30→19:46)
[2019-03-04] MEDS: NYSTATIN 100,000 UNITS/ML ORAL SUSPENSION 60ML BOTTLE. SWSW SCH ×4 (08:05→19:47)
[2019-03-04] MEDS: FLUCONAZOLE 200MG/100ML PREMIX 100 ML IV SCH (08:05)
[2019-03-04] MEDS: CHOLECALCIFEROL (VITAMIN D3) 1,000 UNIT TABLET PO SCH (08:06)
[2019-03-04] MEDS: methylPREDNISolone SOD SUCC PF 40 MG/ML VIAL. IV SCH ×2 (08:06→19:47)
[2019-03-04] MEDS: LACTOBACILLUS RHAMNOSUS GG 1 CAPSULE. PO SCH ×2 (08:07→19:47)
[2019-03-04] MEDS: MULTIVITAMIN with MINERAL TABLET. PO SCH (08:07)
[2019-03-04] MEDS: DULoxetine HCL 60 MG CAPSULE.DR PO SCH (08:07)
[2019-03-04] MEDS: MORPHINE ER 30 MG TABLET.ER PO SCH ×2 (08:07→19:46)
[2019-03-04] MEDS: buPROPion SR 150 MG TABLET.SA PO SCH (08:07)
[2019-03-04] MEDS: GABAPENTIN 300 MG CAPSULE. PO SCH ×3 (08:07→19:45)
[2019-03-04] MEDS: ASPIRIN 81 MG TAB.CHEW PO SCH (08:08)
[2019-03-04] MEDS: FUROSEMIDE 40 MG TABLET PO SCH (08:08)
[2019-03-04] MEDS: POTASSIUM CHLORIDE 20 MEQ TABLET.ER. PO SCH (08:08)
[2019-03-04] MEDS: PANTOPRAZOLE 40 MG TABLET. PO SCH (08:08)
[2019-03-04] MEDS: FUROSEMIDE 20 MG/2 ML VIAL IVP SCH (08:09)
[2019-03-04] MEDS: HYDROXYCHLOROQUINE 200 MG TABLET PO SCH ×2 (09:00→19:47)
[2019-03-04] MEDS ORDERED: NYSTATIN 100,000 UNITS/ML ORAL SUSPENSION 60ML BOTTLE. SWSW SCH (09:00)
[2019-03-04 18:00] VITALS: BP 130/82
[2019-03-04] MEDS: ATORVASTATIN CALCIUM 20 MG TABLET PO SCH (19:46)
[2019-03-04] MEDS: ZOLPIDEM 5 MG TABLET. PO SCH (19:47)
--- NOTE | 2019-03-04 20:39 | PN ---
DATE: SUBJECTIVE: A 59-year-old gentleman on the skilled unit. He continues to rehab from his severe pneumonia as well as acute on top of chronic respiratory failure. He seems to be doing somewhat better overall and was making fairly good progress. He had a Haemophilus influenza infection. The patient seems to be in good spirits and is noted is breathing a lot easier. With that also swelling in his legs diminished as well. OBJECTIVE: VITAL SIGNS: The patient's blood pressure 127/70, respiratory rate 24, pulse 99, afebrile, 15 liters nasal cannula. GENERAL: The patient is alert and oriented, in good spirits. LUNGS: Diminished throughout, particularly some crackles in the bases, but otherwise much, much improved from previous. CARDIOVASCULAR: Regular sinus rhythm. ABDOMEN: Protuberant. EXTREMITIES: No clubbing, cyanosis. There is +1 pitting edema, but improved. Again, he has probably chronic lymphedema as well. PLAN: We will go ahead and continue to monitor him, taper down on his medications and then hopefully ready for discharge here soon. Impression for skilled unit that of pneumonia caused by H flu, history of sepsis, pulmonary fibrosis, chronic obstructive pulmonary disease with exacerbation secondary to infection, obesity, hyperglycemia, probably secondary to his prednisone and moderate protein malnutrition. Continue with aggressive therapy as indicated and hopefully ready for discharge here soon. SANDRA NEGRETE MD DR: RAMONA/neetu JOB#: [id number] / [id number]
[2019-03-04] MEDS: BUDESONIDE 0.5 MG/2 ML NEBU NEB SCH (22:13)
[2019-03-05] MEDS: MEROPENEM 1 GM in IV NORMAL SALINE 100ML 100 ML IV SCH (05:40)
[2019-03-05] MEDS: LEVOTHYROXINE 112 MCG TABLET PO SCH (05:40)
[2019-03-05 05:57] VITALS: BP 119/80
[2019-03-05] MEDS: IPRATRPIUM/ALBUTEROL 0.5/2.5MG 3 ML NEBU. NEB SCH ×2 (06:02→11:13)
[2019-03-05] MEDS: methylPREDNISolone SOD SUCC PF 40 MG/ML VIAL. IV SCH (07:43)
[2019-03-05] MEDS: FUROSEMIDE 20 MG/2 ML VIAL IVP SCH (07:43)
[2019-03-05] MEDS: buPROPion SR 150 MG TABLET.SA PO SCH (07:43)
[2019-03-05] MEDS: PANTOPRAZOLE 40 MG TABLET. PO SCH (07:43)
[2019-03-05] MEDS: LACTOBACILLUS RHAMNOSUS GG 1 CAPSULE. PO SCH (07:43)
[2019-03-05] MEDS: GABAPENTIN 300 MG CAPSULE. PO SCH ×2 (07:44→13:48)
[2019-03-05] MEDS: CHOLECALCIFEROL (VITAMIN D3) 1,000 UNIT TABLET PO SCH (07:44)
[2019-03-05] MEDS: DULoxetine HCL 60 MG CAPSULE.DR PO SCH (07:44)
[2019-03-05] MEDS: POTASSIUM CHLORIDE 20 MEQ TABLET.ER. PO SCH (07:44)
[2019-03-05] MEDS: ASPIRIN 81 MG TAB.CHEW PO SCH (07:44)
[2019-03-05] MEDS: MORPHINE ER 30 MG TABLET.ER PO SCH (07:45)
[2019-03-05] MEDS: FUROSEMIDE 40 MG TABLET PO SCH (07:45)
[2019-03-05] MEDS: NYSTATIN 100,000 UNITS/ML ORAL SUSPENSION 60ML BOTTLE. SWSW SCH ×2 (07:45→13:48)
[2019-03-05] MEDS: HYDROXYCHLOROQUINE 200 MG TABLET PO SCH (07:45)
[2019-03-05] MEDS: FLUCONAZOLE 200MG/100ML PREMIX 100 ML IV SCH (07:46)
[2019-03-05] MEDS: HYDROcodone/APAP 7.5/325MG 1 TAB TABLET PO PRN (07:58)
[2019-03-05] MEDS: MULTIVITAMIN with MINERAL TABLET. PO SCH (07:59)
[2019-03-05] MEDS ORDERED: SODI44SP NS (08:21)
[2019-03-05] MEDS ORDERED: LACT1CAP19 PO (08:21)
[2019-03-05] MEDS ORDERED: ONDA4TAB12 PO (08:21)
[2019-03-05] MEDS ORDERED: HYDR-2765 PO (08:21)
[2019-03-05] MEDS ORDERED: NYST1000 SWSW (08:21)
[2019-03-05] MEDS ORDERED: FLUC200T PO (08:57)
--- NOTE | 2019-03-05 09:02 | DISCH ---
HOME HEALTH DISCHARGE/MEDS DISCHARGE INFORMATION: Discharge Date: Mar 05, 2019 Final Diagnosis: acute respiratory failure with hypoxia, influenza Condition on Discharge: Stable CODE STATUS: Code Status: DNR/DNI HOME HEALTH: Face to Face: I certify this patient is under my care and that I, or a nurse practitioner or physician's assistant purchasing manager working with me, had a face to face encounter that meets the physician face to face encounter requirements with this patient on [Date]. Medical Condition(s): COPD, Pneumonia Chcf For: Assess Cardiopulm Status, Assess & Educate Safety, Assess/Skilled Observatio, Medication Management, Pain Management, Other: Physical Therapy For: Evalulation/Treatment Homebound Status Met By: Poor coordination w/ amb., Unsteady balance w/ amb,, Fatigue w/ amb., Limited distance walking POST DISCHARGE ORDERS: Activity Instructions for Disc: Activity as tolerated Weight Bearing Status after Di: No restrictions DIET AFTER DISCHARGE: Low Sodium 2 gm CHECKS AFTER DISCHARGE: Checks after discharge: Weigh Yourself Daily TREATMENT/EQUIPMENT ORDERS: Discharge Respiratory Equipmen: Oxygen, Nebulizer CERTIFICATION STATEMENT: Certification Statement: Based on the above finding, I certify that this patient is confined to the home and needs intermittent care home care, physical therapy and/or speech therapy, or continues to need occupational therapy.~ This patient is under my care, and I have initiated the establishment of the plan of care.~ This patient will be followed by myself or a community physician who will periodically review the plan of care. DISCHARGE MEDICATIONS: Home Meds Active Scripts Fluconazole (DIFLUCAN) 200 Mg Tablet, 1 TAB PO DAILY for thrush, #7 TAB Prov:SANDRA NEGRETE MD 03/05/19 Ondansetron (ONDANSETRON ODT) 4 Mg Tab.rapdis, 4 MG PO PRN Q8HRS PRN for NAUSEA/VOMITING, #30 TAB 3 Refills Prov:SANDRA NEGRETE MD 03/05/19 Sodium Chloride (DEEP SEA) 44 Ml Mcgrady, 1 PARVEZ NS PRN Q1HR PRN for NASAL CONGESTION, #1 SPRAY Prov:SANDRA NEGRETE MD 03/05/19 Hydrocodone Bit/Acetaminophen (HYDROCODONE-APAP 7.5-325 ) 1 Each Tablet, 2 TAB PO PRN Q6HRS PRN for PAIN, #100 TAB for breakthrough pain Prov:SANDRA NEGRETE MD 03/05/19 Nystatin (NYSTATIN) 100,000 Unit/1 Ml Oral.susp, 5 ML SWSW QID for thrush, #60 ML Prov:SANDRA NEGRETE MD 03/05/19 Lactobacillus Rhamnosus Gg (CULTURELLE) 1 Each Cap.sprink, 1 CAP PO BID for preventitive for 30 Days, #60 CAP Prov:SANDRA NEGRETE MD 03/05/19 Prednisone (PREDNISONE) 20 Mg Tablet, 5 MG PO DAILY for inflammation, #120 TAB Take 8 tablets daily and decrease by 1 tablet every third day until 2 tablets. Continue on 10mg daily Prov:SANDRA NEGRETE MD 04/05/18 Furosemide (FUROSEMIDE) 40 Mg Tablet, 40 MG PO DAILY for edema, #30 TAB Prov:SANDRA NEGRETE MD 04/05/18 Potassium Chloride (KLOR-CON M20) 20 Meq Tab.er.prt, 20 MEQ PO DAILY for replacement, #30 TAB.SR 2 Refills Prov:SANDRA NEGRETE MD 04/05/18 Hydrocodone Bit/Acetaminophen (NORCO 7.5-325 TABLET) 1 Each Tablet, 1 TAB PO PRN Q6HRS PRN for PAIN, #90 TAB 0 Refills For break through pain Prov:SANDRA NEGRETE MD 04/05/18 Zolpidem Tartrate (AMBIEN) 10 Mg Tablet, 1 TAB PO QHS for sleep, #30 TAB 5 Refills Prov:SANDRA NEGRETE MD 04/05/18 Morphine Sulfate (MS CONTIN) 30 Mg Tablet.er, 1 TAB PO BID for pain, #60 TAB LAST DOSE GIVEN: DATE: TODAY TIME: AM NEXT DOSE DUE: DATE: TODAY TIME: PM Prov:SANDRA NEGRETE MD 04/05/18 Lorazepam (LORAZEPAM) 0.5 Mg Tablet, 1 TAB PO TID PRN for ANXIETY / AGITATION, #90 TAB 1 Refill Prov:SANDRA NEGRETE MD 04/05/18 Ipratropium/Albuterol Sulfate (DUONEB 0.5-3(2.5) MG/3 ML) 3 Ml Ampul.neb, 3 ML NEB RTQID for Shortness of breath for 30 Days, #120 EACH Prov:SANDRA NEGRETE MD 04/04/18 Docusate Sodium (COLACE) 100 Mg Capsule, 100 MG PO PRN DAILY PRN for CONSTIPATION, #60 CAP Prov:SANDRA NEGRETE MD 04/04/18 Acetaminophen (TYLENOL) 325 Mg Tablet, 650 MG PO PRN Q6HRS PRN for PAIN / TEMP for 30 Days, TAB Prov:SANDRA NEGRETE MD 03/31/18 Budesonide (BUDESONIDE) 0.5 Mg/2 Ml Ampul.neb, 0.5 MG NEB RTBID, #120 EACH 3 Refills Prov:SANDRA NEGRETE MD 12/21/17 Levothyroxine Sodium (LEVOTHYROXINE SODIUM) 112 Mcg Tablet, 1 TAB PO DAILY, #90 TAB 3 Refills LAST DOSE GIVEN: DATE: TODAY TIME: AM NEXT DOSE DUE: DATE: TOMORROW TIME: AM Prov:SANDRA NEGRETE MD 12/21/17 Multivitamin (MULTI-DAY VITAMINS) 1 Each Tablet, 1 TAB PO DAILY for mvi, #30 TAB Prov:SANDRA NEGRETE MD 05/03/16 Hydroxychloroquine Sulfate (HYDROXYCHLOROQUINE SULFATE) 200 Mg Tablet, 1 TAB PO BID, #180 TAB 1 Refill Prov:SANDRA NEGRETE MD 05/03/16 Rosuvastatin Calcium (CRESTOR) 20 Mg Tablet, 1 TAB PO DAILY for heart, #30 TAB 5 Refills Prov:SANDRA NEGRETE MD 05/03/16 Reported Medications Gabapentin (Gabapentin) 300 Mg Capsule, 1 MG PO TID for NERVE PAIN LAST DOSE GIVEN: DATE: TODAY TIME: AM NEXT DOSE DUE: DATE: TODAY TIME: AFTERNOON 08/17/17 Guaifenesin (MUCINEX) 600 Mg Tablet.er, 1 TAB PO BID for LOOSEN PHLEGM LAST DOSE GIVEN: DATE: TODAY TIME: AM NEXT DOSE DUE: DATE: TODAY TIME: PM 03/31/17 Cholecalciferol (Vitamin D3) (VITAMIN D) 2,000 Unit Capsule, 1 CAP PO DAILY for SUPPLEMENT LAST DOSE GIVEN: DATE: TODAY TIME: AM NEXT DOSE DUE: DATE: TOMORROW TIME: AM 03/31/17 Pantoprazole Sodium (PROTONIX) 40 Mg Tablet.dr, 1 TAB PO DAILY for PREVENT HEARTBURN LAST DOSE GIVEN: DATE: TODAY TIME: AM NEXT DOSE DUE: DATE: TOMORROW TIME: AM 03/31/17 Duloxetine Hcl (CYMBALTA) 20 Mg Capsule.dr, 3 CAP PO DAILY for DEPRESSION LAST DOSE GIVEN: DATE: TODAY TIME: AM NEXT DOSE DUE: DATE: TOMORROW TIME: AM 05/31/14 Aspirin (ASPIRIN) 81 Mg Tab.chew, 1 TAB PO DAILY for PREVENT BLOOD CLOTS LAST DOSE GIVEN: DATE: TODAY TIME: AM NEXT DOSE DUE: DATE: TOMORROW TIME: AM 05/31/14 Discontinued Scripts Promethazine Hcl/Codeine (PROMETHAZINE-CODEINE SYRUP) 118 Ml Syrup, 5 ML PO PRN Q6HRS PRN for COUGH for 30 Days, #120 ML Prov:SANDRA NEGRETE MD 04/05/18 SANDRA NEGRETE MD Mar 05, 2019 09:01
[2019-03-05] MEDS: BUDESONIDE 0.5 MG/2 ML NEBU NEB SCH (11:13)
--- NOTE | 2019-03-05 22:10 | DS ---
DATE OF DISCHARGE: 03/05/2019 HOSPITAL COURSE: A 59-year-old gentleman came in with increased shortness of breath. He was on the skilled unit here for rehabilitation. He initially came in with acute respiratory failure secondary to Haemophilus influenza. The patient made good progress on the skilled unit. Continue with PT, OT. Continuing IV antibiotic therapy. The patient's white count was slightly elevated, probably due to the prednisone and he was tapering off that as well as his blood sugars were reasonably in the low 100s, as we tapered him down off that. His sodium and potassium 140 and 4.4, albumin slightly low at 3. The patient C- difficile, he had some diarrhea, was negative. In any case, the patient made excellent progress during the rest of his hospitalization. He remained on 15 liters; however, was at 98% and the patient was breathing much easier. His last blood pressure 120/80, respiratory rate 22, pulse 86, afebrile. The patient's discharge weight is approximately 171 kilograms. In any case, the patient showed marked improvement in his lungs. There are some scattered rhonchi in the bases, but much improved from where he first came in through the initial admission. IMPRESSION: Acute on top of chronic respiratory failure, acute exacerbation of chronic obstructive pulmonary disease, secondary to Haemophilus influenza, hyperglycemia, probably secondary to steroids, morbid obesity, history of pulmonary fibrosis, [id number] protein malnutrition. The patient continued to be monitored carefully and discharged home on a heart healthy, low sodium diet, decreased activity. Continue with his breathing treatments and be followed up carefully as an outpatient. SANDRA NEGRETE MD DR: RMAONA/neetu JOB#: [id number] / [id number]
== END 2019-03-05 18:00 | disposition home health service (06) | DRG 189 ==
LOC: LND 14:43
PROVIDERS: ADMIT Family Medicine; ATTEND Internal Medicine
PROC: 5A09357 Assistance with Respiratory Ventilation, Less than 24 Consecutive Hours, Continuous Positive Airway Pressure (ICD-10-PCS; principal; 2019-02-24)
PROC: 5A09357 Assistance with Respiratory Ventilation, Less than 24 Consecutive Hours, Continuous Positive Airway Pressure (ICD-10-PCS; 2019-02-26)
PROC: 5A09357 Assistance with Respiratory Ventilation, Less than 24 Consecutive Hours, Continuous Positive Airway Pressure (ICD-10-PCS; 2019-02-27)
PROC: 5A09357 Assistance with Respiratory Ventilation, Less than 24 Consecutive Hours, Continuous Positive Airway Pressure (ICD-10-PCS; 2019-02-28)
PROC: 5A09357 Assistance with Respiratory Ventilation, Less than 24 Consecutive Hours, Continuous Positive Airway Pressure (ICD-10-PCS; 2019-03-01)
PROC: 5A09357 Assistance with Respiratory Ventilation, Less than 24 Consecutive Hours, Continuous Positive Airway Pressure (ICD-10-PCS; 2019-03-02)
PROC: 5A09357 Assistance with Respiratory Ventilation, Less than 24 Consecutive Hours, Continuous Positive Airway Pressure (ICD-10-PCS; 2019-03-03)
PROC: 5A09357 Assistance with Respiratory Ventilation, Less than 24 Consecutive Hours, Continuous Positive Airway Pressure (ICD-10-PCS; 2019-03-05)
DX: J96.20 Acute and chronic respiratory failure, unspecified whether with hypoxia or hypercapnia (principal); J18.9 Pneumonia, unspecified organism; J44.1 Chronic obstructive pulmonary disease with (acute) exacerbation; E44.0 Moderate protein-calorie malnutrition; J44.0 Chronic obstructive pulmonary disease with (acute) lower respiratory infection; B96.3 Hemophilus influenzae [H. influenzae] as the cause of diseases classified elsewhere; T38.0X5A Adverse effect of glucocorticoids and synthetic analogues, initial encounter; Y92.89 Other specified places as the place of occurrence of the external cause; E66.01 Morbid (severe) obesity due to excess calories; Z68.29 Body mass index [BMI] 29.0-29.9, adult; J84.10 Pulmonary fibrosis, unspecified; Z66 Do not resuscitate
CPT/HCPCS: 36415; 80048; 80053; 85007; 85025; 87493; 94640; 94760; J1450; J2185; J2920; J7620; J7626; Q0162; 97110; 97116; 97530; 97535